=== PATIENT | female | born 1945 | race Caucasian/White ===

== ENCOUNTER 2016-11-01 19:38 | Emergency (ER) | payer BC ==
[2016-11-01 20:20] VITALS: TEMP 98.1; BMI 27.3
--- NOTE | 2016-11-01 21:13 | PDOC ---
History of Present Illness - General History Source: Patient, Family Exam Limitations: No Limitations - History of Present Illness Initial Comments: 11/01/16 21:23 The patient is a 71 year old female with significant past medical history of hypertension, hyperlipidemia, lung CA with bony mets, borderline diabetes and hypothyroidism who presents to the ED for 3 weeks of headache. Patient describes her frontal headache as constant and 8/10 with no changes in vision or dizziness. Daughter, at bedside, noted increased weakness in her legs and states she fell once last week because her legs gave out. Denies LOC or head trauma. Patient also reports 1 week of nausea, vomiting and no appetite secondary to the nausea. Denies abdominal pain and diarrhea. The patient denies fever, chills, cough, SOB, chest pain, and palpitations. Allergies: NKDA Social History: No alcohol, tobacco, or drug use reported. Past Surgical History: hysterectomy PCP: Dr. Florian Clarke <Kamla Lazcano - Last Filed: 11/01/16 21:25> - General History Source: Patient <Baudilio Garner - Last Filed: 11/01/16 23:15> - General Chief Complaint: Headache Stated Complaint: PCP SENT/EVALUATION Time Seen by Provider: 11/01/16 20:38 Past History <Kamla Lazcano - Last Filed: 11/01/16 21:25> - Past Medical History Anemia: No Asthma: No Cancer: Yes (ENDOMETRIAL MANY YRS AGO) Cardiac Disorders: No CVA: No COPD: No CHF: No Dementia: No Diabetes: Yes (BORDERLINE) GI Disorders: No Disorders: No HTN: Yes Hypercholesterolemia: No Liver Disease: No Seizures: No Thyroid Disease: Yes (HYPOTHYROID) - Surgical History Abdominal Surgery: No Appendectomy: No Cardiac Surgery: No Cholecystectomy: No Lung Surgery: No Neurologic Surgery: No Orthopedic Surgery: No - Immunization History Immunization Up to Date: Yes - Psycho/Social/Smoking Cessation Hx Suicidal Ideation: No Smoking History: Former smoker Have you smoked in the past 12 months: No If you are a former smoker, when did you quit?: 40yrs ago Information on smoking cessation initiated: No Hx Alcohol Use: No Drug/Substance Use Hx: No Substance Use Type: None Hx Substance Use Treatment: No <Baudilio Garner - Last Filed: 11/01/16 23:15> - Past Medical History Allergies/Adverse Reactions: Allergies Allergy/AdvReac Type Severity Reaction Status Date / Time No Known Drug Allergies Allergy Verified 11/01/16 20:14 Home Medications: Ambulatory Orders Atenolol [Tenormin -] 50 mg PO DAILY 08/04/14 Levothyroxine [Synthroid -] 50 mcg PO DAILY 08/04/14 Ramipril 2.5 mg PO DAILY 08/04/14 Amlodipine Besylate [Norvasc -] 5 mg PO DAILY 08/25/15 Review of Systems - Review of Systems Able to Perform ROS?: Yes Comments:: 11/01/16 21:23 CONSTITUTIONAL: +decrease appetite Absent: fever, chills, diaphoresis, malaise HEENT: Absent: rhinorrhea, nasal congestion, throat pain, throat swelling, difficulty swallowing, ear pain, eye pain, visual Changes CARDIOVASCULAR: Absent: chest pain, syncope, palpitations, irregular heart rate, lightheadedness , peripheral edema RESPIRATORY: Absent: cough, shortness of breath, dyspnea with exertion, orthopnea, wheezing, stridor, hemoptysis GASTROINTESTINAL: +nausea, vomiting Absent: abdominal pain, abdominal distension, diarrhea, constipation, melena, hematochezia GENITOURINARY: Absent: dysuria, frequency, urgency, hesitancy, hematuria, flank pain, genital pain MUSCULOSKELETAL: +leg weakness Absent: myalgia, arthralgia, joint swelling SKIN: Absent: rash, itching, pallor NEUROLOGIC: +frontal headache Absent: focal paresthesias, dizziness, seizure, mental status changes, bladder or bowel incontinence <Kamla Lazcano - Last Filed: 11/01/16 21:25> *Physical Exam - Vital Signs Last Vital Signs Temp Pulse Resp BP Pulse Ox 98.1 F 105 H 17 143/93 98 11/01/16 20:14 11/01/16 20:14 11/01/16 20:14 11/01/16 20:14 11/01/16 20:14 - Physical Exam Comments: 11/01/16 21:23 GENERAL: Well developed, well nourished. Awake and alert. No acute distress. HEENT: Normocephalic, atraumatic. PERRLA, EOMI. No conjunctival pallor. Sclera are non- icteric. Moist mucous membranes. Oropharynx is clear. NECK: Supple. Full ROM. No JVD. Carotid pulses 2+ and symmetric, without bruits. No thyromegaly. No lymphadenopathy. CARDIOVASCULAR: Regular rate and rhythm. No murmurs, rubs, or gallops. PULMONARY: No evidence of respiratory distress. Lungs clear to auscultation bilaterally. No wheezing, rales or rhonchi. ABDOMINAL: Obese. Soft. Non-tender. Non-distended. No rebound or guarding. Normoactive bowel sounds. MUSCULOSKELETAL Normal range of motion at all joints. No bony deformities or tenderness. No CVA tenderness. EXTREMITIES: No cyanosis. No clubbing. No edema. No calf tenderness. SKIN: Warm and dry. Normal capillary refill. No rashes. No jaundice. NEUROLOGICAL: Alert, awake, appropriate. Cranial nerves 2-12 intact. Moving all extremities. No gross focal neurological deficits. <Kamla Lazcano - Last Filed: 11/01/16 21:25> - Vital Signs Last Vital Signs Temp Pulse Resp BP Pulse Ox 98.1 F 105 H 17 143/93 98 11/01/16 20:14 11/01/16 20:14 11/01/16 20:14 11/01/16 20:14 11/01/16 20:14 <Baudilio Garner - Last Filed: 11/01/16 23:15> ED Treatment Course - LABORATORY CBC & Chemistry Diagram: 11/01/16 21:40 11/01/16 21:40 <Baudilio Garner - Last Filed: 11/01/16 23:15> Medical Decision Making - Medical Decision Making 11/01/16 23:15 Dr. Garner: The scribe's documentation has been prepared under my direction and personally reviewed by me in its entirery. I confirm that the note above accurately reflects all work, treatment, procedures, and medical decision making performed by me. <Baudilio Garner - Last Filed: 11/01/16 23:15> *DC/Admit/Observation/Transfer - Attestations Scribe Attestion: 11/01/16 21:23 Documentation prepared by Kamla Lazcano, acting as medical oncologist for Baudilio Garner MD <Kamla Lazcano - Last Filed: 11/01/16 21:25> - Discharge Dispostion Admit: No <Baudilio Garner - Last Filed: 11/01/16 23:15> Diagnosis at time of Disposition: Headache Qualifiers: Headache type: unspecified Headache chronicity pattern: unspecified pattern Intractability: not intractable Qualified Code(s): R51 - Headache - Discharge Dispostion Disposition: HOME Condition at time of disposition: Stable - Referrals Referrals: Florian Clarke MD [Primary Care Provider] - - Patient Instructions Printed Discharge Instructions: DI for Headache
[2016-11-01] MEDS ORDERED: SODIUM CHLORIDE 1,000 ML IV STA (21:17)
[2016-11-01 21:49] LABS: BASOPHIL 1.3 % (0-2.0); EOSINOPHIL 0.2 % (0-4.5); MCH 28.9 pg (25.7-33.7); MEAN CELL VOLUME 87.8 fl (80-96); MEAN PLT VOLUME 8.4 fl (7.5-11.1); NEUTROPHILS 80.5 % (42.8-82.8); PLATELET COUNT 202 K/MM3 (134-434); RDW 14.5 % (11.6-15.6); WHITE BLOOD COUNT 7.7 K/mm3 (4.0-10.0)
[2016-11-01 22:02] LABS: INR 1.04 (0.82-1.09); PROTHROMBIN TIME (PATIENT) 11.4 SEC (9.98-11.88)
[2016-11-01 22:21] LABS: ALBUMIN 3.7 g/dl (3.4-5.0); BILIRUBIN,TOTAL 0.5 mg/dL (0.2-1.0); CALCIUM 9.3 mg/dL (8.5-10.1); COCKROFT - GAULT 38.6325; CREATININE 1.3 mg/dL (0.55-1.02); TOT PROT 7.2 g/dl (6.4-8.2)
[2016-11-01 22:25] LABS: MAGNESIUM 1.7 mg/dL (1.8-2.4)
[2016-11-01] MEDS ORDERED: OXYCODONE/APAP 5/325MG COMBO TABLET PO ONE (22:42)
[2016-11-01] MEDS ORDERED: OXYCODONE/APAP 5/325MG COMBO TABLET ONE (22:49)
[2016-11-01 23:53] VITALS: BP 138/84; PULSE 90
== END 2016-11-01 23:52 | disposition home or self-care (01) ==
LOC: JER 19:38
PROC: 3E0337Z Introduction of Electrolytic and Water Balance Substance into Peripheral Vein, Percutaneous Approach (ICD-10-PCS; principal; 2016-11-01)
DX: R51 Headache (principal); I10 Essential (primary) hypertension; E78.00 Pure hypercholesterolemia, unspecified; E11.9 Type 2 diabetes mellitus without complications; E03.9 Hypothyroidism, unspecified; Z85.118 Personal history of other malignant neoplasm of bronchus and lung; Z85.830 Personal history of malignant neoplasm of bone
CPT/HCPCS: 36415; 70450-TC; 80053; 82150; 83735; 85025; 85610; 99282-25

== ENCOUNTER 2016-11-06 18:35 | Inpatient (IN) | payer BC, OTHER ==
[2016-11-06] MEDS ORDERED: SODIUM CHLORIDE 1,000 ML IV STA (19:20)
[2016-11-06] MEDS ORDERED: METOCLOPRAMIDE HCL INJECTION 10 MG/2 ML VIAL IVPB ONE (19:20)
[2016-11-06] MEDS ORDERED: METOCLOPRAMIDE HCL INJECTION 10 MG/2 ML VIAL ONE (19:28)
--- NOTE | 2016-11-06 19:38 | PDOC ---
History of Present Illness - General Chief Complaint: Lethargy Stated Complaint: WEAKNESS Time Seen by Provider: 11/06/16 18:52 History Source: Patient, Family Exam Limitations: Clinical Condition - History of Present Illness Initial Comments: 11/06/16 19:39 71yo Female patient w/ PmHx: Lung CA Mets to bone, ??DM, HLD, HTN, Hypothyroidism presents to ED with family c/o lethargy, poor appetite, and vomiting. states patient was seen in this ED last Saturday. He states patient sent by Dr. Blankenship (Oncologist) for "Brain Scan." Patient was then d/c'd to home, but has not really eaten and has no energy since then. Denies Fever, hemoptysis, hematemesis, rectal bleeding, or any other complaints at this time. PCP- Dr. Clarke Oncologist- Dr. Blankenship Timing/Duration: getting worse, changing over time Severity: moderate Modifying Factors: worse with: cold therapy, eating, immobilization, medication , movement, rest, other Associated Symptoms: reports: loss of appetite, nausea/vomiting, weakness. denies: denies symptoms, chest pain, cough, diaphoresis, fever/chills, headaches , malaise, rash, seizure, shortness of breath, syncope, other Aspirin Received prior to arrival: No: no aspirin today, unknown, 81 mg x 1, 81 mg x 2, 81 mg x 3, 81 mg x 4, 325 mg x 1, provided at home, provided by EMS, provided by ED Past History - Travel Traveled outside of the country in the last 30 days: No Close contact w/someone who was outside of country & ill: No - Past Medical History Allergies/Adverse Reactions: Allergies Allergy/AdvReac Type Severity Reaction Status Date / Time No Known Drug Allergies Allergy Verified 11/06/16 18:50 Home Medications: Ambulatory Orders Unobtainable [Unobtainable] 11/07/16 Anemia: No Asthma: No Cancer: Yes (H/O ENDOMETRIAL. LUNG.) Cardiac Disorders: No CVA: No COPD: No CHF: No Dementia: No Diabetes: Yes GI Disorders: No Disorders: No HTN: Yes Hypercholesterolemia: No Liver Disease: No Seizures: No Thyroid Disease: Yes (HYPOTHYROID) - Surgical History Abdominal Surgery: No Appendectomy: No Cardiac Surgery: No Cholecystectomy: No Lung Surgery: No Neurologic Surgery: No Orthopedic Surgery: No - Immunization History Immunization Up to Date: Yes - Psycho/Social/Smoking Cessation Hx Anxiety: No Suicidal Ideation: No Smoking History: Never smoked Have you smoked in the past 12 months: No If you are a former smoker, when did you quit?: 40yrs ago Hx Alcohol Use: No Drug/Substance Use Hx: No Substance Use Type: None Hx Substance Use Treatment: No Review of Systems - Review of Systems Able to Perform ROS?: Yes Is the patient limited Japanese proficient: No Constitutional: Yes: Loss of Appetite, Weakness. No: Chills, Fever HEENTM: No: Throat Pain, Mouth Pain Respiratory: No: Cough, Shortness of Breath Cardiac (ROS): No: Chest Pain, Edema, Lightheadedness, Palpitations, Syncope, Chest Tightness ABD/GI: Yes: Nausea, Poor Appetite, Poor Fluid Intake, Vomiting. No: Constipated, Diarrhea, Rectal Bleeding, Abdominal cramping : No: Dysuria Musculoskeletal: Yes: Muscle Weakness. No: Back Pain Integumentary: No: Erythema, Rash, Sweating Neurological: Yes: Weakness. No: Headache, Seizure, Dizziness All Other Systems: Reviewed and Negative *Physical Exam - Vital Signs Last Vital Signs Temp Pulse Resp BP Pulse Ox 97.8 F 60 16 148/64 96 11/06/16 18:40 11/06/16 18:40 11/06/16 18:40 11/06/16 18:40 11/06/16 18:40 - Physical Exam General Appearance: Yes: Appropriately Dressed, Other (Disheveled). No: Apparent Distress, Mild Distress, Moderate Distress, Severe Distress HEENT: positive: EOMI, DAVID, Normal ENT Inspection, Normal Voice, Symmetrical, TMs Normal, Pharynx Normal. negative: Pharyngeal Erythema, Tonsillar Exudate, Tonsillar Erythema, Nasal Congestion, Rhinorrhea, TM Bulging, TM Dull, TM Erythema Neck: positive: Trachea midline, Supple. negative: Lymphadenopathy (R), Lymphadenopathy (L) Respiratory/Chest: positive: Lungs Clear, Decreased Breath Sounds. negative: Normal Breath Sounds, Respiratory Distress, Accessory Muscle Use, Labored Respiration, Rapid RR, Rales, Rhonchi, Stridor, Wheezing Cardiovascular: positive: Regular Rhythm, Regular Rate Gastrointestinal/Abdominal: positive: Normal Bowel Sounds, Soft. negative: Distended, Guarding, Rebound, Tenderness Musculoskeletal: positive: Normal Inspection. negative: CVA Tenderness Extremity: positive: Normal Capillary Refill, Normal Inspection, Normal Range of Motion. negative: Pedal Edema, Swelling, Calf Tenderness, Erythema, Inflammation Integumentary: positive: Dry, Warm, Pale. negative: Erythema, Jaundice, Swelling Neurologic: positive: security systems specialist II-XII NML intact, Fully Oriented, Alert, Normal Response. 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
[2016-11-06 20:06] LABS: BASOPHIL 0.3 % (0-2.0); EOSINOPHIL 0.2 % (0-4.5); MCH 29.3 pg (25.7-33.7); MCHC 33.4 g/dl (32.0-36.0); MEAN CELL VOLUME 87.7 fl (80-96); MEAN PLT VOLUME 8.1 fl (7.5-11.1); NEUTROPHILS 80.6 % (42.8-82.8); PLATELET COUNT 236 K/MM3 (134-434); RDW 14.3 % (11.6-15.6); WHITE BLOOD COUNT 8.4 K/mm3 (4.0-10.0)
--- NOTE | 2016-11-06 21:35 | PDOC ---
*Physical Exam - Vital Signs Last Vital Signs Temp Pulse Resp BP Pulse Ox 97.8 F 60 16 148/64 96 11/06/16 18:40 11/06/16 18:40 11/06/16 18:40 11/06/16 18:40 11/06/16 18:40 ED Treatment Course - LABORATORY CBC & Chemistry Diagram: 11/07/16 03:39 11/07/16 03:39 - ADDITIONAL ORDERS Additional order review: Laboratory Results 11/06/16 19:48 Sodium Cancelled Potassium Cancelled Chloride Cancelled Carbon Dioxide Cancelled Anion Gap Cancelled BUN Cancelled Creatinine Cancelled Creat Clearance w eGFR Cancelled Random Glucose Cancelled Calcium Cancelled Total Bilirubin Cancelled AST Cancelled ALT Cancelled Alkaline Phosphatase Cancelled Creatine Kinase Cancelled Troponin I Cancelled Total Protein Cancelled Albumin Cancelled Total Amylase Cancelled Lipase Cancelled 11/06/16 19:48 RBC 4.86 MCV 87.7 MCHC 33.4 RDW 14.3 MPV 8.1 Neutrophils % 80.6 Lymphocytes % 11.7 Monocytes % 7.2 Eosinophils % 0.2 Basophils % 0.3 - Medications Given in the ED: ED Medications Discontinued Medications Generic Name Dose Route Start Last Admin Trade Name Freq PRN Reason Stop Dose Admin Sodium Chloride 1,000 mls @ 1,000 mls/hr 11/06/16 19:20 11/06/16 19:50 Normal Saline - IV 11/06/16 20:19 1,000 mls/hr ASDIR STA Administration Metoclopramide HCl 10 mg 11/06/16 19:20 11/06/16 19:50 Reglan Injection - IVPB 11/06/16 19:21 10 mg ONCE ONE Administration Medical Decision Making - Medical Decision Making 11/06/16 21:35 agree with care from PITER Cedillo *DC/Admit/Observation/Transfer Diagnosis at time of Disposition: Lung cancer metastatic to bone, Altered mental status, Dehydration - Discharge Dispostion Condition at time of disposition: Fair
[2016-11-07] MEDS ORDERED: SODIUM CHLORIDE 1,000 ML IV STA (01:19)
[2016-11-07 03:51] LABS: BASOPHIL 0.8 % (0-2.0); EOSINOPHIL 0.4 % (0-4.5); MCH 29.4 pg (25.7-33.7); MCHC 33.8 g/dl (32.0-36.0); MEAN CELL VOLUME 86.9 fl (80-96); MEAN PLT VOLUME 7.8 fl (7.5-11.1); NEUTROPHILS 78.4 % (42.8-82.8); PLATELET COUNT 189 K/MM3 (134-434); WHITE BLOOD COUNT 8.4 K/mm3 (4.0-10.0)
[2016-11-07 04:18] LABS: BILIRUBIN,TOTAL 0.7 mg/dL (0.2-1.0); CALCIUM 8.2 mg/dL (8.5-10.1); COCKROFT - GAULT 52.02; TOT PROT 5.9 g/dl (6.4-8.2)
[2016-11-07] MEDS ORDERED: SODIUM CHLORIDE 1,000 ML IV SCH (06:00)
[2016-11-07] MEDS ORDERED: ONDANSETRON 4 MG/2 ML VIAL IVPB PRN (06:07)
[2016-11-07 06:13] LABS: TROPONIN I 0.04 ng/ml (0.00-0.05)
[2016-11-07] MEDS: D5-1/2NS+20 MEQ KCL - 1,000 ML IV SCH (08:24)
[2016-11-07 11:09] VITALS: BMI 27.8
[2016-11-07] MEDS: ENOXAPARIN NA (PORCINE) 40 MG/0.4 ML DISP.SYRIN SQ SCH (11:28)
--- NOTE | 2016-11-07 13:58 | EKG ---
Test Reason : Blood Pressure : / mmHG Vent. Rate : 061 BPM Atrial Rate : 061 BPM P-R Int : 176 ms QRS Dur : 082 ms QT Int : 416 ms P-R-T Axes : 024 -11 020 degrees QTc Int : 418 ms NORMAL SINUS RHYTHM ANTERIOR INFARCT , AGE UNDETERMINED ABNORMAL ECG WHEN COMPARED WITH ECG OF 25-AUG-2015 03:23, NO SIGNIFICANT CHANGE WAS FOUND Confirmed by LUIS SUERO MD ([id number]) on 11/07/2016 1:57:44 PM Referred By: Confirmed By:LUIS SUERO MD
--- NOTE | 2016-11-07 17:34 | HP ---
Admitting History and Physical - Primary Care Physician PCP: Florian Clarke - Admission Chief Complaint: I feel fine History of Present Illness: Ms Walter is a 71 year old female with history of malignancy who was brought in by her family for anorexia. Patient says she feels fine and is without complaint. She denies fevers, chills, lightheadedness, dizziness, chest pain, shortness of breath, nausea, vomiting, diarrhea, constipation, difficulty or pain on urination, or swelling. Family is at bedside and says Ms Walter was complaining of headache that has now resolved and not eating for the past 4 days , even though they say she was taking ensure. History Source: Patient Limitations to Obtaining History: No Limitations - Past Medical History Cardiovascular: Yes: HTN Pulmonary: Yes: Cancer Heme/Onc: Yes: Cancer Endocrine: Yes: Hypothyroidism, Other (borderline diabetes) - Past Surgical History Past Surgical History: Yes: Hysterectomy - Smoking History Smoking history: Former smoker Have you smoked in the past 12 months: No If you are a former smoker, when did you quit?: 40yrs ago - Alcohol/Substance Use Hx Alcohol Use: No History of Substance Use: reports: None - Social History Usual Living Arrangement: Yes: Other (with family) ADL: Independent History of Recent Travel: No Home Medications - Allergies Allergies/Adverse Reactions: Allergies Allergy/AdvReac Type Severity Reaction Status Date / Time No Known Drug Allergies Allergy Verified 11/06/16 18:50 - Home Medications Home Medications: Ambulatory Orders Atenolol 50 mg PO DAILY 11/07/16 Oxycodone HCl 5 mg PO Q4HWA PRN 11/07/16 Ramipril 2.5 mg PO DAILY 11/07/16 Family Disease History - Family Disease History Family Disease History: Heart Disease: Father, CA: Mother, Brother Review of Systems Findings/Remarks: Full review of systems obtained, as per HPI and otherwise negative Physical Examination Vital Signs: Vital Signs Temperature 97.9 F 11/07/16 14:00 Pulse Rate 62 11/07/16 14:00 Respiratory Rate 11/07/16 14:00 Blood Pressure 159/88 11/07/16 11:14 O2 Sat by Pulse Oximetry (%) 95 11/07/16 06:45 Constitutional: Yes: Well Nourished, No Distress, Calm Eyes: Yes: Conjunctiva Clear, EOM Intact, PERRL HENT: Yes: Atraumatic, Normocephalic Cardiovascular: Yes: Regular Rate and Rhythm. No: Gallop, Murmur, Rub Respiratory: Yes: Regular, CTA Bilaterally. No: Rales, Rhonchi, Wheezes Gastrointestinal: Yes: Normal Bowel Sounds, Soft. No: Distention, Tenderness Extremities: Yes: WNL Edema: No Labs: Laboratory Results - last 24 hr 11/06/16 11/06/16 11/07/16 19:48 19:48 02:30 WBC 8.4 Corrected WBC (auto) RBC 4.86 Hgb 14.2 Hct 42.6 MCV 87.7 MCHC 33.4 RDW 14.3 Plt Count 236 MPV 8.1 Add Manual Diff Neutrophils % 80.6 Lymphocytes % 11.7 Monocytes % 7.2 Eosinophils % 0.2 Basophils % 0.3 Differential Comment Smudge Cells Platelet Estimate Platelet Comment Normal RBC Morphology RBC Morphology Sodium Cancelled Cancelled Potassium Cancelled Cancelled Chloride Cancelled Cancelled Carbon Dioxide Cancelled Cancelled Anion Gap Cancelled Cancelled BUN Cancelled Cancelled Creatinine Cancelled Cancelled Creat Clearance w eGFR Cancelled Cancelled Random Glucose Cancelled Cancelled Calcium Cancelled Cancelled Total Bilirubin Cancelled Cancelled AST Cancelled Cancelled ALT Cancelled Cancelled Alkaline Phosphatase Cancelled Cancelled Creatine Kinase Cancelled Cancelled Troponin I Cancelled Cancelled Total Protein Cancelled Cancelled Albumin Cancelled Cancelled Total Amylase Cancelled Lipase Cancelled 11/07/16 11/07/16 11/07/16 02:30 03:39 03:39 WBC Cancelled 8.4 Corrected WBC (auto) Cancelled RBC Cancelled 4.08 Hgb Cancelled 12.0 D Hct Cancelled 35.5 D MCV Cancelled 86.9 MCHC Cancelled 33.8 RDW Cancelled 14.0 Plt Count Cancelled 189 MPV Cancelled 7.8 Add Manual Diff Cancelled Neutrophils % Cancelled 78.4 Lymphocytes % Cancelled 12.2 Monocytes % Cancelled 8.2 Eosinophils % Cancelled 0.4 D Basophils % Cancelled 0.8 Differential Comment Cancelled Smudge Cells Cancelled Platelet Estimate Cancelled Platelet Comment Cancelled Normal RBC Morphology Cancelled RBC Morphology Cancelled Sodium 138 Potassium 3.6 Chloride 104 Carbon Dioxide 26 Anion Gap 8 BUN 27 H D Creatinine 1.0 D Creat Clearance w eGFR 54.35 Random Glucose 116 H D Calcium 8.2 L Total Bilirubin 0.7 D AST 11 L D ALT 19 D Alkaline Phosphatase 61 Creatine Kinase Troponin I Total Protein 5.9 L Albumin 3.0 L Total Amylase Lipase 11/07/16 11/07/16 03:39 03:39 WBC Corrected WBC (auto) RBC Hgb Hct MCV MCHC RDW Plt Count MPV Add Manual Diff Neutrophils % Lymphocytes % Monocytes % Eosinophils % Basophils % Differential Comment Smudge Cells Platelet Estimate Platelet Comment Normal RBC Morphology RBC Morphology Sodium Potassium Chloride Carbon Dioxide Anion Gap BUN Creatinine Creat Clearance w eGFR Random Glucose Calcium Total Bilirubin AST ALT Alkaline Phosphatase Creatine Kinase Cancelled 38 Troponin I Cancelled 0.04 Total Protein Albumin Total Amylase Lipase Imaging - Results Chest X-ray: Report Reviewed, Image Reviewed Cat Scan: Report Reviewed, Image Reviewed Problem List - Problems (1) Dehydration Assessment/Plan: -resolved -will continue IVF for another 24 hours Code(s): E86.0 - DEHYDRATION (2) Failure to thrive Assessment/Plan: -secondary to malignancy vs chemotherapy -patient says she has loss of appetite and change in taste -will trial megace -continue ensure -encouraged to eat -PT consult Code(s): [id number] - Qualifiers: Failure to thrive age range: in adult Qualified Code(s): R62.7 - Adult failure to thrive (3) Lung cancer metastatic to bone Assessment/Plan: -oncology consulted Code(s): C34.90 - MALIGNANT NEOPLASM OF UNSP PART OF UNSP BRONCHUS OR LUNG C79.51 - SECONDARY MALIGNANT NEOPLASM OF BONE (4) HTN (hypertension) Assessment/Plan: -currently holding medicine -will restart ramipril Code(s): I10 - ESSENTIAL (PRIMARY) HYPERTENSION (5) Headache Assessment/Plan: -CT scan negative -MRI ordered, follow up Code(s): R51 - HEADACHE Qualifiers: Headache type: unspecified Headache chronicity pattern: unspecified pattern Intractability: not intractable Qualified Code(s): R51 - Headache
[2016-11-07] MEDS: MEGESTROL ACETATE 40 MG TABLET PO SCH (21:06)
[2016-11-08] MEDS: D5-1/2NS+20 MEQ KCL - 1,000 ML IV SCH (06:39)
[2016-11-08 07:28] LABS: BASOPHIL 0.4 % (0-2.0); EOSINOPHIL 0.6 % (0-4.5); MCH 29.9 pg (25.7-33.7); MCHC 34.9 g/dl (32.0-36.0); MEAN CELL VOLUME 85.7 fl (80-96); MEAN PLT VOLUME 8.1 fl (7.5-11.1); NEUTROPHILS 77.3 % (42.8-82.8); PLATELET COUNT 189 K/MM3 (134-434); RDW 14.1 % (11.6-15.6)
[2016-11-08 07:49] LABS: CALCIUM 8.6 mg/dL (8.5-10.1); COCKROFT - GAULT 56.7205; CREATININE 0.9 mg/dL (0.55-1.02); MAGNESIUM 1.6 mg/dL (1.8-2.4); PHOSPHOROUS 2.4 mg/dL (2.5-4.9)
[2016-11-08] MEDS ORDERED: RAMIPRIL 2.5 MG PO SCH (10:00)
[2016-11-08] MEDS ORDERED: PT OWN MED DRAWER 7, Y5N ONE (10:12)
[2016-11-08] MEDS: RAMIPRIL 2.5 MG CAPSULE (FP) PO SCH (10:15)
[2016-11-08] MEDS: MEGESTROL ACETATE 40 MG TABLET PO SCH ×2 (10:15→21:12)
[2016-11-08] MEDS: ENOXAPARIN NA (PORCINE) 40 MG/0.4 ML DISP.SYRIN SQ SCH (10:15)
--- NOTE | 2016-11-08 11:35 | PN ---
Progress Note, Physician Chief Complaint: Ms Walter is lethargic but arousable. Without complaints. RN says did not sleep last night. - Current Medication List Current Medications: Active Medications Enoxaparin Sodium (Lovenox -) 40 mg SQ DAILY [facility] Last Admin: 11/08/16 10:15 Dose: 40 mg Potassium Chloride/Dextrose/Sod Cl (D5-1/2ns+20 Meq Kcl -) 1,000 mls @ 100 mls/ hr IV ASDIR [facility] Last Admin: 11/08/16 06:39 Dose: 100 mls/hr Lorazepam (Ativan Injection -) 1 mg IVPUSH ONCE ONE Stop: 11/08/16 11:35 Megestrol Acetate (Megace -) 40 mg PO BID [facility] Last Admin: 11/08/16 10:15 Dose: 40 mg Ondansetron HCl (Zofran Injection) 4 mg IVPB Q6H PRN PRN Reason: NAUSEA Ramipril (Altace -) 2.5 mg PO DAILY [facility] Last Admin: 11/08/16 10:15 Dose: 2.5 mg - Objective Vital Signs: Vital Signs Temperature 98.7 F 11/08/16 10:14 Pulse Rate 59 L 11/08/16 10:14 Respiratory Rate 18 11/08/16 10:14 Blood Pressure 147/78 11/08/16 10:14 O2 Sat by Pulse Oximetry (%) 95 11/07/16 06:45 Constitutional: Yes: Other (lethargic) Cardiovascular: Yes: Regular Rate and Rhythm. No: Gallop, Murmur, Rub Respiratory: Yes: Regular, CTA Bilaterally. No: Rales, Rhonchi, Wheezes Gastrointestinal: Yes: Normal Bowel Sounds, Soft. No: Distention, Tenderness Extremities: Yes: WNL Edema: No Labs: CBC, BMP 11/08/16 06:35 11/08/16 06:35 Problem List - Problems (1) Dehydration Code(s): E86.0 - DEHYDRATION (2) Failure to thrive Code(s): [id number] - Qualifiers: Failure to thrive age range: in adult Qualified Code(s): R62.7 - Adult failure to thrive (3) Lung cancer metastatic to bone Code(s): C34.90 - MALIGNANT NEOPLASM OF UNSP PART OF UNSP BRONCHUS OR LUNG C79.51 - SECONDARY MALIGNANT NEOPLASM OF BONE (4) HTN (hypertension) Code(s): I10 - ESSENTIAL (PRIMARY) HYPERTENSION (5) Headache Code(s): R51 - HEADACHE Qualifiers: Headache type: unspecified Headache chronicity pattern: unspecified pattern Intractability: not intractable Qualified Code(s): R51 - Headache (6) Altered mental status Code(s): R41.82 - ALTERED MENTAL STATUS, UNSPECIFIED Qualifiers: Altered mental status type: somnolence Qualified Code(s): R40.0 - Somnolence Assessment/Plan (1) Dehydration Assessment/Plan: -continue IVF currently -patient with decreased po intake Code(s): E86.0 - DEHYDRATION (2) Failure to thrive Assessment/Plan: -megace started -continue diet and supplementations -PT consult Code(s): [id number] - Qualifiers: Failure to thrive age range: in adult Qualified Code(s): R62.7 - Adult failure to thrive (3) Lung cancer metastatic to bone Assessment/Plan: -oncology consulted Code(s): C34.90 - MALIGNANT NEOPLASM OF UNSP PART OF UNSP BRONCHUS OR LUNG C79.51 - SECONDARY MALIGNANT NEOPLASM OF BONE (4) HTN (hypertension) Assessment/Plan: -continue ramipril Code(s): I10 - ESSENTIAL (PRIMARY) HYPERTENSION (5) Headache Assessment/Plan: -MRI attempted, but patient was mobile -will give ativan prior to MRI Code(s): R51 - HEADACHE Qualifiers: Headache type: unspecified Headache chronicity pattern: unspecified pattern Intractability: not intractable Qualified Code(s): R51 - Headache (6) AMS -suspect secondary to sundowning -low dose temazepam
[2016-11-08] MEDS ORDERED: LORAZEPAM CARPU-JECT 2 MG/ML DISP.SYRIN IVPUSH ONE (18:15)
[2016-11-08] MEDS ORDERED: MAGNESIUM OXIDE 400 MG TABLET (FP) PO ONE ×2 (18:51→21:00)
--- NOTE | 2016-11-08 19:22 | CONSULT ---
Consult - text type - Consultation Consultation Note: Ms Walter is a 71 year old female with history of nonsmall cell lung ca/ adenoca who was brought in by her family for anorexia and altered mental status. Patient is nonverbal. Just had MRI done and is nonverbal . Following simple commands. Had ativan for MRI - Past Medical History Cardiovascular: Yes: HTN Pulmonary: Yes: Cancer Heme/Onc: Yes: Cancer Endocrine: Yes: Hypothyroidism, Other (borderline diabetes) - Past Surgical History Past Surgical History: Yes: Hysterectomy - Smoking History Smoking history: Former smoker - Social History Usual Living Arrangement: Yes: Other (with family) ADL: Independent Home Medications - Allergies Allergies/Adverse Reactions: Allergies Allergy/AdvReac Type Severity Reaction Status Date / Time No Known Drug Allergies Allergy Verified 11/06/16 18:50 - Home Medications Home Medications: Ambulatory Orders Atenolol 50 mg PO DAILY 11/07/16 Oxycodone HCl 5 mg PO Q4HWA PRN 11/07/16 Ramipril 2.5 mg PO DAILY 11/07/16 Home Medication List Medication Instructions Recorded Confirmed Type Atenolol 50 mg PO DAILY 11/07/16 11/07/16 History Oxycodone HCl 5 mg PO Q4HWA PRN 11/07/16 11/07/16 History Ramipril 2.5 mg PO DAILY 11/07/16 11/07/16 History Active Medications Generic Name Dose Route Start Last Admin Trade Name Freq PRN Reason Stop Dose Admin Enoxaparin Sodium 40 mg 11/07/16 10:00 11/08/16 10:15 Lovenox - SQ 40 mg DAILY YUE Administration Potassium Chloride/Dextrose/Sod Cl 1,000 mls @ 100 mls/hr 11/07/16 06:15 06:39 D5-1/2ns+20 Meq Kcl - IV 100 mls/hr ASDIR YUE Administration Megestrol Acetate 40 mg 11/07/16 22:00 11/08/16 10:15 Megace - PO 40 mg BID YUE Administration Ondansetron HCl 4 mg 11/07/16 06:07 Zofran Injection IVPB Q6H PRN NAUSEA Ramipril 2.5 mg 11/08/16 10:00 11/08/16 10:15 Altace - PO 2.5 mg DAILY YUE Administration Temazepam 15 mg 11/08/16 22:00 Restoril - PO HS YUE Family Disease History - Family Disease History Family Disease History: Heart Disease: Father, CA: Mother, Brother Review of Systems Findings/Remarks: Full review of systems obtained, as per HPI and otherwise negative Physical Examination Vital Signs: Vital Signs Temperature 97.9 F 11/07/16 14:00 Pulse Rate 62 11/07/16 14:00 Respiratory Rate 17 11/07/16 14:00 Blood Pressure 159/88 11/07/16 11:14 O2 Sat by Pulse Oximetry (%) 95 11/07/16 06:45 Thrush+ Constitutional: Yes: Well Nourished, No Distress, Calm Cardiovascular: Yes: Regular Rate and Rhythm. No: Gallop, Murmur, Rub Respiratory: Yes: Regular, CTA Bilaterally. No: Rales, Rhonchi, Wheezes Gastrointestinal: Yes: Normal Bowel Sounds, Soft. No: Distention, Tenderness Extremities: Yes: WNL following simple commands nonfocal Labs: Abnormal Lab Results 11/08/16 06:35 BUN 19 H D Random Glucose 137 H Phosphorus 2.4 L Magnesium 1.6 L Imaging - Results Chest X-ray: Report Reviewed, Image Reviewed Cat Scan: Report Reviewed, Image Reviewed Problem List 71 y/o female with metastatic lung cancer, adeno ca had been on carbo/alimta and more recently, tarceva, comes in with headache and failure to thrive concerning for progressive disease to chek MRI brain ?? paraneoplastic phenomenon ? leptomeningeal disease await MRI brain nystatin for thrush palliative care consult
[2016-11-08 19:27] LABS: URINE APPEARANCE CLEAR; URINE BILIRUBIN NEGATIVE (NEGATIVE); URINE BLOOD NEGATIVE (NEGATIVE); URINE COLOR LTYELLOW; URINE GLUCOSE (UA) 1+ (NEGATIVE); URINE KETONE NEGATIVE (NEGATIVE); URINE LEUK ESTERASE NEGATIVE (NEGATIVE); URINE NITRITE NEGATIVE (NEGATIVE); URINE PROTEIN NEGATIVE (NEGATIVE); URINE UROBILINOGEN NEGATIVE E.U./dl (0.2-1.0)
[2016-11-08] MEDS: TEMAZEPAM 15 MG CAPSULE PO SCH (21:12)
[2016-11-09] MEDS: NYSTATIN 500,000 UNITS/5 ML SUSPENSION PO SCH ×5 (00:27→23:01)
[2016-11-09] MEDS: D5-1/2NS+20 MEQ KCL - 1,000 ML IV SCH (06:32)
[2016-11-09 07:52] LABS: MCH 29.7 pg (25.7-33.7); MCHC 34.1 g/dl (32.0-36.0); MEAN CELL VOLUME 86.9 fl (80-96); PLATELET COUNT 185 K/MM3 (134-434); RDW 13.7 % (11.6-15.6); WHITE BLOOD COUNT 6.5 K/mm3 (4.0-10.0)
[2016-11-09 07:58] LABS: CALCIUM 8.7 mg/dL (8.5-10.1); COCKROFT - GAULT 56.7205; CREATININE 0.9 mg/dL (0.55-1.02); MAGNESIUM 1.8 mg/dL (1.8-2.4); PHOSPHOROUS 1.6 mg/dL (2.5-4.9)
[2016-11-09] MEDS ORDERED: PT OWN MED DRAWER 7, Y5N ONE (09:58)
[2016-11-09] MEDS: ENOXAPARIN NA (PORCINE) 40 MG/0.4 ML DISP.SYRIN SQ SCH (10:01)
[2016-11-09] MEDS: RAMIPRIL 2.5 MG CAPSULE (FP) PO SCH (10:02)
[2016-11-09] MEDS: MEGESTROL ACETATE 40 MG TABLET PO SCH ×2 (10:02→21:06)
[2016-11-09 11:02] LABS: METAMYELOCYTE 3 % (0-2)
[2016-11-09 11:03] LABS: PLATELET ESTIMATE ADEQUATE (NORMAL)
--- NOTE | 2016-11-09 12:15 | PN ---
Progress Note, Physician Chief Complaint: Ms Walter remains lethargic. Unable to obtain subjective. - Current Medication List Current Medications: Active Medications Enoxaparin Sodium (Lovenox -) 40 mg SQ DAILY [facility] Last Admin: 11/09/16 10:01 Dose: 40 mg Potassium Chloride/Dextrose/Sod Cl (D5-1/2ns+20 Meq Kcl -) 1,000 mls @ 100 mls/ hr IV ASDIR [facility] Last Admin: 11/09/16 06:32 Dose: 100 mls/hr Potassium Phosphate 16 mm/ (Sodium Chloride) 255.3333 mls @ 62.5 mls/hr IVPB ONCE ONE Stop: 11/09/16 17:05 Megestrol Acetate (Megace -) 40 mg PO BID [facility] Last Admin: 11/09/16 10:02 Dose: 40 mg Nystatin (Nystatin Oral Suspension -) 500,000 units PO Q6HPO [facility] Last Admin: 11/09/16 05:53 Dose: Not Given Ondansetron HCl (Zofran Injection) 4 mg IVPB Q6H PRN PRN Reason: NAUSEA Ramipril (Altace -) 2.5 mg PO DAILY [facility] Last Admin: 11/09/16 10:02 Dose: 2.5 mg Temazepam (Restoril -) 15 mg PO HS [facility] Last Admin: 11/08/16 21:12 Dose: 15 mg - Objective Vital Signs: Vital Signs Temperature 98.0 F 11/09/16 08:00 Pulse Rate 59 L 11/09/16 08:00 Respiratory Rate 20 11/09/16 08:00 Blood Pressure 152/88 11/09/16 08:00 O2 Sat by Pulse Oximetry (%) 94 L 11/09/16 08:00 Constitutional: Yes: Well Nourished, No Distress, Calm Cardiovascular: Yes: Regular Rate and Rhythm. No: Gallop, Murmur, Rub Respiratory: Yes: Regular, CTA Bilaterally. No: Rales, Rhonchi, Wheezes Gastrointestinal: Yes: Normal Bowel Sounds, Soft. 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 Code(s): C34.90 - MALIGNANT NEOPLASM OF UNSP PART OF UNSP BRONCHUS OR LUNG C79.51 - SECONDARY MALIGNANT NEOPLASM OF BONE (5) HTN (hypertension) Code(s): I10 - ESSENTIAL (PRIMARY) HYPERTENSION (6) Headache Code(s): R51 - HEADACHE Qualifiers: Headache type: unspecified Headache chronicity pattern: unspecified pattern Intractability: not intractable Qualified Code(s): R51 - Headache (7) Altered mental status Code(s): R41.82 - ALTERED MENTAL STATUS, UNSPECIFIED Qualifiers: Altered mental status type: somnolence Qualified Code(s): R40.0 - Somnolence Assessment/Plan (1) Obstructive hydrocephalus -cause of somnolence -case d/w neurosurgery, stated no need for shunt placement -recommended LP to help relieve pressure and obtain cytology -spoke with IR, states LP is not indicated -neurology consulted to evaluate and comment on whether LP is appropriate or not -if needs urgent neurosurgical intervention, will need transfer as no neurosurgery clinical documentation consultant currently (2) Dehydration Assessment/Plan: -continue IVF currently -patient with decreased po intake Code(s): E86.0 - DEHYDRATION (3) Failure to thrive Assessment/Plan: -megace started -continue diet and supplementations -PT consult Code(s): [id number] - Qualifiers: Failure to thrive age range: in adult Qualified Code(s): R62.7 - Adult failure to thrive (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
[2016-11-09 12:58] LABS: INR 1.11 (0.82-1.09); PROTHROMBIN TIME (PATIENT) 12.2 SEC (9.98-11.88)
[2016-11-09] MEDS ORDERED: POTASSIUM PHOSPHATE 16 MM in SODIUM CHLORIDE 250 ML IVPB ONE (13:00)
[2016-11-09 13:13] LABS: INR 1.1 (0.82-1.09); PROTHROMBIN TIME (PATIENT) 12.1 SEC (9.98-11.88)
[2016-11-09 13:15] LABS: ACTIVATED PTT 37.6 SECONDS (26.9-34.4)
--- NOTE | 2016-11-09 16:53 | PN ---
Progress Note (short form) - Note Progress Note: patient seen and examined nonverbal/mutism Last Vital Signs Temp Pulse Resp BP Pulse Ox 98.1 F 59 L 20 147/78 94 L 11/09/16 17:49 11/09/16 17:49 11/09/16 17:49 11/09/16 17:49 11/09/16 08:00 Cor: RSR, No murmurs, No gallops Lungs: Clear to P&A Abd: Soft, Normal bowel sounds, No organomegaly Ext:No significant edema Skin: No rashes, Integument intact Abnormal Lab Results 11/09/16 11/09/16 11/09/16 05:35 05:35 12:30 Metamyelocytes 3 H D PTT (Actin FS) 37.6 H Random Glucose 151 H Phosphorus 1.6 L D Home Medication List Medication Instructions Recorded Confirmed Type Atenolol 50 mg PO DAILY 11/07/16 11/07/16 History Oxycodone HCl 5 mg PO Q4HWA PRN 11/07/16 11/07/16 History Ramipril 2.5 mg PO DAILY 11/07/16 11/07/16 History Active Medications Generic Name Dose Route Start Last Admin Trade Name Freq PRN Reason Stop Dose Admin Enoxaparin Sodium 40 mg 11/07/16 10:00 11/09/16 10:01 Lovenox - SQ 40 mg DAILY YUE Administration Potassium Chloride/Dextrose/Sod Cl 1,000 mls @ 100 mls/hr 11/07/16 06:15 06:32 D5-1/2ns+20 Meq Kcl - IV 100 mls/hr ASDIR YUE Administration Megestrol Acetate 40 mg 11/07/16 22:00 11/09/16 21:06 Megace - PO 40 mg BID YUE Administration Nystatin 500,000 units 11/09/16 00:00 11/09/16 18:15 Nystatin Oral Suspension - PO Not Given Q6HPO YUE Ondansetron HCl 4 mg 11/07/16 06:07 Zofran Injection IVPB Q6H PRN NAUSEA Ramipril 2.5 mg 11/08/16 10:00 11/09/16 10:02 Altace - PO 2.5 mg DAILY YUE Administration Temazepam 15 mg 11/08/16 22:00 11/09/16 21:07 Restoril - PO 15 mg HS YUE Administration Thiamine HCl 200 mg 11/09/16 18:45 11/09/16 20:20 Vitamin B1 Injection - IVPB 200 mg DAILY YUE Administration a/p 71 y/o female with metastatic lung cancer, adeno ca had been on carbo/alimta and more recently, tarceva, comes in with headache and failure to thrive concerning for progressive disease to chek MRI brain ?? paraneoplastic phenomenon ? leptomeningeal disease spoke with dr. [place] MRI reviewed ? atrophy, ventricular dilatation ? toxic metabolic encephalopathy >?leptomeningeal disease check cultures check ammonia ? LP with cytology
--- NOTE | 2016-11-09 18:36 | CONSULT ---
Consult - text type - Consultation Consultation Note: NEUROLOGY CONSULTATION is greatly appreciated: This 71 yo woman lives with her family. H/O HTN, DM, Hypothyroidism on ramipril , lovenox, KCl, lorazepam. Known Lung CA metastatic to bone. At least one week of progressive lethargy. Was seen in our ED last Saturday (1 week SUSTAINABILITY ANALYST) with weakness and lethargy. Sent home but hasn't eaten since. CT and MRI of brain (reviewed): Moderately severe, diffuse atrophy with ex vacuo enlargement of the ventricles. Periventricular microvascular changes +/- periventricular edema. No metastases or mass effect. TIANA: Thin. Cushingoid? Neck supple. Kernig - Tongue dry with white plaques. NEURO: Essentially mute. nods appropriately to simple questions. Impossible to assess orientation of mental status. Frontal release findings are absent. CN II-XII: Blinks to threat all castle. No facial. Full EOMs. Motor: No drift or tremor. No cogwheeling. Moves all fours. No contractures. Normal reflexes except absent AJ's. Toes downgoing. Coord: No obvious dystaxia Sensory: Withdraws all 4's to pinch. IMP: Non-focal exam. Cannot fully assess cognition due to mutism. Neuroimaging more consistent with atrophy than hydrocephalus. No evidence for WASTEWATER PROJECT MANAGER metastases. SUGGEST: STAT TSH, T4 to r/o Myxedema. B12, B1 Agree with LP to R/O gram negative meningitis and meningeal carcinomatosis. (Please send CSF cytologies in addition to routines). Continue hydration and nutritional support. Add thiamine to IV fluids and supplement parenterally. Thank you very much, Michael Palmer MD
[2016-11-09] MEDS: THIAMINE HCL 200 MG/2 ML VIAL IVPB SCH (20:20)
[2016-11-09] MEDS ORDERED: DEXAMETHASONE SOD PHOSPHATE 4 MG/1 ML VIAL IVPB SCH (21:00)
[2016-11-09] MEDS: TEMAZEPAM 15 MG CAPSULE PO SCH (21:07)
[2016-11-10] MEDS: NYSTATIN 500,000 UNITS/5 ML SUSPENSION PO SCH ×3 (05:29→17:03)
[2016-11-10] MEDS: D5-1/2NS+20 MEQ KCL - 1,000 ML IV SCH ×2 (06:01→21:54)
[2016-11-10 08:14] LABS: INR 1.08 (0.82-1.09); PROTHROMBIN TIME (PATIENT) 11.9 SEC (9.98-11.88)
[2016-11-10 08:17] LABS: ACTIVATED PTT 30.8 SECONDS (26.9-34.4)
[2016-11-10 08:37] LABS: MCH 29.4 pg (25.7-33.7); MCHC 34.1 g/dl (32.0-36.0); MEAN PLT VOLUME 8.1 fl (7.5-11.1); PLATELET COUNT 201 K/MM3 (134-434); RDW 14.1 % (11.6-15.6); WHITE BLOOD COUNT 8.8 K/mm3 (4.0-10.0)
[2016-11-10 08:43] LABS: COCKROFT - GAULT 63.8095; CREATININE 0.8 mg/dL (0.55-1.02); MAGNESIUM 1.9 mg/dL (1.8-2.4); PHOSPHOROUS 2.4 mg/dL (2.5-4.9)
--- NOTE | 2016-11-10 09:00 | PN ---
Progress Note (short form) - Note Progress Note: Not communicative arousable O/E Vital Signs Period Temp Pulse Resp BP Sys/Carlos Pulse Ox Last 24 Hr 97.1 F-98.4 F 59-66 18-20 138-148/74-78 Heart regular Lungs clear Abd soft Ext trace edema Current Medications Enoxaparin Sodium (Lovenox -) 40 mg SQ DAILY [facility] Last Admin: 11/09/16 10:01 Dose: 40 mg Potassium Chloride/Dextrose/Sod Cl (D5-1/2ns+20 Meq Kcl -) 1,000 mls @ 100 mls/ hr IV ASDIR [facility] Last Admin: 11/10/16 06:01 Dose: 100 mls/hr Megestrol Acetate (Megace -) 40 mg PO BID [facility] Last Admin: 11/09/16 21:06 Dose: 40 mg Nystatin (Nystatin Oral Suspension -) 500,000 units PO Q6HPO [facility] Last Admin: 11/10/16 05:29 Dose: Not Given Ondansetron HCl (Zofran Injection) 4 mg IVPB Q6H PRN PRN Reason: NAUSEA Ramipril (Altace -) 2.5 mg PO DAILY [facility] Last Admin: 11/09/16 10:02 Dose: 2.5 mg Temazepam (Restoril -) 15 mg PO HS [facility] Last Admin: 11/09/16 21:07 Dose: 15 mg Thiamine HCl (Vitamin B1 Injection -) 200 mg IVPB DAILY [facility] Last Admin: 11/09/16 20:20 Dose: 200 mg Laboratory Last Values WBC 8.8 K/mm3 (4.0-10.0) D 11/10/16 06:40 Corrected WBC (auto) Cancelled 11/07/16 02:30 RBC 4.57 M/mm3 (3.60-5.2) 11/10/16 06:40 Hgb 13.4 GM/dL (10.7-15.3) 11/10/16 06:40 Hct 39.3 % (32.4-45.2) 11/10/16 06:40 MCV 86.0 fl (80-96) 11/10/16 06:40 MCHC 34.1 g/dl (32.0-36.0) 11/10/16 06:40 RDW 14.1 % (11.6-15.6) 11/10/16 06:40 Plt Count 201 K/MM3 (134-434) 11/10/16 06:40 MPV 8.1 fl (7.5-11.1) 11/10/16 06:40 Add Manual Diff Cancelled 11/07/16 02:30 Neutrophils % Y 11/10/16 06:40 Lymphocytes % Y 11/10/16 06:40 Monocytes % 8.0 % (3.8-10.2) 11/09/16 05:35 Eosinophils % 1.0 % (0-4.5) 11/09/16 05:35 Basophils % 0.4 % (0-2.0) 11/08/16 06:35 Metamyelocytes 3 % (0-2) H D 11/09/16 05:35 Myelocytes 1 % (0-2) D 11/09/16 05:35 Differential Comment Manual diff done 11/09/16 05:35 Smudge Cells Cancelled 11/07/16 02:30 Platelet Estimate Adequate (NORMAL) 11/09/16 05:35 Platelet Comment Cancelled 11/07/16 02:30 Platelet Comment Cancelled 11/07/16 02:30 Normal RBC Morphology Cancelled 11/07/16 02:30 RBC Morphology Cancelled 11/07/16 02:30 INR 1.08 (0.82-1.09) 11/10/16 06:40 PTT (Actin FS) 30.8 SECONDS (26.9-34.4) 11/10/16 06:40 Sodium 135 mmol/L (136-145) L 11/10/16 06:40 Potassium 3.7 mmol/L (3.5-5.1) 11/10/16 06:40 Chloride 101 mmol/L (98-107) 11/10/16 06:40 Carbon Dioxide 23 mmol/L (21-32) 11/10/16 06:40 Anion Gap 11 (8-16) 11/10/16 06:40 BUN 11 mg/dL (7-18) D 11/10/16 06:40 Creatinine 0.8 mg/dL (0.55-1.02) 11/10/16 06:40 Creat Clearance w eGFR 54.35 (>60) 11/07/16 03:39 Random Glucose 146 mg/dL (74-106) H 11/10/16 06:40 Calcium 9.0 mg/dL (8.5-10.1) 11/10/16 06:40 Phosphorus 2.4 mg/dL (2.5-4.9) L D 11/10/16 06:40 Magnesium 1.9 mg/dL (1.8-2.4) 11/10/16 06:40 Total Bilirubin 0.7 mg/dL (0.2-1.0) D 11/07/16 03:39 AST 11 U/L (15-37) L D 11/07/16 03:39 ALT 19 U/L (12-78) D 11/07/16 03:39 Alkaline Phosphatase 61 U/L (45-117) 11/07/16 03:39 Ammonia < 10.00 umol/L (11-32) L 11/09/16 21:40 Creatine Kinase 38 IU/L (26-192) 11/07/16 03:39 Troponin I 0.04 ng/ml (0.00-0.05) 11/07/16 03:39 Total Protein 5.9 g/dl (6.4-8.2) L 11/07/16 03:39 Albumin 3.0 g/dl (3.4-5.0) L 11/07/16 03:39 Total Amylase Cancelled 11/06/16 19:48 Lipase Cancelled 11/06/16 19:48 TSH 3.76 uIU/ml (0.358-3.74) H 11/09/16 21:40 Urine Color Ltyellow 11/08/16 18:00 Urine Appearance Clear 11/08/16 18:00 Urine pH 6.0 (5.0-8.0) 11/08/16 18:00 Ur Specific [place] 1.010 (1.005-1.025) 11/08/16 18:00 Urine Protein Negative (NEGATIVE) 11/08/16 18:00 Urine Glucose (UA) 1+ (NEGATIVE) H 11/08/16 18:00 Urine Ketones Negative (NEGATIVE) 11/08/16 18:00 Urine Blood Negative (NEGATIVE) 11/08/16 18:00 Urine Nitrite Negative (NEGATIVE) 11/08/16 18:00 Urine Bilirubin Negative (NEGATIVE) 11/08/16 18:00 Urine Urobilinogen Negative E.U./dl (0.2-1.0) 11/08/16 18:00 Ur Leukocyte Esterase Negative (NEGATIVE) 11/08/16 18:00 A&P Assessment/Plan (1) Obstructive hydrocephalus Neuro noted, If LP has to be done then Neuro should proceed. 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
[2016-11-10] MEDS: RAMIPRIL 2.5 MG CAPSULE (FP) PO SCH (09:16)
[2016-11-10] MEDS: MEGESTROL ACETATE 40 MG TABLET PO SCH ×2 (09:17→21:55)
[2016-11-10] MEDS ORDERED: PT OWN MED DRAWER 7, Y5N ONE ×2 (09:18→21:46)
[2016-11-10] MEDS: THIAMINE HCL 200 MG/2 ML VIAL IVPB SCH (09:24)
[2016-11-10] MEDS: ENOXAPARIN NA (PORCINE) 40 MG/0.4 ML DISP.SYRIN SQ SCH (09:24)
[2016-11-10] MEDS ORDERED: DEXAMETHASONE SOD PHOSPHATE 10 MG/1 ML VIAL IVPUSH ONE (09:45)
[2016-11-10] MEDS ORDERED: VANCOMYCIN 1 GRAM (PRE-DOCKED) 1,000 MG/250 ML BAG IVPB ONE ×2 (10:00→13:00)
[2016-11-10] MEDS ORDERED: cefTRIAXone 2 GM/100 ML BAG (PRE-DOCKED) IVPB SCH (10:00)
--- NOTE | 2016-11-10 11:04 | PN ---
Progress Note (short form) - Note Progress Note: ID Consult dictated 71 year old female with metastatic lung ca admitted with altered mental status, anorexia, N/V. MRI brain shows acute/ subacute hydrocephalus US abdomen shows chronic cholecystitis Pt afebrile with normal WBC Possible reasons for altered mentation include hydrocephalus, toxic-metabolic encephalopathy, carcinomatous v. bacterial meningitis. Await c/s CSF analysis for cytology/ cultures Empiric ceftriaxone/ ampicillin
[2016-11-10 11:14] LABS: PLATELET ESTIMATE ADEQUATE (NORMAL)
--- NOTE | 2016-11-10 12:19 | CONSULT ---
Consult - text type - Consultation Consultation Note: Progress Note: patient seen and examined nonverbal/mutism gets up but then drifts back to sleep Vital Signs Period Temp Pulse Resp BP Sys/Carlos Pulse Ox Last 24 Hr 97.1 F-98.6 F 59-85 18-20 138-160/74-103 Cor: RSR, No murmurs, No gallops Lungs: Clear to P&A Abd: Soft, Normal bowel sounds, No organomegaly Ext:No significant edema Skin: No rashes, Integument intact CBC, BMP 11/10/16 06:40 11/10/16 06:40 Current Medications Generic Name Dose Route Start Last Admin Trade Name Freq PRN Reason Stop Dose Admin Enoxaparin Sodium 40 mg 11/07/16 10:00 11/10/16 09:24 Lovenox - SQ 40 mg DAILY YUE Administration Potassium Chloride/Dextrose/Sod Cl 1,000 mls @ 100 mls/hr 11/07/16 06:15 06:01 D5-1/2ns+20 Meq Kcl - IV 100 mls/hr ASDIR YUE Administration Ceftriaxone Sodium 100 mls @ 200 mls/hr 11/10/16 11:30 Rocephin 2gm Ivpb (Pre-Docked) IVPB BID YUE Ampicillin Sodium 2 gm/ Sodium 100 mls @ 200 mls/hr 11/10/16 11:45 Chloride IVPB Q6H-IV YUE Megestrol Acetate 40 mg 11/07/16 22:00 11/10/16 09:17 Megace - PO Not Given BID YUE Nystatin 500,000 units 11/09/16 00:00 11/10/16 11:16 Nystatin Oral Suspension - PO Not Given Q6HPO YUE Ondansetron HCl 4 mg 11/07/16 06:07 Zofran Injection IVPB Q6H PRN NAUSEA Ramipril 2.5 mg 11/08/16 10:00 11/10/16 09:16 Altace - PO Not Given DAILY YUE Temazepam 15 mg 11/08/16 22:00 11/09/16 21:07 Restoril - PO 15 mg HS YUE Administration Thiamine HCl 200 mg 11/09/16 18:45 11/10/16 09:24 Vitamin B1 Injection - IVPB 200 mg DAILY YUE Administration a/p 71 y/o female with metastatic lung cancer, adeno ca had been on carbo/alimta and more recently, tarceva, comes in with headache and failure to thrive concerning for progressive disease ?? paraneoplastic phenomenon ? leptomeningeal disease apparent ex vacuo hydrocephalus due to brain atrophy -LP with cytology and to r/o infectious cause need to discuss with family re- DNR/DNI
[2016-11-10] MEDS: AMPICILLIN - 2 GM in SODIUM CHLORIDE 100 ML IVPB SCH ×3 (12:37→21:48)
[2016-11-10] MEDS: CEFTRIAXONE 100 ML IVPB SCH ×2 (13:21→21:55)
[2016-11-10] MEDS ORDERED: AMPICILLIN IVPB SCH (15:00)
[2016-11-10] MEDS ORDERED: SODIUM CHLORIDE IVPB SCH (15:00)
--- NOTE | 2016-11-10 19:00 | PN ---
Progress Note (short form) - Note Progress Note: NEUROLOGY FOLLOW-UP: Events reviewed and discussed with staff. Patient examined. MRI c/w hydrocephalus with enlarged third ventricle and periventricular edema. TSH= 3.76 Given decadron 10 mg IV bolus x 1 this AM On thiamine IV Dr. Peralta's consult is greatly appreciated. Started on ceftriaxone and ampicillin this AM. More awake, alert and responsive but confused. Follows simple commands. Gibberish speech. ? Decreased response to threat from Right. Increased Right nasolabial fold. Moves Left side >>>Right. IMP: Possible obstructive hydrocephalus. Etiology? Possible Left cerebral dysfunction. Overall Pt is better today (Why? Decadron? antibiotics? thiamine?) SUGGEST: Repeat MRI of brain (C-) in AM to BOTH follow for increasing hydrocephalus and to r/o Left CVA or metastasis. OK that LP not done today since it may not be possible to process cytologies until Saturday. OK for Dr. Garcia to consult on Saturday AM and compare the MRI scans. Continue empirical antibiotics for possible, indolent, gram - meningitis. IF patient deteriorates would consider 2nd dose of decadron Thank you very much, Michael Palmer MD
[2016-11-10] MEDS: TEMAZEPAM 15 MG CAPSULE PO SCH (21:55)
[2016-11-11] MEDS: NYSTATIN 500,000 UNITS/5 ML SUSPENSION PO SCH ×4 (00:23→17:02)
[2016-11-11] MEDS ORDERED: PT OWN MED DRAWER 7, Y5N ONE ×3 (02:36→21:07)
[2016-11-11] MEDS: AMPICILLIN - 2 GM in SODIUM CHLORIDE 100 ML IVPB SCH ×4 (02:38→21:11)
--- NOTE | 2016-11-11 08:45 | PN ---
Progress Note (short form) - Note Progress Note: NEUROSURGERY CONSULT DICTATED Chart reviewed Pt examined Brain imaging reviewed H/O metastatic lung adenoCA with bone mets, HTN, DM, Hypothyroidism admitted with one week of lethargy. More awake since admission Denies H/A, N/V PE: T 98.4, VSS HEENT-NC/AT; Neck- supple; Cor- RR; Lungs- CTA B; Abd- benign; Ext- no sign of DVT Following commands; Awake, oriented x1 CN- intact; Motor- at least 4/5 B UE/LE; Sensation- grossly intact LT; DTR- 1+ and symmetric; toes equivocal INR 1.08; ptt 30.8, WBC 8.8, platelet 201; Cr 0.8; Na [address]- moderate cerebral atrophy with periventricular small vessel dz; mild ventricular dilatation of lateral & third > fourth ventricles; no acute bleed MRI with/without (5-4): moderate atrophy, mild-moderate dilatation of third and lateral > fourth ventricles; periventricular T2 hyperintensity most consistent with gliosis though a degree of transependymal CSF is possible; no acute ischemia 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
[2016-11-11] MEDS: D5-1/2NS+20 MEQ KCL - 1,000 ML IV SCH (11:01)
[2016-11-11] MEDS: CEFTRIAXONE 100 ML IVPB SCH ×2 (11:02→21:31)
[2016-11-11] MEDS: ENOXAPARIN NA (PORCINE) 40 MG/0.4 ML DISP.SYRIN SQ SCH (11:03)
[2016-11-11] MEDS: THIAMINE HCL 200 MG/2 ML VIAL IVPB SCH (11:04)
[2016-11-11] MEDS: MEGESTROL ACETATE 40 MG TABLET PO SCH ×2 (11:04→21:31)
[2016-11-11] MEDS: RAMIPRIL 2.5 MG CAPSULE (FP) PO SCH (11:04)
--- NOTE | 2016-11-11 11:53 | PN ---
Progress Note (short form) - Note Progress Note: Consult - text type - Consultation Consultation Note: Progress Note: patient seen and examined better today is interactive and rememberss and but cannot still talk in complete sentences Vital Signs Period Temp Pulse Resp BP Sys/Carlos Pulse Ox Last 24 Hr 98 F-98.4 F 62-71 20-20 113-126/58-70 95 Cor: RSR, No murmurs, No gallops Lungs: Clear to P&A Abd: Soft, Normal bowel sounds, No organomegaly Ext:No significant edema Skin: No rashes, Integument intact CBC, BMP 11/10/16 06:40 11/10/16 06:40 Active Medications Generic Name Dose Route Start Last Admin Trade Name Freq PRN Reason Stop Dose Admin Enoxaparin Sodium 40 mg 11/07/16 10:00 11/11/16 11:03 Lovenox - SQ 40 mg DAILY YUE Administration Potassium Chloride/Dextrose/Sod Cl 1,000 mls @ 100 mls/hr 11/07/16 06:15 11:01 D5-1/2ns+20 Meq Kcl - IV 100 mls/hr ASDIR YUE Administration Ceftriaxone Sodium 100 mls @ 200 mls/hr 11/10/16 11:30 11/11/16 11:02 Rocephin 2gm Ivpb (Pre-Docked) IVPB 200 mls/hr BID YUE Administration Ampicillin Sodium 2 gm/ Sodium 100 mls @ 200 mls/hr 11/10/16 11:45 11/11/16 11: 01 Chloride IVPB 200 mls/hr Q6H-IV YUE Administration Megestrol Acetate 40 mg 11/07/16 22:00 11/11/16 11:04 Megace - PO 40 mg BID YUE Administration Nystatin 500,000 units 11/09/16 00:00 11/11/16 06:02 Nystatin Oral Suspension - PO Not Given Q6HPO YUE Ondansetron HCl 4 mg 11/07/16 06:07 Zofran Injection IVPB Q6H PRN NAUSEA Ramipril 2.5 mg 11/08/16 10:00 11/11/16 11:04 Altace - PO 2.5 mg DAILY YUE Administration Temazepam 15 mg 11/08/16 22:00 11/10/16 21:55 Restoril - PO 15 mg HS YUE Administration Thiamine HCl 200 mg 11/09/16 18:45 11/11/16 11:04 Vitamin B1 Injection - IVPB 200 mg DAILY YUE Administration a/p 71 y/o female with metastatic lung cancer, adeno ca had been on carbo/alimta and more recently, tarceva, comes in with headache and failure to thrive concerning for progressive disease ?? paraneoplastic phenomenon ? leptomeningeal disease -improved on 1 dose of dexamethaonse -plan to repeat MRI in AM to follow -unclear what caused this AMS but sustained improvement is unlikely if malignancy need to discuss with family re- DNR/DNI
--- NOTE | 2016-11-11 15:22 | PN ---
Progress Note (short form) - Note Progress Note: No head aches and has no complaints O/E Vital Signs Period Temp Pulse Resp BP Sys/Carlos Pulse Ox Last 24 Hr 97.9 F-98.4 F 56-71 17-20 113-165/58-72 95-95 Allert and awake answers all questions appropriately Heart regular Lungs clear Abd soft Ext no edema ] Current Medications Enoxaparin Sodium (Lovenox -) 40 mg SQ DAILY [facility] Last Admin: 11/11/16 11:03 Dose: 40 mg Potassium Chloride/Dextrose/Sod Cl (D5-1/2ns+20 Meq Kcl -) 1,000 mls @ 100 mls/ hr IV ASDIR [facility] Last Admin: 11/11/16 11:01 Dose: 100 mls/hr Ceftriaxone Sodium (Rocephin 2gm Ivpb (Pre-Docked)) 100 mls @ 200 mls/hr IVPB BID [facility] Last Admin: 11/11/16 11:02 Dose: 200 mls/hr Ampicillin Sodium 2 gm/ Sodium (Chloride) 100 mls @ 200 mls/hr IVPB Q6H-IV [facility] Last Admin: 11/11/16 11:01 Dose: 200 mls/hr Megestrol Acetate (Megace -) 40 mg PO BID [facility] Last Admin: 11/11/16 11:04 Dose: 40 mg Nystatin (Nystatin Oral Suspension -) 500,000 units PO Q6HPO [facility] Last Admin: 11/11/16 06:02 Dose: Not Given Ondansetron HCl (Zofran Injection) 4 mg IVPB Q6H PRN PRN Reason: NAUSEA Ramipril (Altace -) 2.5 mg PO DAILY [facility] Last Admin: 11/11/16 11:04 Dose: 2.5 mg Temazepam (Restoril -) 15 mg PO HS [facility] Last Admin: 11/10/16 21:55 Dose: 15 mg Thiamine HCl (Vitamin B1 Injection -) 200 mg IVPB DAILY [facility] Last Admin: 11/11/16 11:04 Dose: 200 mg Assessment/Plan (1) Obstructive hydrocephalus Doubt being the cause of the mental status change She is of normal mentation today probably form the steroids. (2) Dehydration Assessment/Plan: Code(s): E86.0 - DEHYDRATION (3) Failure to thrive Assessment/Plan: -megace Code(s): [id number] - Qualifiers: Failure to thrive age range: in adult Qualified Code(s): R62.7 - Adult failure to thrive (4) Lung cancer metastatic to bone Assessment/Plan: Code(s): C34.90 - MALIGNANT NEOPLASM OF UNSP PART OF UNSP BRONCHUS OR LUNG C79.51 - SECONDARY MALIGNANT NEOPLASM OF BONE (5) HTN (hypertension) Assessment/Plan: -continue ramipril Code(s): I10 - ESSENTIAL (PRIMARY) HYPERTENSION (6) AMS Doubt bacterial meningtis for now till LP is done cont ABX Stop Lovonox in preperation for LP tomorrow. Cont Dexamethasone
[2016-11-11] MEDS ORDERED: DEXAMETHASONE SOD PHOSPHATE 10 MG/1 ML VIAL IVPB ONE (15:23)
[2016-11-11] MEDS ORDERED: DEXAMETHASONE SOD PHOSPHATE 4 MG/1 ML VIAL IVPB ONE (15:45)
--- NOTE | 2016-11-11 17:00 | CONS ---
DATE OF CONSULTATION: 11/11/2016 CHIEF COMPLAINT: Lethargy/altered mental status. 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 The patient had been somewhat more awake since admission. Currently, she denies any headache or nausea vomiting. She denies any fever, even though she is a poor historian. She has a history of adenocarcinoma of lung, metastasis to her axial skeleton, by report. She has no other significant complaint at this time and has no witnessed seizure activity. Past medical history is significant for hypertension, metastatic lung cancer, hypothyroidism, diabetes. Current medications include Altace, ampicillin and ceftriaxone, Lovenox, Megace, Restoril, nystatin oral suspension, and thiamine. There is no known drug allergies. Family history is noncontributory. SOCIAL HISTORY: She does not work. She is retired. She lives at home with her family reportedly. She is a nonsmoker by her own report. Her review of systems is otherwise negative for other major cardiovascular, pulmonary, gastrointestinal, genitourinary, endocrinological, neurological, or psychological problem except for the above. PHYSICAL EXAMINATION: Vital Signs: Temperature is 98.3, blood pressure 159/88, with pulse rate 53, O2 saturation is 95% on room air. HEENT: Normocephalic, atraumatic. Neck: Supple, with no nuchal rigidity. Coronary: Regular rhythm. Lungs: Clear bilaterally. Abdomen: Benign. Extremities: No obvious signs of DVT. Neurologic: She is awake and easily arousable. She follows simple commands. She is oriented x1. Cranial nerves examination shows her to have generally nonfocal cranial nerves examination. Motor examination shows at least 4/5 strength in bilateral upper and lower extremities. Sensory examination intact to light touch. Deep tendon reflexes are 1+. There are no pathological lower tract signs. Her toes are equivocal. Gait is not tested, for safety reasons. Laboratory examination shows the white blood cell count to be 8800, initially was 8400. Platelet count is 201,000. INR is 1.08, and PTT is 30.8. Serum sodium is 135, potassium 3.7, BUN 11, creatinine 0.8 respectively. Urinalysis is negative except for 1+ glucose. Blood culture is negative. Urine culture is pending. CT scan of the head performed on November 06 demonstrated moderate cerebral atrophy with ex facto dilatation of the lateral and 3rd ventricles. There is mild dilatation of 4th ventricle as well. There periventricular small-vessel disease. There is no acute bleed or other acute ischemia noted. MRI of the brain performed November 08 demonstrated a moderate cerebral atrophy with mild to moderate dilatation of the lateral ventricle and 3rd bilateral ventricle. There is periventricular T2 hyperintensity. The cerebral aqueduct is patent. There is no acute ischemia on the diffuse-weighted images. There is no significant contrast enhancement. IMPRESSION: 1. Rule out carcinomatous meningitis versus bacterial/viral meningitis greater than normal pressure hydrocephalus. 2. Diabetes. 3. History of stage 4 adenocarcinoma of the lung. 4. Hypothyroidism. 5. Hypertension. RECOMMENDATIONS: The patient presented with 1+ week history of altered mental status by report. She did not have any seizure activity. There is no obvious neurological deficit on my examination today other than her generalized disorientation. If possible, a lumbar puncture should be contemplated to assess the CSF for any infectious process and cytology to r/o carcinomatous meningitis. Her ventricular size is somewhat enlarged, which is not significantly out of proportion with her generalized cerebral atrophy, however. Generally, neurosurgical intervention is not indicated for such minimal dilatation of the ventricular system, especially in a patient with stage 4 metastatic disease and potential confounding OCC MED PHYSICIAN involvement by neoplastic disease or any underlying infectious process. Further input will be available upon the availability of the CSF studies. The patient should continue to be followed and treated by the treating attending neurologist, Dr. Palmer. MAURICE SHAH M.D. [id number] MTDD
[2016-11-11] MEDS: TEMAZEPAM 15 MG CAPSULE PO SCH (21:11)
[2016-11-12] MEDS: NYSTATIN 500,000 UNITS/5 ML SUSPENSION PO SCH ×5 (00:08→23:21)
[2016-11-12] MEDS ORDERED: PT OWN MED DRAWER 7, Y5N ONE ×5 (02:59→21:23)
[2016-11-12] MEDS: AMPICILLIN - 2 GM in SODIUM CHLORIDE 100 ML IVPB SCH ×4 (03:01→20:39)
--- NOTE | 2016-11-12 08:58 | PN ---
Progress Note (short form) - Note Progress Note: NEUROSURGERY Sitting up in bed eating breakfast On iv abx for past 2 days per ID given recent chemo PE: T 98.4, VSS HEENT-NC/AT; Neck- supple; Cor- RR; Lungs- CTA B; Abd- benign; Ext- no sign of DVT Following commands; Awake, oriented x1-2; speech more fluent CN- intact; Motor- at least 4/5 B UE/LE; Sensation- grossly intact LT; DTR- 1+ and symmetric; toes equivocal Head CT- moderate cerebral atrophy with periventricular small vessel dz; mild ventricular dilatation of lateral & third > fourth ventricles; no acute bleed MRI with/without (5-4): moderate atrophy, mild-moderate dilatation of third and lateral > fourth ventricles; periventricular T2 hyperintensity most consistent with gliosis though a degree of transependymal CSF is possible; no acute ischemia 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
[2016-11-12] MEDS: D5-1/2NS+20 MEQ KCL - 1,000 ML IV SCH (10:06)
[2016-11-12] MEDS: CEFTRIAXONE 100 ML IVPB SCH ×2 (10:58→21:26)
[2016-11-12] MEDS: RAMIPRIL 2.5 MG CAPSULE (FP) PO SCH ×2 (12:05→15:28)
[2016-11-12] MEDS: THIAMINE HCL 200 MG/2 ML VIAL IVPB SCH ×2 (12:05→15:25)
[2016-11-12] MEDS: MEGESTROL ACETATE 40 MG TABLET PO SCH ×2 (12:05→21:25)
--- NOTE | 2016-11-12 12:16 | PN ---
Progress Note, Physician Chief Complaint: Ms Walter says she feels well. No cp, sob, n/v. Spoke with son and grandson, saying she is much improved today. Eating and talking, appears back to baseline. - Current Medication List Current Medications: Active Medications Potassium Chloride/Dextrose/Sod Cl (D5-1/2ns+20 Meq Kcl -) 1,000 mls @ 100 mls/ hr IV ASDIR [facility] Last Admin: 11/12/16 10:06 Dose: 100 mls/hr Ceftriaxone Sodium (Rocephin 2gm Ivpb (Pre-Docked)) 100 mls @ 200 mls/hr IVPB BID [facility] Last Admin: 11/12/16 10:58 Dose: 200 mls/hr Ampicillin Sodium 2 gm/ Sodium (Chloride) 100 mls @ 200 mls/hr IVPB Q6H-IV [facility] Last Admin: 11/12/16 10:06 Dose: 200 mls/hr Megestrol Acetate (Megace -) 40 mg PO BID [facility] Last Admin: 11/12/16 12:05 Dose: Not Given Nystatin (Nystatin Oral Suspension -) 500,000 units PO Q6HPO [facility] Last Admin: 11/12/16 12:06 Dose: Not Given Ondansetron HCl (Zofran Injection) 4 mg IVPB Q6H PRN PRN Reason: NAUSEA Ramipril (Altace -) 2.5 mg PO DAILY [facility] Last Admin: 11/12/16 12:05 Dose: Not Given Temazepam (Restoril -) 15 mg PO HS [facility] Last Admin: 11/11/16 21:11 Dose: 15 mg Thiamine HCl (Vitamin B1 Injection -) 200 mg IVPB DAILY [facility] Last Admin: 11/12/16 12:05 Dose: Not Given - Objective Vital Signs: Vital Signs Temperature 98.1 F 11/12/16 09:44 Pulse Rate 68 11/12/16 09:44 Respiratory Rate 18 11/12/16 09:44 Blood Pressure 155/92 11/12/16 09:44 O2 Sat by Pulse Oximetry (%) 96 11/11/16 21:00 Constitutional: Yes: Well Nourished, No Distress, Calm Cardiovascular: Yes: Regular Rate and Rhythm. No: Gallop, Murmur, Rub Respiratory: Yes: Regular, CTA Bilaterally. No: Rales, Rhonchi, Wheezes Gastrointestinal: Yes: Normal Bowel Sounds, Soft. No: Distention, Tenderness Extremities: Yes: WNL Edema: No Labs: CBC, BMP 11/10/16 06:40 11/10/16 06:40 INR, PTT INR 1.08 (0.82-1.09) 11/10/16 06:40 Problem List - Problems (1) Obstructive hydrocephalus Code(s): G91.1 - OBSTRUCTIVE HYDROCEPHALUS (2) Dehydration Code(s): E86.0 - DEHYDRATION (3) Failure to thrive Code(s): [id number] - Qualifiers: Failure to thrive age range: in adult Qualified Code(s): R62.7 - Adult failure to thrive (4) Lung cancer metastatic to bone Code(s): C34.90 - MALIGNANT NEOPLASM OF UNSP PART OF UNSP BRONCHUS OR LUNG C79.51 - SECONDARY MALIGNANT NEOPLASM OF BONE (5) HTN (hypertension) Code(s): I10 - ESSENTIAL (PRIMARY) HYPERTENSION (6) Headache Code(s): R51 - HEADACHE Qualifiers: Headache type: unspecified Headache chronicity pattern: unspecified pattern Intractability: not intractable Qualified Code(s): R51 - Headache (7) Metabolic encephalopathy Code(s): G93.41 - METABOLIC ENCEPHALOPATHY (8) UTI (urinary tract infection) due to Enterococcus Code(s): N39.0 - URINARY TRACT INFECTION, SITE NOT SPECIFIED B95.2 - ENTEROCOCCUS THE CAUSE OF DISEASES CLASSIFIED ELSEWHERE Assessment/Plan (1) Obstructive hydrocephalus -appreciate neurology and neurosurgery assistance -plan for LP today, send fluid off for cytology and check for meningitis (2) Dehydration Assessment/Plan: -continue IVF currently Code(s): E86.0 - DEHYDRATION (3) Failure to thrive Assessment/Plan: -megace started -continue diet and supplementations -PT consulted Code(s): [id number] - Qualifiers: Failure to thrive age range: in adult Qualified Code(s): R62.7 - Adult failure to thrive (4) Lung cancer metastatic to bone Assessment/Plan: -oncology consulted and case discussed -sending CSF to cytology Code(s): C34.90 - MALIGNANT NEOPLASM OF UNSP PART OF UNSP BRONCHUS OR LUNG C79.51 - SECONDARY MALIGNANT NEOPLASM OF BONE (5) HTN (hypertension) Assessment/Plan: -continue ramipril Code(s): I10 - ESSENTIAL (PRIMARY) HYPERTENSION (6) Headache Assessment/Plan: -resolved Code(s): R51 - HEADACHE Qualifiers: Headache type: unspecified Headache chronicity pattern: unspecified pattern Intractability: not intractable Qualified Code(s): R51 - Headache (6) Metabolic encephalopathy -secondary to UTI -improving with treatment -appears at baseline (7) UTI -growing enterococcus and second organism -ID following and appreciate assistance -on rocephin and ampicillin
--- NOTE | 2016-11-12 12:34 | PN ---
Progress Note, Physician History of Present Illness: Today pt is awake and alert Offers no complaints Denies pain when questioned Afebrile, WBC WNL - Current Medication List Current Medications: Active Medications Potassium Chloride/Dextrose/Sod Cl (D5-1/2ns+20 Meq Kcl -) 1,000 mls @ 100 mls/ hr IV ASDIR [facility] Last Admin: 11/12/16 10:06 Dose: 100 mls/hr Ceftriaxone Sodium (Rocephin 2gm Ivpb (Pre-Docked)) 100 mls @ 200 mls/hr IVPB BID [facility] Last Admin: 11/12/16 10:58 Dose: 200 mls/hr Ampicillin Sodium 2 gm/ Sodium (Chloride) 100 mls @ 200 mls/hr IVPB Q6H-IV [facility] Last Admin: 11/12/16 10:06 Dose: 200 mls/hr Megestrol Acetate (Megace -) 40 mg PO BID [facility] Last Admin: 11/12/16 12:05 Dose: Not Given Nystatin (Nystatin Oral Suspension -) 500,000 units PO Q6HPO [facility] Last Admin: 11/12/16 12:06 Dose: Not Given Ondansetron HCl (Zofran Injection) 4 mg IVPB Q6H PRN PRN Reason: NAUSEA Ramipril (Altace -) 2.5 mg PO DAILY [facility] Last Admin: 11/12/16 12:05 Dose: Not Given Temazepam (Restoril -) 15 mg PO HS [facility] Last Admin: 11/11/16 21:11 Dose: 15 mg Thiamine HCl (Vitamin B1 Injection -) 200 mg IVPB DAILY [facility] Last Admin: 11/12/16 12:05 Dose: Not Given - Objective Vital Signs: Vital Signs Temperature 98.1 F 11/12/16 09:44 Pulse Rate 68 11/12/16 09:44 Respiratory Rate 18 11/12/16 09:44 Blood Pressure 155/92 11/12/16 09:44 O2 Sat by Pulse Oximetry (%) 96 11/11/16 21:00 Constitutional: Yes: No Distress Eyes: Yes: Conjunctiva Clear Cardiovascular: Yes: Regular Rate and Rhythm, S1, S2 Respiratory: Yes: CTA Bilaterally, Diminished Gastrointestinal: Yes: Normal Bowel Sounds, Soft. No: Tenderness Edema: No Labs: CBC, BMP 11/10/16 06:40 11/10/16 06:40 INR, PTT INR 1.08 (0.82-1.09) 11/10/16 06:40 Assessment/Plan Altered mental status- resolved Possible toxic metabolic encephalopathy Metastatic ca Hydrocephalus Chronic cholecystitis Await c/s Continue ceftriaxone/ ampicillin
[2016-11-12 14:24] LABS: GLUCOSE,CSF 8 mg/dL (50-80)
[2016-11-12 15:31] LABS: CSF APPEARANCE CLEAR; CSF COLOR COLORLESS; CSF RBC 0 /mm3
[2016-11-12] MEDS: TEMAZEPAM 15 MG CAPSULE PO SCH (21:25)
--- NOTE | 2016-11-12 21:42 | PN ---
Progress Note (short form) - Note Progress Note: patient seen and examined alert but confused more verbal Last Vital Signs Temp Pulse Resp BP Pulse Ox 98.2 F 70 18 143/65 94 L 11/12/16 19:18 11/12/16 19:18 11/12/16 19:18 11/12/16 19:18 11/12/16 09:00 Cor: RSR, No murmurs, No gallops Lungs: Clear to P&A Abd: Soft, Normal bowel sounds, No organomegaly Ext:No significant edema Abnormal Lab Results 11/12/16 13:00 CSF Glucose 8 L CSF Total Protein 86 H Active Medications Generic Name Dose Route Start Last Admin Trade Name Freq PRN Reason Stop Dose Admin Potassium Chloride/Dextrose/Sod Cl 1,000 mls @ 100 mls/hr 11/07/16 06:15 10:06 D5-1/2ns+20 Meq Kcl - IV 100 mls/hr ASDIR YUE Administration Ceftriaxone Sodium 100 mls @ 200 mls/hr 11/10/16 11:30 11/12/16 21:26 Rocephin 2gm Ivpb (Pre-Docked) IVPB 200 mls/hr BID YUE Administration Ampicillin Sodium 2 gm/ Sodium 100 mls @ 200 mls/hr 11/10/16 11:45 11/12/16 20: 39 Chloride IVPB 200 mls/hr Q6H-IV YUE Administration Megestrol Acetate 40 mg 11/07/16 22:00 11/12/16 21:25 Megace - PO 40 mg BID YUE Administration Nystatin 500,000 units 11/09/16 00:00 11/12/16 17:49 Nystatin Oral Suspension - PO 500,000 units Q6HPO YUE Administration Ondansetron HCl 4 mg 11/07/16 06:07 Zofran Injection IVPB Q6H PRN NAUSEA Ramipril 2.5 mg 11/08/16 10:00 11/12/16 15:28 Altace - PO 2.5 mg DAILY YUE Administration Temazepam 15 mg 11/08/16 22:00 11/12/16 21:25 Restoril - PO 15 mg HS YUE Administration Thiamine HCl 200 mg 11/09/16 18:45 11/12/16 15:25 Vitamin B1 Injection - IVPB 200 mg DAILY YUE Administration 71 y/o female with metastatic lung cancer, adeno ca had been on carbo/alimta and more recently, tarceva, comes in with headache and failure to thrive concerning for progressive disease ?? paraneoplastic phenomenon ? leptomeningeal disease mri brain --?? hydrocephalus s/p LP today ---f/u cytology will check mri spine /? rad-onc consult
[2016-11-13] MEDS: D5-1/2NS+20 MEQ KCL - 1,000 ML IV SCH (00:53)
[2016-11-13] MEDS ORDERED: PT OWN MED DRAWER 7, Y5N ONE ×4 (02:20→14:34)
[2016-11-13] MEDS: AMPICILLIN - 2 GM in SODIUM CHLORIDE 100 ML IVPB SCH ×3 (02:22→14:35)
[2016-11-13] MEDS: NYSTATIN 500,000 UNITS/5 ML SUSPENSION PO SCH ×2 (05:23→12:39)
--- NOTE | 2016-11-13 07:57 | PN ---
Progress Note (short form) - Note Progress Note: NEUROSURGERY Sitting up in bed Denies H/A, N/V, Sz On iv abx for past 3 days per ID PE: T 98.2, VSS HEENT-NC/AT; Neck- supple; Cor- RR; Lungs- CTA B; Abd- benign; Ext- no sign of DVT Following commands; Awake, oriented x1-2; speech fluent; decent comprehension CN- intact; Motor- at least 4+/5 B UE/LE; Sensation- grossly intact LT; DTR- 1+ and symmetric; toes equivocal MRI with/without (5-4): moderate atrophy, mild-moderate dilatation of third and lateral > fourth ventricles; periventricular T2 hyperintensity most consistent with gliosis though a degree of transependymal CSF is possible; no acute ischemia CSF glucose 8; protein 86; gram stain negative; culture pending; cytology pending still Urine culture- enterococcus 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 though culture may may not grow as pt has been on iv abx Pt is awake/alert and overall improved No neurosurgical intervention indicated
[2016-11-13 08:00] LABS: BASOPHIL 0.2 % (0-2.0); EOSINOPHIL 0.3 % (0-4.5); MCH 29.7 pg (25.7-33.7); MCHC 34.6 g/dl (32.0-36.0); MEAN CELL VOLUME 85.7 fl (80-96); MEAN PLT VOLUME 8.4 fl (7.5-11.1); NEUTROPHILS 76.9 % (42.8-82.8); PLATELET COUNT 194 K/MM3 (134-434); RDW 14.3 % (11.6-15.6); WHITE BLOOD COUNT 9.9 K/mm3 (4.0-10.0)
[2016-11-13] MEDS: MEGESTROL ACETATE 40 MG TABLET PO SCH (09:57)
[2016-11-13] MEDS: THIAMINE HCL 200 MG/2 ML VIAL IVPB SCH (09:57)
[2016-11-13] MEDS: RAMIPRIL 2.5 MG CAPSULE (FP) PO SCH (09:57)
[2016-11-13] MEDS: CEFTRIAXONE 100 ML IVPB SCH (09:58)
[2016-11-13 12:25] LABS: CALCIUM 8.6 mg/dL (8.5-10.1); COCKROFT - GAULT 51.051; MAGNESIUM 1.9 mg/dL (1.8-2.4); PHOSPHOROUS 2.8 mg/dL (2.5-4.9)
--- NOTE | 2016-11-13 14:00 | PN ---
Progress Note, Physician Chief Complaint: Ms Walter says she feels great today. No cp, sob, n/v. - Current Medication List Current Medications: Active Medications Potassium Chloride/Dextrose/Sod Cl (D5-1/2ns+20 Meq Kcl -) 1,000 mls @ 100 mls/ hr IV ASDIR [facility] Last Admin: 11/13/16 00:53 Dose: 100 mls/hr Ceftriaxone Sodium (Rocephin 2gm Ivpb (Pre-Docked)) 100 mls @ 200 mls/hr IVPB BID [facility] Last Admin: 11/13/16 09:58 Dose: 200 mls/hr Ampicillin Sodium 2 gm/ Sodium (Chloride) 100 mls @ 200 mls/hr IVPB Q6H-IV [facility] Last Admin: 11/13/16 08:37 Dose: 200 mls/hr Megestrol Acetate (Megace -) 40 mg PO BID [facility] Last Admin: 11/13/16 09:57 Dose: 40 mg Nystatin (Nystatin Oral Suspension -) 500,000 units PO Q6HPO [facility] Last Admin: 11/13/16 12:39 Dose: 500,000 units Ondansetron HCl (Zofran Injection) 4 mg IVPB Q6H PRN PRN Reason: NAUSEA Ramipril (Altace -) 2.5 mg PO DAILY [facility] Last Admin: 11/13/16 09:57 Dose: 2.5 mg Temazepam (Restoril -) 15 mg PO HS [facility] Last Admin: 11/12/16 21:25 Dose: 15 mg Thiamine HCl (Vitamin B1 Injection -) 200 mg IVPB DAILY [facility] Last Admin: 11/13/16 09:57 Dose: 200 mg - Objective Vital Signs: Vital Signs Temperature 98.0 F 11/13/16 13:48 Pulse Rate 83 11/13/16 13:48 Respiratory Rate 18 11/13/16 09:56 Blood Pressure 153/76 11/13/16 13:48 O2 Sat by Pulse Oximetry (%) 94 L 11/12/16 09:00 Constitutional: Yes: Well Nourished, No Distress, Calm Cardiovascular: Yes: Regular Rate and Rhythm. No: Gallop, Murmur, Rub Respiratory: Yes: Regular, CTA Bilaterally. No: Rales, Rhonchi, Wheezes Gastrointestinal: Yes: Normal Bowel Sounds, Soft. No: Distention, Tenderness Extremities: Yes: WNL Edema: No Labs: CBC, BMP 11/13/16 07:05 11/13/16 07:05 INR, PTT INR 1.08 (0.82-1.09) 11/10/16 06:40 Problem List - Problems (1) Obstructive hydrocephalus Code(s): G91.1 - OBSTRUCTIVE HYDROCEPHALUS (2) Dehydration Code(s): E86.0 - DEHYDRATION (3) Failure to thrive Code(s): [id number] - Qualifiers: Failure to thrive age range: in adult Qualified Code(s): R62.7 - Adult failure to thrive (4) Lung cancer metastatic to bone Code(s): C34.90 - MALIGNANT NEOPLASM OF UNSP PART OF UNSP BRONCHUS OR LUNG C79.51 - SECONDARY MALIGNANT NEOPLASM OF BONE (5) HTN (hypertension) Code(s): I10 - ESSENTIAL (PRIMARY) HYPERTENSION (6) Headache Code(s): R51 - HEADACHE Qualifiers: Headache type: unspecified Headache chronicity pattern: unspecified pattern Intractability: not intractable Qualified Code(s): R51 - Headache (7) Metabolic encephalopathy Code(s): G93.41 - METABOLIC ENCEPHALOPATHY (8) UTI (urinary tract infection) due to Enterococcus Code(s): N39.0 - URINARY TRACT INFECTION, SITE NOT SPECIFIED B95.2 - ENTEROCOCCUS THE CAUSE OF DISEASES CLASSIFIED ELSEWHERE Assessment/Plan (1) Obstructive hydrocephalus -appreciate neurology and neurosurgery assistance -LP performed -prelim read positive -oncology following -plan for MRI and discussion of further treatment options including RT (2) Dehydration Assessment/Plan: -continue IVF currently Code(s): E86.0 - DEHYDRATION (3) Failure to thrive Assessment/Plan: -megace started -continue diet and supplementations -PT consulted Code(s): [id number] - Qualifiers: Failure to thrive age range: in adult Qualified Code(s): R62.7 - Adult failure to thrive (4) Lung cancer metastatic to bone Assessment/Plan: -as above Code(s): C34.90 - MALIGNANT NEOPLASM OF UNSP PART OF UNSP BRONCHUS OR LUNG C79.51 - SECONDARY MALIGNANT NEOPLASM OF BONE (5) HTN (hypertension) Assessment/Plan: -continue ramipril Code(s): I10 - ESSENTIAL (PRIMARY) HYPERTENSION (6) Headache Assessment/Plan: -resolved Code(s): R51 - HEADACHE Qualifiers: Headache type: unspecified Headache chronicity pattern: unspecified pattern Intractability: not intractable Qualified Code(s): R51 - Headache (6) Metabolic encephalopathy -secondary to UTI -resolved (7) UTI -ID following and managing antibiotics
--- NOTE | 2016-11-13 14:08 | PN ---
Progress Note (short form) - Note Progress Note: Patient seen and examined Has altered mental status= Year-2018 President - did not know 100-7= 100 Place - [place] Denies headaches. or pain. No SOB or difficulty breathing No GI symptoms of nausea, emesis, diarrhea , constipation Denies back or bone pain nausea , Last Vital Signs Temp Pulse Resp BP Pulse Ox 98.0 F 83 18 153/76 94 L 11/13/16 13:48 11/13/16 13:48 11/13/16 09:56 11/13/16 13:48 11/12/16 09:00 HEENT: JOSE ROBERTO, EOM Intact Oropharynx: No thrush, No mucositis Neck: Supple Nodes: Without adenopathy Breasts: Without masses Cor: RSR, No murmurs, No gallops Lungs:diminished breath sounds Abd: Soft, Normal bowel sounds, No organomegaly Ext:No significant edema Skin: No rashes, Integument intact CBC, BMP 11/13/16 07:05 11/13/16 07:05 Current Medications Generic Name Dose Route Start Last Admin Trade Name Freq PRN Reason Stop Dose Admin Potassium Chloride/Dextrose/Sod Cl 1,000 mls @ 100 mls/hr 11/07/16 06:15 00:53 D5-1/2ns+20 Meq Kcl - IV 100 mls/hr ASDIR YUE Administration Ceftriaxone Sodium 100 mls @ 200 mls/hr 11/10/16 11:30 11/13/16 09:58 Rocephin 2gm Ivpb (Pre-Docked) IVPB 200 mls/hr BID YUE Administration Ampicillin Sodium 2 gm/ Sodium 100 mls @ 200 mls/hr 11/10/16 11:45 11/13/16 08: 37 Chloride IVPB 200 mls/hr Q6H-IV YUE Administration Megestrol Acetate 40 mg 11/07/16 22:00 11/13/16 09:57 Megace - PO 40 mg BID YUE Administration Nystatin 500,000 units 11/09/16 00:00 11/13/16 12:39 Nystatin Oral Suspension - PO 500,000 units Q6HPO YUE Administration Ondansetron HCl 4 mg 11/07/16 06:07 Zofran Injection IVPB Q6H PRN NAUSEA Ramipril 2.5 mg 11/08/16 10:00 11/13/16 09:57 Altace - PO 2.5 mg DAILY YUE Administration Temazepam 15 mg 11/08/16 22:00 11/12/16 21:25 Restoril - PO 15 mg HS YUE Administration Thiamine HCl 200 mg 11/09/16 18:45 11/13/16 09:57 Vitamin B1 Injection - IVPB 200 mg DAILY YUE Administration Impression: Adenoca of LUng Altered mental status, L.P consistent with meningitis, cytology pending On antibiotics such that cultures May be negative, ?NPH Plan: Await CSF cytology MRI of spine ?? DVT prophylaxis _NS and neuro input Hold megace- thrombogenic potential
--- NOTE | 2016-11-13 15:20 | PN ---
Progress Note (short form) - Note Progress Note: Spoke with path CSF cytology--positive To get RT consult . To have N.S. Input. For MRI of Spine. ?? RT ?? ommaya and I.T therapy.
--- NOTE | 2016-11-13 19:18 | PN ---
Progress Note (short form) - Note Progress Note: Radiation Oncology Pt seen/examined, chart/films reviewed, full consult to follow. 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 Per chart, has clinically improved. Will d/w Dr. Blankenship options i.e. WBRT, IT chemo, palliative care.
--- NOTE | 2016-11-13 19:40 | PN ---
Progress Note, Physician History of Present Illness: Awake, alert Offers no complaints Afebrile, WBC normal LP negative for meningitits - Current Medication List Current Medications: Active Medications Ceftriaxone Sodium (Rocephin 1gm Ivpb (Pre-Docked)) 1 gm IVPB DAILY [facility] Potassium Chloride/Dextrose/Sod Cl (D5-1/2ns+20 Meq Kcl -) 1,000 mls @ 100 mls/ hr IV ASDIR [facility] Last Admin: 11/13/16 00:53 Dose: 100 mls/hr Nystatin (Nystatin Oral Suspension -) 500,000 units PO Q6HPO [facility] Last Admin: 11/13/16 12:39 Dose: 500,000 units Ondansetron HCl (Zofran Injection) 4 mg IVPB Q6H PRN PRN Reason: NAUSEA Ramipril (Altace -) 2.5 mg PO DAILY [facility] Last Admin: 11/13/16 09:57 Dose: 2.5 mg Temazepam (Restoril -) 15 mg PO HS [facility] Last Admin: 11/12/16 21:25 Dose: 15 mg Thiamine HCl (Vitamin B1 Injection -) 200 mg IVPB DAILY [facility] Last Admin: 11/13/16 09:57 Dose: 200 mg - Objective Vital Signs: Vital Signs Temperature 98.0 F 11/13/16 13:48 Pulse Rate 83 11/13/16 13:48 Respiratory Rate 18 11/13/16 09:56 Blood Pressure 153/76 11/13/16 13:48 O2 Sat by Pulse Oximetry (%) 94 L 11/12/16 09:00 Constitutional: Yes: No Distress Eyes: Yes: Conjunctiva Clear Cardiovascular: Yes: Regular Rate and Rhythm, S1, S2 Respiratory: Yes: CTA Bilaterally Gastrointestinal: Yes: Normal Bowel Sounds, Soft Labs: CBC, BMP 11/13/16 07:05 11/13/16 07:05 INR, PTT INR 1.08 (0.82-1.09) 11/10/16 06:40 Assessment/Plan Altered mental status- resolved Possible toxic metabolic encephalopathy-resolved Metastatic ca Hydrocephalus Chronic cholecystitis Continue ceftriaxone @ 1gm q24h D/C ampicillin
[2016-11-13] MEDS: TEMAZEPAM 15 MG CAPSULE PO SCH (22:23)
[2016-11-14] MEDS: NYSTATIN 500,000 UNITS/5 ML SUSPENSION PO SCH ×5 (00:02→19:37)
[2016-11-14 07:43] LABS: BASOPHIL 0.6 % (0-2.0); EOSINOPHIL 0.8 % (0-4.5); MCH 29.8 pg (25.7-33.7); MCHC 34.4 g/dl (32.0-36.0); MEAN CELL VOLUME 86.7 fl (80-96); MEAN PLT VOLUME 7.9 fl (7.5-11.1); NEUTROPHILS 79.9 % (42.8-82.8); PLATELET COUNT 182 K/MM3 (134-434); RDW 14.4 % (11.6-15.6); WHITE BLOOD COUNT 9.2 K/mm3 (4.0-10.0)
--- NOTE | 2016-11-14 08:00 | PATH ---
Cytology Non-Gynecological Report Patient Name: ISABEL STONE Med. Rec. #: [id number] /Age/Gender: 1945 (Age: 71) / F Account: [id number] Location: [address] [place] [address]/[facility] Taken: 11/12/2016 Received: 11/13/2016 Reported: 11/14/2016 Physicians: Ned Vásquez M.D. Specimen(s) Received CEREBRAL SPINAL FLUID Clinical History History of lung adenocarcinoma; r/o leptomeningeal disease Final Diagnosis CEREBROSPINAL FLUID: SATISFACTORY FOR EVALUATION. POSITIVE FOR MALIGNANT CELLS. CONSISTENT WITH INVOLVEMENT BY ADENOCARCINOMA (SEE COMMENT). Comment: History of metastatic lung adenocarcinoma is noted. Scattered epithelial cells with irregular nuclei and vacuolated cytoplasm identified. Ae1/Ae3 keratin immunohistochemical stain performed and interpreted at [facility] highlights epithelial adenocarcinoma cells. Clinical and imaging correlations are suggested. The case was preliminary discussed with Dr. Blankenship and Dr. Soria on 11/13/16. Electronically Signed Abel Lamb M.D. Gross Description Received is 4 cc of clear fluid fresh. Four Pap stained cytofunnel slides are made. Three additional Pap stained cytofunnel slides, one Ae1/Ae3 stained cytofunnel slide and three smear slides are also made.
[2016-11-14 08:47] LABS: CALCIUM 8.6 mg/dL (8.5-10.1); COCKROFT - GAULT 51.051; MAGNESIUM 1.7 mg/dL (1.8-2.4)
--- NOTE | 2016-11-14 09:13 | PN ---
Progress Note (short form) - Note Progress Note: NEUROSURGERY Doing well Denies H/A, N/V, Sz On iv abx for past 3 days per ID PE: T 98.2, VSS HEENT-NC/AT; Neck- supple; Cor- RR; Lungs- CTA B; Abd- benign; Ext- no sign of DVT Following commands; Awake, oriented x1-2; speech fluent; decent comprehension CN- intact; Motor- at least 4+/5 B UE/LE; Sensation- grossly intact LT; DTR- 1+ and symmetric; toes equivocal MRI with/without (5-4): moderate atrophy, mild-moderate dilatation of third and lateral > fourth ventricles; periventricular T2 hyperintensity most consistent with gliosis though a degree of transependymal CSF is possible; no acute ischemia CSF glucose 8; protein 86; 0 WBC, 0 RBC, gram stain negative; culture negative to date 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 though culture may may not grow as pt has been on iv abx Pt has improved clinically No neurosurgical intervention indicated Chemo/WBXRT per oncology/rad onc team
[2016-11-14] MEDS ORDERED: CEFTRIAXONE 1 GM in DEXTROSE 5%-WATER - 100 ML IVPB SCH (10:00)
[2016-11-14] MEDS ORDERED: PT OWN MED DRAWER 7, Y5N ONE (10:06)
[2016-11-14] MEDS: RAMIPRIL 2.5 MG CAPSULE (FP) PO SCH (10:08)
[2016-11-14] MEDS: THIAMINE HCL 200 MG/2 ML VIAL IVPB SCH (10:08)
[2016-11-14] MEDS: D5-1/2NS+20 MEQ KCL - 1,000 ML IV SCH (10:09)
[2016-11-14] MEDS: cefTRIAXone 1 GM/50 ML BAG (PRE-DOCKED) IVPB SCH (10:09)
--- NOTE | 2016-11-14 14:49 | PN ---
Progress Note, Physician Chief Complaint: Ms Walter says she feels great today. No cp, sob, n/v. Asking when she will be able to go home. - Current Medication List Current Medications: Active Medications Ceftriaxone Sodium (Rocephin 1gm Ivpb (Pre-Docked)) 1 gm IVPB DAILY [facility] Last Admin: 11/14/16 10:09 Dose: 1 gm Potassium Chloride/Dextrose/Sod Cl (D5-1/2ns+20 Meq Kcl -) 1,000 mls @ 100 mls/ hr IV ASDIR [facility] Last Admin: 11/14/16 10:09 Dose: 100 mls/hr Lorazepam (Ativan Injection -) 1 mg IVPUSH ONCE ONE Stop: 11/14/16 11:03 Nystatin (Nystatin Oral Suspension -) 500,000 units PO Q6HPO [facility] Last Admin: 11/14/16 12:39 Dose: Not Given Ondansetron HCl (Zofran Injection) 4 mg IVPB Q6H PRN PRN Reason: NAUSEA Ramipril (Altace -) 2.5 mg PO DAILY [facility] Last Admin: 11/14/16 10:08 Dose: 2.5 mg Temazepam (Restoril -) 15 mg PO HS [facility] Last Admin: 11/13/16 22:23 Dose: 15 mg Thiamine HCl (Vitamin B1 Injection -) 200 mg IVPB DAILY [facility] Last Admin: 11/14/16 10:08 Dose: 200 mg - Objective Vital Signs: Vital Signs Temperature 98.3 F 11/14/16 13:52 Pulse Rate 82 11/14/16 13:52 Respiratory Rate 20 11/14/16 09:00 Blood Pressure 135/60 11/14/16 13:52 O2 Sat by Pulse Oximetry (%) 94 L 11/12/16 09:00 Constitutional: Yes: Well Nourished, No Distress, Calm Cardiovascular: Yes: Regular Rate and Rhythm. No: Gallop, Murmur, Rub Respiratory: Yes: Regular, CTA Bilaterally. No: Rales, Rhonchi, Wheezes Gastrointestinal: Yes: Normal Bowel Sounds, Soft. No: Distention, Tenderness Extremities: Yes: WNL Edema: No Labs: CBC, BMP 11/14/16 06:10 11/14/16 06:10 INR, PTT INR 1.08 (0.82-1.09) 11/10/16 06:40 Problem List - Problems (1) Obstructive hydrocephalus Code(s): G91.1 - OBSTRUCTIVE HYDROCEPHALUS (2) Dehydration Code(s): E86.0 - DEHYDRATION (3) Failure to thrive Code(s): IUP1338 - Qualifiers: Failure to thrive age range: in adult Qualified Code(s): R62.7 - Adult failure to thrive (4) Lung cancer metastatic to bone Code(s): C34.90 - MALIGNANT NEOPLASM OF UNSP PART OF UNSP BRONCHUS OR LUNG C79.51 - SECONDARY MALIGNANT NEOPLASM OF BONE (5) HTN (hypertension) Code(s): I10 - ESSENTIAL (PRIMARY) HYPERTENSION (6) Headache Code(s): R51 - HEADACHE Qualifiers: Headache type: unspecified Headache chronicity pattern: unspecified pattern Intractability: not intractable Qualified Code(s): R51 - Headache (7) Metabolic encephalopathy Code(s): G93.41 - METABOLIC ENCEPHALOPATHY (8) UTI (urinary tract infection) due to Enterococcus Code(s): N39.0 - URINARY TRACT INFECTION, SITE NOT SPECIFIED B95.2 - ENTEROCOCCUS THE CAUSE OF DISEASES CLASSIFIED ELSEWHERE Assessment/Plan (1) Obstructive hydrocephalus secondary to metastasis -appreciate neurology and neurosurgery assistance -LP performed -prelim read positive -radiation oncology consulted, recommending holding on palliative chemotherapy until more symptomatic -defer to oncology for further treatment (2) Dehydration Assessment/Plan: -continue IVF currently -plan to stop tomorrow Code(s): E86.0 - DEHYDRATION (3) Failure to thrive Assessment/Plan: -megace started -continue diet and supplementations -PT consulted and following -nutritional status improving Code(s): [id number] - Qualifiers: Failure to thrive age range: in adult Qualified Code(s): R62.7 - Adult failure to thrive (4) Lung cancer metastatic to bone Assessment/Plan: -as above Code(s): C34.90 - MALIGNANT NEOPLASM OF UNSP PART OF UNSP BRONCHUS OR LUNG C79.51 - SECONDARY MALIGNANT NEOPLASM OF BONE (5) HTN (hypertension) Assessment/Plan: -continue ramipril Code(s): I10 - ESSENTIAL (PRIMARY) HYPERTENSION (6) Headache Assessment/Plan: -resolved Code(s): R51 - HEADACHE Qualifiers: Headache type: unspecified Headache chronicity pattern: unspecified pattern Intractability: not intractable Qualified Code(s): R51 - Headache (6) Metabolic encephalopathy -secondary to UTI -resolved (7) UTI -ID following and managing antibiotics
--- NOTE | 2016-11-14 15:32 | CONS ---
DATE OF CONSULTATION: 11/13/2016 REFERRING PHYSICIAN: Karlos Blankenship MD REASON FOR CONSULTATION: Altered mental status, secondary to meningeal carcinomatosis. 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 She completed 4 cycles of carboplatin and Alimta followed by Tararchieva for a year and a half. She was having headaches and had MRI, which was unrevealing. She was admitted with a 1 week history of lethargy, headaches and failure to thrive. She was started on empiric antibiotics and received [address] of the head showed ventricular dilatation and MRI of the brain with contrast confirmed mild dilatation of the lateral and 3rd ventricles with associated periventricular edema consistent with obstructive hydrocephalus. There is minimal to mild dilatation of the 4th ventricle and the cerebral aqueducts appear patent. No evidence of infarction. She underwent lumbar puncture, which demonstrated malignant cells consistent with adenocarcinoma. An MRI of the spine is pending. According to the chart, her mental status has been improving. Patient was nonverbal on presentation. She is followed by the ID, Oncology, Neurology and Neurosurgical services. She denies headache, dizziness, blurry or double vision, numbness, tingling, or weakness. She reports fair appetite. Denies history of radiation therapy. PAST MEDICAL HISTORY: Hypertension, diabetes mellitus, hypothyroidism, hysterectomy. ALLERGIES: No known drug allergies. CURRENT MEDICATIONS: Ramipril, ceftriaxone, temazepam, Nystatin suspension, thiamine. FAMILY HISTORY: Denies history of malignancy. SOCIAL HISTORY: She lives with her family. She is a former smoker. REVIEW OF SYSTEMS: As noted. PHYSICAL EXAMINATION: General: She is in no acute distress, easily arousable, but sometimes drifts off during conversation. Vitals: Temperature 98.0, blood pressure 153/76, pulse 83, respiratory rate 20 , SFO2 96% room air. HEENT: Normocephalic. Moist mucous membranes. Anicteric sclera. Clear oral cavity. Neck: No adenopathy. Chest: Decreased breath sounds. No axillary adenopathy. Breasts: Soft without mass. Abdomen: Soft, nontender, nondistended. Extremities: No peripheral edema. Neurologic: Oriented to hospital, her name, age, but not year or month. Cranial nerves II through XII are intact. Sensation to light touch is intact. No gross motor deficit. Coordination normal. LABORATORY DATA: WBC 9.9, hemoglobin 12.6, platelet count 194,000. Electrolytes within normal limits. BUN 20, creatinine 1.0, calcium 8.6. CSF: Glucose 8, protein 86. RADIOLOGIC DATA: CT head and MRI of the brain as noted. PATHOLOGIC DATA: CSF cytology positive for malignant cells consistent with involvement by adenocarcinoma. IMPRESSION: A 71-year-old female with EGFR positive stage IV pulmonary adenocarcinoma associated with skeletal metastases, status post chemotherapy on Tarceva with progressive disease involving the VAULT PERSON with meningeal carcinomatosis and change in mental status. CSF cytology is positive. Mental status has improved and she is non focal. MRI of the spine is pending. A role for radiation therapy to the brain and/or spine in the setting leptomeningeal disease would be based on the focality and severity of symptoms with treatment typically indicated for palliation of bulky sites of LMD, to identifiable areas of CSF obstruction, for pain and focal neurologic deficitis, or neurologic progression. Intrathecal chemotherapy is being considered and would be a reasonable initial option if she is a candidate. Given that mental status has improved and there are no clear focus, I would probably favor reserving palliative radiation therapy for clinical progression or if the MRI of the spine demonstrated sites of focal disease so that the field can be limited to reduce toxicity. Will discuss with med onc. Thank you for allowing me to participate in this patient's care. cc: MD AAKASH Chavarria M.D. /[id number] MTDD
[2016-11-14] MEDS ORDERED: LORAZEPAM CARPU-JECT 2 MG/ML DISP.SYRIN IVPUSH ONE (19:30)
--- NOTE | 2016-11-14 20:04 | PN ---
Progress Note (short form) - Note Progress Note: NEUROLOGY FOLLOW-UP: Events reviewed, patient examined. LP by Dr. Fox is greatly appreciated. Remarkable CSF reviewed and discussed with Dr. Soria. 0 WBC, 0 RBC Glucose = 8 mg% Protein= 86 mg% ONLY Consistent with carcinomatous meningitis. In fact, cytospin shows large, atypical cells. Histocytology pending. Pt is more awake and alert. Confused. Follows simple commands. Gibberish speech. Neck supple. Kernig's neg. Moves R>L. B/L Babinskis. IMP: Carcinomatous meningitis. Suggest: Consider intrathecal methotrexate and systemic chemoRx that crosses the Blood brain barrier. Thank you very much, Michael Palmer MD
[2016-11-14] MEDS: MAGNESIUM OXIDE 400 MG TABLET (FP) PO SCH (21:31)
[2016-11-14] MEDS: TEMAZEPAM 15 MG CAPSULE PO SCH (21:31)
--- NOTE | 2016-11-15 00:01 | PN ---
Progress Note (short form) - Note Progress Note: patient seen and examined confused AFVSS Cor: RSR, No murmurs, No gallops Lungs: Clear to P&A Abd: Soft, Normal bowel sounds, No organomegaly Ext:No significant edema Abnormal Lab Results 11/14/16 06:10 Random Glucose 117 H Magnesium 1.7 L Home Medication List Medication Instructions Recorded Confirmed Type Atenolol 50 mg PO DAILY 11/07/16 11/07/16 History Oxycodone HCl 5 mg PO Q4HWA PRN 11/07/16 11/07/16 History Ramipril 2.5 mg PO DAILY 11/07/16 11/07/16 History Active Medications Generic Name Dose Route Start Last Admin Trade Name Freq PRN Reason Stop Dose Admin Ceftriaxone Sodium 1 gm 11/14/16 10:00 11/14/16 10:09 Rocephin 1gm Ivpb (Pre-Docked) IVPB 1 gm DAILY [facility] Administration Potassium Chloride/Dextrose/Sod Cl 1,000 mls @ 100 mls/hr 11/07/16 06:15 02:22 D5-1/2ns+20 Meq Kcl - IV 100 mls/hr ASDIR YUE Administration Magnesium Oxide 400 mg 11/14/16 22:00 11/14/16 21:31 Mag-Ox - PO 400 mg BID YUE Administration Nystatin 500,000 units 11/09/16 00:00 11/15/16 05:53 Nystatin Oral Suspension - PO Not Given Q6HPO YUE Ondansetron HCl 4 mg 11/07/16 06:07 Zofran Injection IVPB Q6H PRN NAUSEA Ramipril 2.5 mg 11/08/16 10:00 11/14/16 10:08 Altace - PO 2.5 mg DAILY [facility] Administration Temazepam 15 mg 11/08/16 22:00 11/14/16 21:31 Restoril - PO 15 mg HS [facility] Administration Thiamine HCl 200 mg 11/09/16 18:45 11/14/16 10:08 Vitamin B1 Injection - IVPB 200 mg DAILY [facility] Administration A/P 71 y/o female with metastatic lung cancer, adeno ca had been on carbo/alimta and more recently, tarceva, comes in with headache and failure to thrive concerning for progressive disease altered mental status due to leptomeningeal disease csf suggestive of leptomeningeal disease f/u MRI spine will discuss with rad-onc/neurosurgery based on MRI spine --? IT MTX , 3rd genertaion TKI
[2016-11-15] MEDS: NYSTATIN 500,000 UNITS/5 ML SUSPENSION PO SCH ×4 (00:21→17:56)
[2016-11-15] MEDS: D5-1/2NS+20 MEQ KCL - 1,000 ML IV SCH (02:22)
[2016-11-15 07:59] LABS: BASOPHIL 0.3 % (0-2.0); MCH 29.9 pg (25.7-33.7); MCHC 34.6 g/dl (32.0-36.0); MEAN CELL VOLUME 86.4 fl (80-96); MEAN PLT VOLUME 8.1 fl (7.5-11.1); NEUTROPHILS 75.3 % (42.8-82.8); PLATELET COUNT 184 K/MM3 (134-434); RDW 14.3 % (11.6-15.6); WHITE BLOOD COUNT 7.9 K/mm3 (4.0-10.0)
[2016-11-15 08:13] LABS: INR 1.13 (0.82-1.09); PROTHROMBIN TIME (PATIENT) 12.5 SEC (9.98-11.88)
[2016-11-15 08:16] LABS: ACTIVATED PTT 30.6 SECONDS (26.9-34.4)
[2016-11-15] MEDS ORDERED: PT OWN MED DRAWER 7, Y5N ONE (10:22)
[2016-11-15] MEDS: MAGNESIUM OXIDE 400 MG TABLET (FP) PO SCH ×2 (10:24→21:29)
[2016-11-15] MEDS: RAMIPRIL 2.5 MG CAPSULE (FP) PO SCH (10:24)
[2016-11-15] MEDS: THIAMINE HCL 200 MG/2 ML VIAL IVPB SCH (10:24)
[2016-11-15] MEDS: cefTRIAXone 1 GM/50 ML BAG (PRE-DOCKED) IVPB SCH (10:29)
--- NOTE | 2016-11-15 11:05 | PN ---
Progress Note, Physician Chief Complaint: Ms Walter says she feels fine. No cp, sob, n/v. - Current Medication List Current Medications: Active Medications Ceftriaxone Sodium (Rocephin 1gm Ivpb (Pre-Docked)) 1 gm IVPB DAILY [facility] Last Admin: 11/15/16 10:29 Dose: 1 gm Magnesium Oxide (Mag-Ox -) 400 mg PO BID [facility] Last Admin: 11/15/16 10:24 Dose: 400 mg Nystatin (Nystatin Oral Suspension -) 500,000 units PO Q6HPO [facility] Last Admin: 11/15/16 05:53 Dose: Not Given Ondansetron HCl (Zofran Injection) 4 mg IVPB Q6H PRN PRN Reason: NAUSEA Ramipril (Altace -) 2.5 mg PO DAILY [facility] Last Admin: 11/15/16 10:24 Dose: 2.5 mg Temazepam (Restoril -) 15 mg PO HS [facility] Last Admin: 11/14/16 21:31 Dose: 15 mg Thiamine HCl (Vitamin B1 Injection -) 200 mg IVPB DAILY [facility] Last Admin: 11/15/16 10:24 Dose: 200 mg - Objective Vital Signs: Vital Signs Temperature 98.8 F 11/15/16 05:46 Pulse Rate 79 11/15/16 05:46 Respiratory Rate 20 11/15/16 05:46 Blood Pressure 136/73 11/15/16 05:46 O2 Sat by Pulse Oximetry (%) 94 L 11/12/16 09:00 Constitutional: Yes: Well Nourished, No Distress, Calm Cardiovascular: Yes: Regular Rate and Rhythm. No: Gallop, Murmur, Rub Respiratory: Yes: Regular, CTA Bilaterally. No: Rales, Rhonchi, Wheezes Gastrointestinal: Yes: Normal Bowel Sounds, Soft. No: Distention, Tenderness Extremities: Yes: WNL Edema: No Labs: CBC, BMP 11/15/16 06:50 11/14/16 06:10 INR, PTT INR 1.13 (0.82-1.09) 11/15/16 06:45 Problem List - Problems (1) Obstructive hydrocephalus Code(s): G91.1 - OBSTRUCTIVE HYDROCEPHALUS (2) Dehydration Code(s): E86.0 - DEHYDRATION (3) Failure to thrive Code(s): [id number] - Qualifiers: Failure to thrive age range: in adult Qualified Code(s): R62.7 - Adult failure to thrive (4) Lung cancer metastatic to bone Code(s): C34.90 - MALIGNANT NEOPLASM OF UNSP PART OF UNSP BRONCHUS OR LUNG C79.51 - SECONDARY MALIGNANT NEOPLASM OF BONE (5) HTN (hypertension) Code(s): I10 - ESSENTIAL (PRIMARY) HYPERTENSION (6) Headache Code(s): R51 - HEADACHE Qualifiers: Headache type: unspecified Headache chronicity pattern: unspecified pattern Intractability: not intractable Qualified Code(s): R51 - Headache (7) Metabolic encephalopathy Code(s): G93.41 - METABOLIC ENCEPHALOPATHY (8) UTI (urinary tract infection) due to Enterococcus Code(s): N39.0 - URINARY TRACT INFECTION, SITE NOT SPECIFIED B95.2 - ENTEROCOCCUS THE CAUSE OF DISEASES CLASSIFIED ELSEWHERE Assessment/Plan (1) Obstructive hydrocephalus secondary to metastasis -reviewed neurology, rad onc, and oncology notes -neurology started on thiamine -oncology to decide if further chemotherapy is indicated (2) Dehydration Assessment/Plan: -stop IVF today -patient more awake, encourage po intake Code(s): E86.0 - DEHYDRATION (3) Failure to thrive Assessment/Plan: -continue megace at physical therapy -nutritional status improved from admission -continue supplements Code(s): [id number] - Qualifiers: Failure to thrive age range: in adult Qualified Code(s): R62.7 - Adult failure to thrive (4) Lung cancer metastatic to bone Assessment/Plan: -as above Code(s): C34.90 - MALIGNANT NEOPLASM OF UNSP PART OF UNSP BRONCHUS OR LUNG C79.51 - SECONDARY MALIGNANT NEOPLASM OF BONE (5) HTN (hypertension) Assessment/Plan: -continue ramipril Code(s): I10 - ESSENTIAL (PRIMARY) HYPERTENSION (6) Headache Assessment/Plan: -resolved Code(s): R51 - HEADACHE Qualifiers: Headache type: unspecified Headache chronicity pattern: unspecified pattern Intractability: not intractable Qualified Code(s): R51 - Headache (6) Metabolic encephalopathy -secondary to UTI -resolved (7) UTI -ID following -on rocephin
--- NOTE | 2016-11-15 13:59 | PN ---
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 though culture may may not grow as pt has been on iv abx Pt has improved clinically No neurosurgical intervention indicated Management per Chemo/WBXRT per oncology/rad onc team D/w Dr Mart
--- NOTE | 2016-11-15 15:48 | PN ---
Progress Note (short form) - Note Progress Note: Radiation Oncology Clinically unchanged. Neurologically stable. MRI spine reviewed. Agree with IT/systemic chemo/TKI. RT if clinically progresses or unable to tolerate chemo.
--- NOTE | 2016-11-15 16:09 | PN ---
Progress Note (short form) - Note Progress Note: patient seen and examined confused AFVSS Cor: RSR, No murmurs, No gallops Lungs: Clear to P&A Abd: Soft, Normal bowel sounds, No organomegaly Ext:No significant edema Last Vital Signs Temp Pulse Resp BP Pulse Ox 99.1 F 98 H 18 119/54 94 L 11/15/16 14:12 11/15/16 14:12 11/15/16 10:00 11/15/16 14:12 11/12/16 09:00 Cor: RSR, No murmurs, No gallops Lungs: Clear to P&A Abd: Soft, Normal bowel sounds, No organomegaly Ext:No significant edema Labs reviewed A/P 71 y/o female with metastatic lung cancer, adeno ca had been on carbo/alimta and more recently, tarceva, comes in with headache and failure to thrive concerning for progressive disease altered mental status due to leptomeningeal disease csf suggestive of leptomeningeal disease MRI spine showed no obvious leptomeningeal disease discussed with daughter. will present in tumor board tomorrow. will consider LP and MTX. discussed this with daughter who agrees will also star decadron 4mg q 8h/protonix
[2016-11-15] MEDS: TEMAZEPAM 15 MG CAPSULE PO SCH (21:29)
[2016-11-15] MEDS ORDERED: DEXAMETHASONE SOD PHOSPHATE 4 MG/1 ML VIAL IVPB SCH (23:45)
[2016-11-16 00:07] LABS: HSV 2 DNA. Negative (Negative)
[2016-11-16] MEDS: NYSTATIN 500,000 UNITS/5 ML SUSPENSION PO SCH ×4 (00:20→18:23)
[2016-11-16] MEDS: DEXAMETHASONE SOD PHOSPHATE 4 MG/1 ML VIAL IVPB SCH ×4 (02:54→18:23)
[2016-11-16 08:43] LABS: BASOPHIL 0.3 % (0-2.0); EOSINOPHIL 0.3 % (0-4.5); MCH 29.3 pg (25.7-33.7); MCHC 33.9 g/dl (32.0-36.0); MEAN CELL VOLUME 86.4 fl (80-96); MEAN PLT VOLUME 8.1 fl (7.5-11.1); NEUTROPHILS 89.1 % (42.8-82.8); PLATELET COUNT 207 K/MM3 (134-434); RDW 14.4 % (11.6-15.6); WHITE BLOOD COUNT 12.2 K/mm3 (4.0-10.0)
[2016-11-16 09:17] LABS: CALCIUM 9.2 mg/dL (8.5-10.1); COCKROFT - GAULT 51.051; PHOSPHOROUS 3.3 mg/dL (2.5-4.9)
[2016-11-16] MEDS: cefTRIAXone 1 GM/50 ML BAG (PRE-DOCKED) IVPB SCH (10:21)
[2016-11-16] MEDS: MAGNESIUM OXIDE 400 MG TABLET (FP) PO SCH ×2 (10:22→22:41)
[2016-11-16] MEDS: PANTOPRAZOLE 40 MG TABLET (FP) PO SCH (10:22)
[2016-11-16] MEDS: RAMIPRIL 2.5 MG CAPSULE (FP) PO SCH (10:22)
[2016-11-16] MEDS ORDERED: PT OWN MED DRAWER 7, Y5N ONE (10:23)
[2016-11-16] MEDS: THIAMINE HCL 200 MG/2 ML VIAL IVPB SCH (10:28)
--- NOTE | 2016-11-16 13:50 | PN ---
Progress Note, Physician Chief Complaint: Ms Walter says she feels fine. No cp, sob, n/v. - Current Medication List Current Medications: Active Medications Ceftriaxone Sodium (Rocephin 1gm Ivpb (Pre-Docked)) 1 gm IVPB DAILY [facility] Last Admin: 11/16/16 10:21 Dose: 1 gm Dexamethasone Sodium Phosphate (Decadron Injection -) 4 mg IVPB Q6H-IV [facility] Last Admin: 11/16/16 10:21 Dose: 4 mg Magnesium Oxide (Mag-Ox -) 400 mg PO BID [facility] Last Admin: 11/16/16 10:22 Dose: 400 mg Nystatin (Nystatin Oral Suspension -) 500,000 units PO Q6HPO [facility] Last Admin: 11/16/16 12:56 Dose: Not Given Ondansetron HCl (Zofran Injection) 4 mg IVPB Q6H PRN PRN Reason: NAUSEA Last Admin: 11/16/16 10:21 Dose: 4 mg Pantoprazole Sodium (Protonix -) 40 mg PO DAILY [facility] Last Admin: 11/16/16 10:22 Dose: 40 mg Ramipril (Altace -) 2.5 mg PO DAILY [facility] Last Admin: 11/16/16 10:22 Dose: 2.5 mg Temazepam (Restoril -) 15 mg PO HS [facility] Last Admin: 11/15/16 21:29 Dose: 15 mg Thiamine HCl (Vitamin B1 Injection -) 200 mg IVPB DAILY [facility] Last Admin: 11/16/16 10:28 Dose: 200 mg - Objective Vital Signs: Vital Signs Temperature 98 F 11/16/16 10:00 Pulse Rate 84 11/16/16 10:00 Respiratory Rate 22 11/16/16 10:00 Blood Pressure 134/100 11/16/16 10:00 O2 Sat by Pulse Oximetry (%) 97 11/16/16 09:00 Constitutional: Yes: Well Nourished, No Distress, Calm Cardiovascular: Yes: Regular Rate and Rhythm. No: Gallop, Murmur, Rub Respiratory: Yes: Regular, CTA Bilaterally. No: Rales, Rhonchi, Wheezes Gastrointestinal: Yes: Normal Bowel Sounds, Soft. No: Distention, Tenderness Extremities: Yes: WNL Edema: No Labs: CBC, BMP 11/16/16 07:24 11/16/16 07:24 INR, PTT INR 1.13 (0.82-1.09) 11/15/16 06:45 Problem List - Problems (1) Obstructive hydrocephalus Code(s): G91.1 - OBSTRUCTIVE HYDROCEPHALUS (2) Dehydration Code(s): E86.0 - DEHYDRATION (3) Failure to thrive Code(s): [id number] - Qualifiers: Failure to thrive age range: in adult Qualified Code(s): R62.7 - Adult failure to thrive (4) Lung cancer metastatic to bone Code(s): C34.90 - MALIGNANT NEOPLASM OF UNSP PART OF UNSP BRONCHUS OR LUNG C79.51 - SECONDARY MALIGNANT NEOPLASM OF BONE (5) HTN (hypertension) Code(s): I10 - ESSENTIAL (PRIMARY) HYPERTENSION (6) Headache Code(s): R51 - HEADACHE Qualifiers: Headache type: unspecified Headache chronicity pattern: unspecified pattern Intractability: not intractable Qualified Code(s): R51 - Headache (7) Metabolic encephalopathy Code(s): G93.41 - METABOLIC ENCEPHALOPATHY (8) UTI (urinary tract infection) due to Enterococcus Code(s): N39.0 - URINARY TRACT INFECTION, SITE NOT SPECIFIED B95.2 - ENTEROCOCCUS THE CAUSE OF DISEASES CLASSIFIED ELSEWHERE Assessment/Plan (1) Obstructive hydrocephalus secondary to metastasis -reviewed neurology, rad onc, and oncology notes -neurology started on thiamine -case d/w oncology, planning for intrathecal methotrexate (2) Dehydration Assessment/Plan: -resolved -encourage po intake Code(s): E86.0 - DEHYDRATION (3) Failure to thrive Assessment/Plan: -continue megace at physical therapy -nutritional status improved from admission -continue supplements Code(s): [id number] - Qualifiers: Failure to thrive age range: in adult Qualified Code(s): R62.7 - Adult failure to thrive (4) Lung cancer metastatic to bone Assessment/Plan: -as above Code(s): C34.90 - MALIGNANT NEOPLASM OF UNSP PART OF UNSP BRONCHUS OR LUNG C79.51 - SECONDARY MALIGNANT NEOPLASM OF BONE (5) HTN (hypertension) Assessment/Plan: -continue ramipril Code(s): I10 - ESSENTIAL (PRIMARY) HYPERTENSION (6) Headache Assessment/Plan: -resolved Code(s): R51 - HEADACHE Qualifiers: Headache type: unspecified Headache chronicity pattern: unspecified pattern Intractability: not intractable Qualified Code(s): R51 - Headache (6) Metabolic encephalopathy -secondary to UTI -resolved (7) UTI -ID following -on rocephin
--- NOTE | 2016-11-16 15:35 | PN ---
Progress Note, Physician History of Present Illness: More lethargic today, but able to answer yes/no questions with nodding Afebrile with slight leukocytosis on steroids CSF c/s (-) CSF cytology + malignant cells - Current Medication List Current Medications: Active Medications Ceftriaxone Sodium (Rocephin 1gm Ivpb (Pre-Docked)) 1 gm IVPB DAILY [facility] Last Admin: 11/16/16 10:21 Dose: 1 gm Dexamethasone Sodium Phosphate (Decadron Injection -) 4 mg IVPB Q6H-IV [facility] Last Admin: 11/16/16 10:21 Dose: 4 mg Magnesium Oxide (Mag-Ox -) 400 mg PO BID [facility] Last Admin: 11/16/16 10:22 Dose: 400 mg Nystatin (Nystatin Oral Suspension -) 500,000 units PO Q6HPO [facility] Last Admin: 11/16/16 12:56 Dose: Not Given Ondansetron HCl (Zofran Injection) 4 mg IVPB Q6H PRN PRN Reason: NAUSEA Last Admin: 11/16/16 10:21 Dose: 4 mg Pantoprazole Sodium (Protonix -) 40 mg PO DAILY [facility] Last Admin: 11/16/16 10:22 Dose: 40 mg Ramipril (Altace -) 2.5 mg PO DAILY [facility] Last Admin: 11/16/16 10:22 Dose: 2.5 mg Temazepam (Restoril -) 15 mg PO HS [facility] Last Admin: 11/15/16 21:29 Dose: 15 mg Thiamine HCl (Vitamin B1 Injection -) 200 mg IVPB DAILY [facility] Last Admin: 11/16/16 10:28 Dose: 200 mg - Objective Vital Signs: Vital Signs Temperature 98 F 11/16/16 10:00 Pulse Rate 84 11/16/16 10:00 Respiratory Rate 22 11/16/16 10:00 Blood Pressure 134/100 11/16/16 10:00 O2 Sat by Pulse Oximetry (%) 97 11/16/16 09:00 Constitutional: Yes: No Distress Eyes: Yes: Conjunctiva Clear Cardiovascular: Yes: Regular Rate and Rhythm, S1, S2 Respiratory: Yes: CTA Bilaterally Gastrointestinal: Yes: Normal Bowel Sounds, Soft. No: Tenderness Edema: No Labs: CBC, BMP 11/16/16 07:24 11/16/16 07:24 INR, PTT INR 1.13 (0.82-1.09) 11/15/16 06:45 Assessment/Plan Carcinomatous meningitis Metastatic ca Hydrocephalus Chronic cholecystitis CSF no WBC CSF c/s (-) No evidence for bacterial meningitis Day # 7 antibiotics- D/C, observe off
--- NOTE | 2016-11-16 18:05 | PN ---
Progress Note (short form) - Note Progress Note: Patient seen and examined Confusion-does not know my name, place, President etc. Last Vital Signs Temp Pulse Resp BP Pulse Ox 98.1 F 101 H 22 131/80 97 11/16/16 15:48 11/16/16 15:48 11/16/16 15:48 11/16/16 15:48 11/16/16 09:00 HEENT: JOSE ROBERTO, EOM Intact Oropharynx: No thrush, No mucositis Cor: RSR, No murmurs, No gallops Lungs: Clear to P&A Abd: Soft, Normal bowel sounds, No organomegaly Ext:No significant edema Skin: No rashes, Integument intact CBC, BMP 11/16/16 07:24 11/16/16 07:24 Current Medications Generic Name Dose Route Start Last Admin Trade Name Freq PRN Reason Stop Dose Admin Dexamethasone Sodium Phosphate 4 mg 11/16/16 18:00 Decadron Injection - IVPB Q8H-IV [facility] Magnesium Oxide 400 mg 11/14/16 22:00 11/16/16 10:22 Mag-Ox - PO 400 mg BID YUE Administration Nystatin 500,000 units 11/09/16 00:00 11/16/16 12:56 Nystatin Oral Suspension - PO Not Given Q6HPO [facility]UE Ondansetron HCl 4 mg 11/07/16 06:07 11/16/16 10:21 Zofran Injection IVPB 4 mg Q6H PRN Administration NAUSEA Pantoprazole Sodium 40 mg 11/16/16 10:00 11/16/16 10:22 Protonix - PO 40 mg DAILY [facility] Administration Ramipril 2.5 mg 11/08/16 10:00 11/16/16 10:22 Altace - PO 2.5 mg DAILY [facility] Administration Temazepam 15 mg 11/08/16 22:00 11/15/16 21:29 Restoril - PO 15 mg HS YUE Administration Thiamine HCl 200 mg 11/09/16 18:45 11/16/16 10:28 Vitamin B1 Injection - IVPB 200 mg DAILY [facility] Administration 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 Consider LP with I.T MTX next week.
[2016-11-16] MEDS: TEMAZEPAM 15 MG CAPSULE PO SCH (22:41)
[2016-11-17] MEDS: NYSTATIN 500,000 UNITS/5 ML SUSPENSION PO SCH ×4 (00:10→17:12)
[2016-11-17] MEDS: DEXAMETHASONE SOD PHOSPHATE 4 MG/1 ML VIAL IVPB SCH ×3 (02:00→17:12)
--- NOTE | 2016-11-17 08:33 | PN ---
Progress Note (short form) - Note Progress Note: PATIENT AWAKE BUT CONFUSED . DR SAAVEDRA'S NOTE APPRECIATED . TO CONSIDER LP NEXT WEEK WITH IT CHEMO. I.D. FOLLOWUP APPRECIATED. OFF AB. Selected Entries 11/17/16 06:00 Temperature 98 F Pulse Rate 94 H Respiratory 18 Rate Blood Pressure 136/86 Laboratory Tests 11/10/16 11/16/16 11/16/16 06:40 07:24 07:24 WBC 12.2 H D RBC 4.98 Hgb 14.6 D Hct 43.0 Plt Count 207 Sodium 135 L Potassium 4.3 Chloride 99 Carbon Dioxide 22 Anion Gap 14 BUN 14 Creatinine 1.0 Random Glucose 125 H Calcium 9.2 Phosphorus 3.3 Magnesium 2.0 Vitamin B12 460 P/E <> CONFUSED.NO RESPIRATORY / NO CARDIAC DISTRESS HEENT <> NECK SUPPLE COR S1 S2 CHEST <> CLEAR P & A ABD <> SOFT NONTENDER EXT <> NO CALF TENDERNESS. IMP. METASTATIC LUNG CA LEPTOMENINGEAL CARCINOMATOSIS HTN TYPE 2 DM PLAN : PER ONCOLOGY <> IT CHEMO POSSIBLE RT RX. FOLLOW LABS. SUPPORTIVE CARE
[2016-11-17 08:51] LABS: BASOPHIL 0.1 % (0-2.0); MCH 29.4 pg (25.7-33.7); MCHC 34.4 g/dl (32.0-36.0); MEAN CELL VOLUME 85.5 fl (80-96); MEAN PLT VOLUME 8.3 fl (7.5-11.1); NEUTROPHILS 93.3 % (42.8-82.8); PLATELET COUNT 237 K/MM3 (134-434); RDW 14.5 % (11.6-15.6); WHITE BLOOD COUNT 15.5 K/mm3 (4.0-10.0)
[2016-11-17 09:07] LABS: COCKROFT - GAULT 42.5425; CREATININE 1.2 mg/dL (0.55-1.02); MAGNESIUM 2.1 mg/dL (1.8-2.4); PHOSPHOROUS 3.5 mg/dL (2.5-4.9)
[2016-11-17] MEDS ORDERED: PT OWN MED DRAWER 7, Y5N ONE (09:55)
[2016-11-17] MEDS: THIAMINE HCL 200 MG/2 ML VIAL IVPB SCH (10:00)
[2016-11-17] MEDS: MAGNESIUM OXIDE 400 MG TABLET (FP) PO SCH ×2 (10:00→22:02)
[2016-11-17] MEDS: PANTOPRAZOLE 40 MG TABLET (FP) PO SCH (10:00)
[2016-11-17] MEDS: RAMIPRIL 2.5 MG CAPSULE (FP) PO SCH (10:00)
--- NOTE | 2016-11-17 15:41 | PN ---
Progress Note (short form) - Note Progress Note: Progress Note: Patient seen in follow up. No events overnight. As per , patient is a lot more alert this morning than previously. Meds reviewed. Current Medications Generic Name Dose Route Start Last Admin Trade Name Freq PRN Reason Stop Dose Admin Dexamethasone Sodium Phosphate 4 mg 11/16/16 18:00 11/17/16 10:00 Decadron Injection - IVPB 4 mg Q8H-IV [facility] Administration Magnesium Oxide 400 mg 11/14/16 22:00 11/17/16 10:00 Mag-Ox - PO 400 mg BID YUE Administration Nystatin 500,000 units 11/09/16 00:00 11/17/16 11:53 Nystatin Oral Suspension - PO Not Given Q6HPO [facility]UE Ondansetron HCl 4 mg 11/07/16 06:07 11/16/16 10:21 Zofran Injection IVPB 4 mg Q6H PRN Administration NAUSEA Pantoprazole Sodium 40 mg 11/16/16 10:00 11/17/16 10:00 Protonix - PO 40 mg DAILY [facility] Administration Ramipril 2.5 mg 11/08/16 10:00 11/17/16 10:00 Altace - PO 2.5 mg DAILY [facility] Administration Temazepam 15 mg 11/08/16 22:00 11/16/16 22:41 Restoril - PO 15 mg HS YUE Administration Thiamine HCl 200 mg 11/09/16 18:45 11/17/16 10:00 Vitamin B1 Injection - IVPB 200 mg DAILY [facility] Administration On examination: Si Last Vital Signs Temp Pulse Resp BP Pulse Ox 98.4 F 111 H 20 139/74 96 11/17/16 14:07 11/17/16 14:07 11/17/16 10:00 11/17/16 14:07 11/16/16 21:00 General: In no acute distress, sitting in bed, awake. Oropharyngeal: No signs mucosal hemorrhage, no mucosal lesions. Extremities: Pallor, no icterus. Chest:clear. Abdomen: Soft Neuro: Awake and co-operative, mildly confused, but generally oriented. CVS: Normal sinus rhythm, S1, S2, no gallop or murmur. 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 Awaiting IT MTX on Saturday. Check coags. Appears to be doing better on steroids in interim.
[2016-11-17] MEDS: TEMAZEPAM 15 MG CAPSULE PO SCH (22:02)
[2016-11-18] MEDS: NYSTATIN 500,000 UNITS/5 ML SUSPENSION PO SCH ×4 (00:01→17:26)
[2016-11-18] MEDS: DEXAMETHASONE SOD PHOSPHATE 4 MG/1 ML VIAL IVPB SCH ×3 (02:30→17:26)
--- NOTE | 2016-11-18 07:58 | PN ---
Progress Note (short form) - Note Progress Note: PATIENT CONFUSED / AWAKE / NO DISTRESS . IT CHEMO ON SATURDAY. Selected Entries Laboratory Tests Laboratory Tests 11/15/16 11/17/16 11/17/16 06:45 08:15 08:15 WBC 15.5 H RBC 4.69 Hgb 13.8 Hct 40.1 Plt Count 237 INR 1.13 PTT (Actin FS) 30.6 Sodium 136 Potassium 4.4 Chloride 100 Carbon Dioxide 20 L Anion Gap 16 BUN 25 H D Creatinine 1.2 H Random Glucose 151 H D Calcium 9.0 Phosphorus 3.5 Magnesium 2.1 P/E < V/S STABLE / AFEBRILE / BP 156 / 80 > CONFUSED BUT COOPERATIVE. HEENT <> NECK SUPPLE COR <> S1 S2 HS DISTANT. CHEST <> FEW SCATTERED RHONCHI ABD <> SOFT / NO REBOUND / NO GUARDING . EXT <> NO SWELLING . IMP. METASTATIC LUNG CA LEPTOMENINGEAL CARCINOMATOSIS HTN TYPE 2 DM PLAN : ONCOLOGY FOLLOWUP PLAN FOR IT CHEMO. IN AM . LABS ORDERED FOR AM. SUPPORTIVE CARE
[2016-11-18] MEDS: RAMIPRIL 2.5 MG CAPSULE (FP) PO SCH (10:19)
[2016-11-18] MEDS: MAGNESIUM OXIDE 400 MG TABLET (FP) PO SCH ×2 (10:20→21:37)
[2016-11-18] MEDS: THIAMINE HCL 200 MG/2 ML VIAL IVPB SCH (10:20)
[2016-11-18] MEDS: PANTOPRAZOLE 40 MG TABLET (FP) PO SCH (10:20)
[2016-11-18 10:29] LABS: INR 1.08 (0.82-1.09); PROTHROMBIN TIME (PATIENT) 11.9 SEC (9.98-11.88)
[2016-11-18 10:31] LABS: ACTIVATED PTT 27.5 SECONDS (26.9-34.4)
--- NOTE | 2016-11-18 11:43 | PN ---
Progress Note (short form) - Note Progress Note: Progress Note: Patient seen in follow up. No events overnight. As per nurse, level of orientation, and alertness, fluctuating. Overall stable. Meds reviewed. Current Medications Generic Name Dose Route Start Last Admin Trade Name Freq PRN Reason Stop Dose Admin Dexamethasone Sodium Phosphate 4 mg 11/16/16 18:00 11/18/16 10:20 Decadron Injection - IVPB 4 mg Q8H-IV [facility] Administration Magnesium Oxide 400 mg 11/14/16 22:00 11/18/16 10:20 Mag-Ox - PO 400 mg BID [facility] Administration Nystatin 500,000 units 11/09/16 00:00 11/18/16 06:01 Nystatin Oral Suspension - PO 500,000 units Q6HPO [facility] Administration Ondansetron HCl 4 mg 11/07/16 06:07 11/16/16 10:21 Zofran Injection IVPB 4 mg Q6H PRN Administration NAUSEA Pantoprazole Sodium 40 mg 11/16/16 10:00 11/18/16 10:20 Protonix - PO 40 mg DAILY [facility] Administration Ramipril 2.5 mg 11/08/16 10:00 11/18/16 10:19 Altace - PO 2.5 mg DAILY [facility] Administration Temazepam 15 mg 11/08/16 22:00 11/17/16 22:02 Restoril - PO 15 mg HS [facility] Administration Thiamine HCl 200 mg 11/09/16 18:45 11/18/16 10:20 Vitamin B1 Injection - IVPB 200 mg DAILY [facility] Administration On examination: Last Vital Signs Temp Pulse Resp BP Pulse Ox 98.3 F 76 18 154/76 96 11/18/16 08:55 11/18/16 08:55 11/18/16 08:55 11/18/16 08:55 11/16/16 21:00 General: In no acute distress, sleeping. Oropharyngeal: No signs mucosal hemorrhage, no mucosal lesions. Extremities: Pallor, no icterus. Chest:clear. Abdomen: Soft Neuro: Awake and co-operative, mildly confused, but generally oriented. CVS: Normal sinus rhythm, S1, S2, no gallop or murmur. 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 Awaiting IT MTX on Saturday. Check coags.
[2016-11-18] MEDS: TEMAZEPAM 15 MG CAPSULE PO SCH (21:37)
[2016-11-19] MEDS: NYSTATIN 500,000 UNITS/5 ML SUSPENSION PO SCH ×4 (01:55→17:55)
[2016-11-19] MEDS: DEXAMETHASONE SOD PHOSPHATE 4 MG/1 ML VIAL IVPB SCH ×3 (01:55→17:55)
[2016-11-19 07:51] LABS: BASOPHIL 0.2 % (0-2.0); MCH 28.9 pg (25.7-33.7); MCHC 33.4 g/dl (32.0-36.0); MEAN CELL VOLUME 86.7 fl (80-96); MEAN PLT VOLUME 8.1 fl (7.5-11.1); NEUTROPHILS 92.8 % (42.8-82.8); PLATELET COUNT 225 K/MM3 (134-434); RDW 14.5 % (11.6-15.6); WHITE BLOOD COUNT 16.4 K/mm3 (4.0-10.0)
[2016-11-19 08:17] LABS: ALBUMIN 3.4 g/dl (3.4-5.0); BILIRUBIN,TOTAL 0.9 mg/dL (0.2-1.0); COCKROFT - GAULT 42.5425; CREATININE 1.2 mg/dL (0.55-1.02); TOT PROT 6.7 g/dl (6.4-8.2)
[2016-11-19] MEDS: PANTOPRAZOLE 40 MG TABLET (FP) PO SCH (10:41)
[2016-11-19] MEDS: RAMIPRIL 2.5 MG CAPSULE (FP) PO SCH (10:41)
[2016-11-19] MEDS: THIAMINE HCL 200 MG/2 ML VIAL IVPB SCH (10:42)
[2016-11-19] MEDS: MAGNESIUM OXIDE 400 MG TABLET (FP) PO SCH ×2 (10:42→21:45)
[2016-11-19] MEDS ORDERED: PORTA CATH FLUSH 10 ML IVPUSH ONE (12:47)
--- NOTE | 2016-11-19 13:17 | PN ---
Progress Note, Physician Chief Complaint: Ms Walter says she feels fine. No cp, sob, n/v. - Current Medication List Current Medications: Active Medications Dexamethasone Sodium Phosphate (Decadron Injection -) 4 mg IVPB Q8H-IV [facility] Last Admin: 11/19/16 10:42 Dose: 4 mg IV Flush (Mau-Cath Flush) 10 ml IVPUSH ONCE ONE Stop: 11/19/16 12:48 Magnesium Oxide (Mag-Ox -) 400 mg PO BID [facility] Last Admin: 11/19/16 10:42 Dose: 400 mg Nystatin (Nystatin Oral Suspension -) 500,000 units PO Q6HPO [facility] Last Admin: 11/19/16 06:24 Dose: 500,000 units Ondansetron HCl (Zofran Injection) 4 mg IVPB Q6H PRN PRN Reason: NAUSEA Last Admin: 11/16/16 10:21 Dose: 4 mg Pantoprazole Sodium (Protonix -) 40 mg PO DAILY [facility] Last Admin: 11/19/16 10:41 Dose: 40 mg Ramipril (Altace -) 2.5 mg PO DAILY [facility] Last Admin: 11/19/16 10:41 Dose: 2.5 mg Temazepam (Restoril -) 15 mg PO HS [facility] Last Admin: 11/18/16 21:37 Dose: 15 mg Thiamine HCl (Vitamin B1 Injection -) 200 mg IVPB DAILY [facility] Last Admin: 11/19/16 10:42 Dose: 200 mg - Objective Vital Signs: Vital Signs Temperature 98.7 F 11/19/16 06:00 Pulse Rate 71 11/19/16 10:00 Respiratory Rate 20 11/19/16 10:00 Blood Pressure 154/80 11/19/16 10:00 O2 Sat by Pulse Oximetry (%) 96 11/16/16 21:00 Constitutional: Yes: Well Nourished, No Distress, Calm Cardiovascular: Yes: Regular Rate and Rhythm. No: Gallop, Murmur, Rub Respiratory: Yes: Regular, CTA Bilaterally. No: Rales, Rhonchi, Wheezes Gastrointestinal: Yes: Normal Bowel Sounds, Soft. No: Distention, Tenderness Extremities: Yes: WNL Edema: No Labs: CBC, BMP 11/19/16 07:00 11/19/16 07:00 INR, PTT INR 1.08 (0.82-1.09) 11/18/16 10:00 Problem List - Problems (1) Obstructive hydrocephalus Code(s): G91.1 - OBSTRUCTIVE HYDROCEPHALUS (2) Dehydration Code(s): E86.0 - DEHYDRATION (3) Failure to thrive Code(s): [id number] - Qualifiers: Failure to thrive age range: in adult Qualified Code(s): R62.7 - Adult failure to thrive (4) Lung cancer metastatic to bone Code(s): C34.90 - MALIGNANT NEOPLASM OF UNSP PART OF UNSP BRONCHUS OR LUNG C79.51 - SECONDARY MALIGNANT NEOPLASM OF BONE (5) HTN (hypertension) Code(s): I10 - ESSENTIAL (PRIMARY) HYPERTENSION (6) Headache Code(s): R51 - HEADACHE Qualifiers: Headache type: unspecified Headache chronicity pattern: unspecified pattern Intractability: not intractable Qualified Code(s): R51 - Headache (7) Metabolic encephalopathy Code(s): G93.41 - METABOLIC ENCEPHALOPATHY (8) UTI (urinary tract infection) due to Enterococcus Code(s): N39.0 - URINARY TRACT INFECTION, SITE NOT SPECIFIED B95.2 - ENTEROCOCCUS THE CAUSE OF DISEASES CLASSIFIED ELSEWHERE Assessment/Plan (1) Obstructive hydrocephalus secondary to metastasis -planning for intrathecal methotrexate -oncology following (2) Dehydration Assessment/Plan: -resolved -encourage po intake Code(s): E86.0 - DEHYDRATION (3) Failure to thrive Assessment/Plan: -continue megace at physical therapy -nutritional status improved from admission -continue supplements Code(s): [id number] - Qualifiers: Failure to thrive age range: in adult Qualified Code(s): R62.7 - Adult failure to thrive (4) Lung cancer metastatic to bone Assessment/Plan: -as above Code(s): C34.90 - MALIGNANT NEOPLASM OF UNSP PART OF UNSP BRONCHUS OR LUNG C79.51 - SECONDARY MALIGNANT NEOPLASM OF BONE (5) HTN (hypertension) Assessment/Plan: -continue ramipril Code(s): I10 - ESSENTIAL (PRIMARY) HYPERTENSION (6) Headache Assessment/Plan: -resolved Code(s): R51 - HEADACHE Qualifiers: Headache type: unspecified Headache chronicity pattern: unspecified pattern Intractability: not intractable Qualified Code(s): R51 - Headache (6) Metabolic encephalopathy -secondary to UTI -resolved (7) UTI -s/p full course antibiotics
--- NOTE | 2016-11-19 14:06 | PN ---
Progress Note (short form) - Note Progress Note: patient seen and examined confused Vital Signs Period Temp Pulse Resp BP Sys/Carlos Pulse Ox Last 24 Hr 98.7 F-98.9 F 71-91 20-20 138-154/73-80 Cor: RSR, No murmurs, No gallops Lungs: Clear to P&A Abd: Soft, Normal bowel sounds, No organomegaly Ext:No significant edema Abnormal Lab Results 11/19/16 11/19/16 07:00 07:00 WBC 16.4 H Neutrophils % 92.8 H Lymphocytes % 3.3 L D Monocytes % 3.7 L Sodium 133 L Chloride 95 L BUN 33 H D Creatinine 1.2 H Random Glucose 159 H AST 11 L Active Medications Generic Name Dose Route Start Last Admin Trade Name Freq PRN Reason Stop Dose Admin Dexamethasone Sodium Phosphate 4 mg 11/16/16 18:00 11/19/16 10:42 Decadron Injection - IVPB 4 mg Q8H-IV [facility] Administration Magnesium Oxide 400 mg 11/14/16 22:00 11/19/16 10:42 Mag-Ox - PO 400 mg BID YUE Administration Methotrexate Sodium 12 mg 11/19/16 15:00 Mexate Injection - IT 11/19/16 15:01 ONCE ONE Nystatin 500,000 units 11/09/16 00:00 11/19/16 06:24 Nystatin Oral Suspension - PO 500,000 units Q6HPO [facility]UE Administration Ondansetron HCl 4 mg 11/07/16 06:07 11/16/16 10:21 Zofran Injection IVPB 4 mg Q6H PRN Administration NAUSEA Pantoprazole Sodium 40 mg 11/16/16 10:00 11/19/16 10:41 Protonix - PO 40 mg DAILY YUE Administration Ramipril 2.5 mg 11/08/16 10:00 11/19/16 10:41 Altace - PO 2.5 mg DAILY [facility]UE Administration Temazepam 15 mg 11/08/16 22:00 11/18/16 21:37 Restoril - PO 15 mg HS YUE Administration Thiamine HCl 200 mg 11/09/16 18:45 11/19/16 10:42 Vitamin B1 Injection - IVPB 200 mg DAILY [facility]UE Administration A/P 71 y/o female with metastatic lung cancer, adeno ca had been on carbo/alimta and more recently, tarceva, comes in with headache and failure to thrive concerning for progressive disease altered mental status due to leptomeningeal disease csf suggestive of leptomeningeal disease For intrathecal methotrexate today discussed risks/benefits, complications with patients . Informed consent obtained from her will plan on next treatemnt Lucila/Fri If csf does not clear with 4 treatment will consider ommaya placement
[2016-11-19] MEDS ORDERED: LORAZEPAM CARPU-JECT 2 MG/ML DISP.SYRIN IVPB ONE (14:38)
[2016-11-19] MEDS ORDERED: SODIUM CHLORIDE 1,000 ML IV SCH (15:00)
[2016-11-19] MEDS ORDERED: METHOTREXATE SODIUM/PF 25 MG/ML VIAL IT ONE (15:00)
[2016-11-19 17:00] LABS: CSF APPEARANCE CLEAR; CSF COLOR COLORLESS
[2016-11-19 18:22] LABS: CSF RBC 1 /mm3
[2016-11-19] MEDS: TEMAZEPAM 15 MG CAPSULE PO SCH (21:45)
[2016-11-19 23:15] LABS: GLUCOSE,CSF 14 mg/dL (50-80)
[2016-11-20] MEDS: NYSTATIN 500,000 UNITS/5 ML SUSPENSION PO SCH ×4 (00:05→17:25)
[2016-11-20] MEDS: DEXAMETHASONE SOD PHOSPHATE 4 MG/1 ML VIAL IVPB SCH ×3 (01:33→17:25)
[2016-11-20 08:08] LABS: BASOPHIL 0.1 % (0-2.0); MCH 29.3 pg (25.7-33.7); MCHC 33.8 g/dl (32.0-36.0); MEAN CELL VOLUME 86.7 fl (80-96); MEAN PLT VOLUME 8.2 fl (7.5-11.1); NEUTROPHILS 91.6 % (42.8-82.8); PLATELET COUNT 198 K/MM3 (134-434); RDW 14.6 % (11.6-15.6); WHITE BLOOD COUNT 13.2 K/mm3 (4.0-10.0)
[2016-11-20 08:30] LABS: CALCIUM 8.7 mg/dL (8.5-10.1); COCKROFT - GAULT 42.5425; CREATININE 1.2 mg/dL (0.55-1.02); MAGNESIUM 2.1 mg/dL (1.8-2.4); PHOSPHOROUS 3.2 mg/dL (2.5-4.9)
[2016-11-20] MEDS: PANTOPRAZOLE 40 MG TABLET (FP) PO SCH (11:00)
[2016-11-20] MEDS: MAGNESIUM OXIDE 400 MG TABLET (FP) PO SCH ×2 (11:00→21:58)
[2016-11-20] MEDS: RAMIPRIL 2.5 MG CAPSULE (FP) PO SCH (11:00)
--- NOTE | 2016-11-20 14:01 | PATH ---
Cytology Non-Gynecological Report Patient Name: ISABEL STONE Med. Rec. #: [id number] /Age/Gender: 1945 (Age: 71) / F Account: [id number] Location: [address] [place] [address]/[facility] Taken: 11/19/2016 Received: 11/20/2016 Reported: 11/20/2016 Physicians: Ned Vásquez Specimen(s) Received CEREBROSPINAL FLUID Clinical History Lung cancer, r/o leptomeningeal disease Final Diagnosis CEREBROSPINAL FLUID: SATISFACTORY FOR EVALUATION. SCATTERED MALIGNANT CELLS IDENTIFIED. CONSISTENT WITH INVOLVEMENT BY ADENOCARCINOMA (SEE COMMENT). Comment: Also refer to prior cerebrospinal fluid cytology ([id number]). Electronically Signed Abel Lamb M.D. Gross Description Received is approximately 2 cc of clear fluid fresh. Four cytofunnel slides are made.
--- NOTE | 2016-11-20 15:24 | PN ---
Progress Note, Physician Chief Complaint: Ms Walter says she feels fine. No cp, sob, n/v. - Current Medication List Current Medications: Active Medications Dexamethasone Sodium Phosphate (Decadron Injection -) 4 mg IVPB Q8H-IV [facility] Last Admin: 11/20/16 11:00 Dose: 4 mg Magnesium Oxide (Mag-Ox -) 400 mg PO BID [facility] Last Admin: 11/20/16 11:00 Dose: 400 mg Nystatin (Nystatin Oral Suspension -) 500,000 units PO Q6HPO [facility] Last Admin: 11/20/16 05:43 Dose: 500,000 units Ondansetron HCl (Zofran Injection) 4 mg IVPB Q6H PRN PRN Reason: NAUSEA Last Admin: 11/16/16 10:21 Dose: 4 mg Pantoprazole Sodium (Protonix -) 40 mg PO DAILY [facility] Last Admin: 11/20/16 11:00 Dose: 40 mg Ramipril (Altace -) 2.5 mg PO DAILY [facility] Last Admin: 11/20/16 11:00 Dose: 2.5 mg Temazepam (Restoril -) 15 mg PO HS [facility] Last Admin: 11/19/16 21:45 Dose: 15 mg - Objective Vital Signs: Vital Signs Temperature 97.5 F L 11/20/16 14:00 Pulse Rate 95 H 11/20/16 14:00 Respiratory Rate 20 11/20/16 14:00 Blood Pressure 152/73 11/20/16 14:00 O2 Sat by Pulse Oximetry (%) 92 L 11/19/16 21:00 Constitutional: Yes: Well Nourished, No Distress, Calm Cardiovascular: Yes: Regular Rate and Rhythm. No: Gallop, Murmur, Rub Respiratory: Yes: Regular, CTA Bilaterally. No: Rales, Rhonchi, Wheezes Gastrointestinal: Yes: Normal Bowel Sounds, Soft. No: Distention, Tenderness Extremities: Yes: WNL Edema: No Labs: CBC, BMP 11/20/16 07:25 11/20/16 07:25 INR, PTT INR 1.08 (0.82-1.09) 11/18/16 10:00 Problem List - Problems (1) Obstructive hydrocephalus Code(s): G91.1 - OBSTRUCTIVE HYDROCEPHALUS (2) Dehydration Code(s): E86.0 - DEHYDRATION (3) Failure to thrive Code(s): [id number] - Qualifiers: Failure to thrive age range: in adult Qualified Code(s): R62.7 - Adult failure to thrive (4) Lung cancer metastatic to bone Code(s): C34.90 - MALIGNANT NEOPLASM OF UNSP PART OF UNSP BRONCHUS OR LUNG C79.51 - SECONDARY MALIGNANT NEOPLASM OF BONE (5) HTN (hypertension) Code(s): I10 - ESSENTIAL (PRIMARY) HYPERTENSION (6) Headache Code(s): R51 - HEADACHE Qualifiers: Headache type: unspecified Headache chronicity pattern: unspecified pattern Intractability: not intractable Qualified Code(s): R51 - Headache (7) Metabolic encephalopathy Code(s): G93.41 - METABOLIC ENCEPHALOPATHY (8) UTI (urinary tract infection) due to Enterococcus Code(s): N39.0 - URINARY TRACT INFECTION, SITE NOT SPECIFIED B95.2 - ENTEROCOCCUS THE CAUSE OF DISEASES CLASSIFIED ELSEWHERE Assessment/Plan (1) Obstructive hydrocephalus secondary to metastasis -received intrathecal methotrexate -oncology to comment on duration of therapy (2) Dehydration Assessment/Plan: -resolved -encourage po intake Code(s): E86.0 - DEHYDRATION (3) Failure to thrive Assessment/Plan: -continue megace at physical therapy -nutritional status improved from admission -continue supplements Code(s): [id number] - Qualifiers: Failure to thrive age range: in adult Qualified Code(s): R62.7 - Adult failure to thrive (4) Lung cancer metastatic to bone Assessment/Plan: -as above Code(s): C34.90 - MALIGNANT NEOPLASM OF UNSP PART OF UNSP BRONCHUS OR LUNG C79.51 - SECONDARY MALIGNANT NEOPLASM OF BONE (5) HTN (hypertension) Assessment/Plan: -continue ramipril Code(s): I10 - ESSENTIAL (PRIMARY) HYPERTENSION (6) Headache Assessment/Plan: -resolved Code(s): R51 - HEADACHE Qualifiers: Headache type: unspecified Headache chronicity pattern: unspecified pattern Intractability: not intractable Qualified Code(s): R51 - Headache (6) Metabolic encephalopathy -secondary to UTI -resolved (7) UTI -s/p full course antibiotics
--- NOTE | 2016-11-20 20:06 | PN ---
Progress Note (short form) - Note Progress Note: Patient seen and examined Remains confused Place--Dr. Cedillo's President--?? Year--2017 S/P L.P with intrathecal Methotrexate. Denies chest pain , SOB, headache , Abdominal complaints Last Vital Signs Temp Pulse Resp BP Pulse Ox 98.3 F 92 H 18 140/79 92 L 11/20/16 17:59 11/20/16 17:59 11/20/16 17:59 11/20/16 17:59 11/19/16 21:00 HEENT: JOSE ROBERTO, EOM Intact Oropharynx: No thrush, No mucositis Cor: RSR, No murmurs, No gallops Lungs: diminished breath sonds bilaterally Abd: Soft, Normal bowel sounds, No organomegaly Ext:No significant edema Skin: No rashes, Integument intact CBC, BMP 11/20/16 07:25 11/20/16 07:25 Current Medications Generic Name Dose Route Start Last Admin Trade Name Freq PRN Reason Stop Dose Admin Dexamethasone Sodium Phosphate 4 mg 11/21/16 06:00 Decadron Injection - IVPB BID@,18 YUE Magnesium Oxide 400 mg 11/14/16 22:00 11/20/16 11:00 Mag-Ox - PO 400 mg BID YUE Administration Nystatin 500,000 units 11/09/16 00:00 11/20/16 17:25 Nystatin Oral Suspension - PO 500,000 units Q6HPO YUE Administration Ondansetron HCl 4 mg 11/07/16 06:07 11/16/16 10:21 Zofran Injection IVPB 4 mg Q6H PRN Administration NAUSEA Pantoprazole Sodium 40 mg 11/16/16 10:00 11/20/16 11:00 Protonix - PO 40 mg DAILY YUE Administration Ramipril 2.5 mg 11/08/16 10:00 11/20/16 11:00 Altace - PO 2.5 mg DAILY YUE Administration Temazepam 15 mg 11/08/16 22:00 11/19/16 21:45 Restoril - PO 15 mg HS YUE Administration Impression: Adenoca of lung, 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 chemotherapy. Goal is to convert to negative cytology and improve glucose and protein to reflect this. Initial treatment to be 2 x per week. If improvement - once weekly. If frequent L. P. 's are required then an Ommaya reservoir will need be placed. 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 Therefore will obtain CT of chest to see if there is easily accessible tissue to biopsy . Patient will need to go to facility and have "satellite" visits for her treatment. She will need intensive rehab.
[2016-11-20] MEDS: TEMAZEPAM 15 MG CAPSULE PO SCH (21:58)
[2016-11-21] MEDS: NYSTATIN 500,000 UNITS/5 ML SUSPENSION PO SCH ×4 (00:03→17:46)
[2016-11-21] MEDS: DEXAMETHASONE SOD PHOSPHATE 4 MG/1 ML VIAL IVPB SCH ×2 (05:33→17:48)
[2016-11-21 08:02] LABS: BASOPHIL 0.2 % (0-2.0); MCH 29.3 pg (25.7-33.7); MCHC 33.4 g/dl (32.0-36.0); MEAN CELL VOLUME 87.7 fl (80-96); MEAN PLT VOLUME 8.2 fl (7.5-11.1); NEUTROPHILS 89.6 % (42.8-82.8); PLATELET COUNT 182 K/MM3 (134-434); RDW 14.6 % (11.6-15.6); WHITE BLOOD COUNT 12.8 K/mm3 (4.0-10.0)
[2016-11-21 08:52] LABS: CALCIUM 8.8 mg/dL (8.5-10.1); COCKROFT - GAULT 46.41; CREATININE 1.1 mg/dL (0.55-1.02); MAGNESIUM 2.1 mg/dL (1.8-2.4); PHOSPHOROUS 2.6 mg/dL (2.5-4.9)
[2016-11-21] MEDS: MAGNESIUM OXIDE 400 MG TABLET (FP) PO SCH ×2 (10:00→22:12)
[2016-11-21] MEDS: PANTOPRAZOLE 40 MG TABLET (FP) PO SCH (10:00)
[2016-11-21] MEDS: RAMIPRIL 2.5 MG CAPSULE (FP) PO SCH (10:00)
--- NOTE | 2016-11-21 11:21 | PN ---
Progress Note, Physician Chief Complaint: Ms Walter is non-verbal today but nods her head when asked if she is feeling good. Shakes head no when asked if she is having cp, sob, n/v. - Current Medication List Current Medications: Active Medications Dexamethasone Sodium Phosphate (Decadron Injection -) 4 mg IVPB BID@,18 [facility] Last Admin: 11/21/16 05:33 Dose: 4 mg Magnesium Oxide (Mag-Ox -) 400 mg PO BID [facility] Last Admin: 11/21/16 10:00 Dose: 400 mg Nystatin (Nystatin Oral Suspension -) 500,000 units PO Q6HPO [facility] Last Admin: 11/21/16 05:33 Dose: 500,000 units Ondansetron HCl (Zofran Injection) 4 mg IVPB Q6H PRN PRN Reason: NAUSEA Last Admin: 11/16/16 10:21 Dose: 4 mg Pantoprazole Sodium (Protonix -) 40 mg PO DAILY [facility] Last Admin: 11/21/16 10:00 Dose: 40 mg Ramipril (Altace -) 2.5 mg PO DAILY [facility] Last Admin: 11/21/16 10:00 Dose: 2.5 mg Temazepam (Restoril -) 15 mg PO HS [facility] Last Admin: 11/20/16 21:58 Dose: 15 mg - Objective Vital Signs: Vital Signs Temperature 98.2 F 11/21/16 05:30 Pulse Rate 81 11/21/16 05:30 Respiratory Rate 16 11/21/16 05:30 Blood Pressure 151/87 11/21/16 05:30 O2 Sat by Pulse Oximetry (%) 95 11/20/16 21:00 Constitutional: Yes: Well Nourished, No Distress, Calm Cardiovascular: Yes: Regular Rate and Rhythm. No: Gallop, Murmur, Rub Respiratory: Yes: Regular, CTA Bilaterally. No: Rales, Rhonchi, Wheezes Gastrointestinal: Yes: Normal Bowel Sounds, Soft. No: Distention, Tenderness Extremities: Yes: WNL Edema: No Labs: CBC, BMP 11/21/16 07:25 11/21/16 07:25 INR, PTT INR 1.08 (0.82-1.09) 11/18/16 10:00 Problem List - Problems (1) Obstructive hydrocephalus Code(s): G91.1 - OBSTRUCTIVE HYDROCEPHALUS (2) Dehydration Code(s): E86.0 - DEHYDRATION (3) Failure to thrive Code(s): [id number] - Qualifiers: Failure to thrive age range: in adult Qualified Code(s): R62.7 - Adult failure to thrive (4) Lung cancer metastatic to bone Code(s): C34.90 - MALIGNANT NEOPLASM OF UNSP PART OF UNSP BRONCHUS OR LUNG C79.51 - SECONDARY MALIGNANT NEOPLASM OF BONE (5) HTN (hypertension) Code(s): I10 - ESSENTIAL (PRIMARY) HYPERTENSION (6) Headache Code(s): R51 - HEADACHE Qualifiers: Headache type: unspecified Headache chronicity pattern: unspecified pattern Intractability: not intractable Qualified Code(s): R51 - Headache (7) Metabolic encephalopathy Code(s): G93.41 - METABOLIC ENCEPHALOPATHY (8) UTI (urinary tract infection) due to Enterococcus Code(s): N39.0 - URINARY TRACT INFECTION, SITE NOT SPECIFIED B95.2 - ENTEROCOCCUS THE CAUSE OF DISEASES CLASSIFIED ELSEWHERE Assessment/Plan (1) Obstructive hydrocephalus secondary to metastasis -received intrathecal methotrexate -continue IT methotrexate twice a week currently (2) Dehydration Assessment/Plan: -resolved -encourage po intake Code(s): E86.0 - DEHYDRATION (3) Failure to thrive Assessment/Plan: -continue megace at physical therapy -continue supplements Code(s): [id number] - Qualifiers: Failure to thrive age range: in adult Qualified Code(s): R62.7 - Adult failure to thrive (4) Lung cancer metastatic to bone Assessment/Plan: -as above -CT scan read reviewed Code(s): C34.90 - MALIGNANT NEOPLASM OF UNSP PART OF UNSP BRONCHUS OR LUNG C79.51 - SECONDARY MALIGNANT NEOPLASM OF BONE (5) HTN (hypertension) Assessment/Plan: -continue ramipril Code(s): I10 - ESSENTIAL (PRIMARY) HYPERTENSION (6) Headache Assessment/Plan: -resolved Code(s): R51 - HEADACHE Qualifiers: Headache type: unspecified Headache chronicity pattern: unspecified pattern Intractability: not intractable Qualified Code(s): R51 - Headache (6) Metabolic encephalopathy -continue to monitor -mental status appears to be declining again today (7) UTI -s/p full course antibiotics
--- NOTE | 2016-11-21 19:02 | PN ---
Progress Note (short form) - Note Progress Note: patient seen and examined confused Last Vital Signs Temp Pulse Resp BP Pulse Ox 98.4 F 72 20 141/91 97 11/21/16 14:00 11/21/16 14:00 11/21/16 14:00 11/21/16 09:07 11/21/16 09:00 Cor: RSR, No murmurs, No gallops Lungs: Clear to P&A Abd: Soft, Normal bowel sounds, No organomegaly Ext:No significant edema Abnormal Lab Results 11/21/16 11/21/16 07:25 07:25 WBC 12.8 H Neutrophils % 89.6 H Lymphocytes % 4.7 L Sodium 134 L BUN 31 H Creatinine 1.1 H Random Glucose 151 H Active Medications Generic Name Dose Route Start Last Admin Trade Name Freq PRN Reason Stop Dose Admin Dexamethasone Sodium Phosphate 4 mg 11/21/16 06:00 11/21/16 17:48 Decadron Injection - IVPB 4 mg BID@,18 YUE Administration IV Flush 10 ml 11/21/16 12:46 Mau-Cath Flush IVPUSH PRN PRN IV MEDS Magnesium Oxide 400 mg 11/14/16 22:00 11/21/16 10:00 Mag-Ox - PO 400 mg BID YUE Administration Nystatin 500,000 units 11/09/16 00:00 11/21/16 17:46 Nystatin Oral Suspension - PO 500,000 units Q6HPO YUE Administration Ondansetron HCl 4 mg 11/07/16 06:07 11/16/16 10:21 Zofran Injection IVPB 4 mg Q6H PRN Administration NAUSEA Pantoprazole Sodium 40 mg 11/16/16 10:00 11/21/16 10:00 Protonix - PO 40 mg DAILY YUE Administration Ramipril 2.5 mg 11/08/16 10:00 11/21/16 10:00 Altace - PO 2.5 mg DAILY YUE Administration Temazepam 15 mg 11/08/16 22:00 11/20/16 21:58 Restoril - PO 15 mg HS YUE Administration A/P 71 y/o female with metastatic lung cancer, adeno ca had been on carbo/alimta and more recently, tarceva, comes in with headache and failure to thrive concerning for progressive disease 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 rosa palumbo send T790M mutation testing--discussed with dr. jones will discuss with social insurance specialist/family
[2016-11-21] MEDS: TEMAZEPAM 15 MG CAPSULE PO SCH (22:12)
[2016-11-22] MEDS: NYSTATIN 500,000 UNITS/5 ML SUSPENSION PO SCH ×4 (01:06→18:04)
[2016-11-22] MEDS: PORTA CATH FLUSH 10 ML IVPUSH PRN (05:25)
[2016-11-22] MEDS: DEXAMETHASONE SOD PHOSPHATE 4 MG/1 ML VIAL IVPB SCH ×2 (05:25→18:04)
[2016-11-22 08:13] LABS: CALCIUM 8.8 mg/dL (8.5-10.1); COCKROFT - GAULT 42.5425; CREATININE 1.2 mg/dL (0.55-1.02); MAGNESIUM 2.2 mg/dL (1.8-2.4); PHOSPHOROUS 2.9 mg/dL (2.5-4.9)
[2016-11-22] MEDS: MAGNESIUM OXIDE 400 MG TABLET (FP) PO SCH ×2 (10:29→21:57)
[2016-11-22] MEDS: PANTOPRAZOLE 40 MG TABLET (FP) PO SCH (10:29)
[2016-11-22] MEDS: RAMIPRIL 2.5 MG CAPSULE (FP) PO SCH (10:29)
[2016-11-22 11:35] LABS: BASOPHIL 0.3 % (0-2.0); MCHC 33.3 g/dl (32.0-36.0); MEAN PLT VOLUME 8.7 fl (7.5-11.1); NEUTROPHILS 93.9 % (42.8-82.8); PLATELET COUNT 180 K/MM3 (134-434); RDW 14.5 % (11.6-15.6); WHITE BLOOD COUNT 15.1 K/mm3 (4.0-10.0)
--- NOTE | 2016-11-22 15:41 | PN ---
Progress Note, Physician Chief Complaint: Ms Walter says she is feeling fine. Denies cp, sob, n/v. Very minimal interaction today - Current Medication List Current Medications: Active Medications Dexamethasone Sodium Phosphate (Decadron Injection -) 4 mg IVPB BID@ [facility] Last Admin: 11/22/16 05:25 Dose: 4 mg IV Flush (Mau-Cath Flush) 10 ml IVPUSH PRN PRN PRN Reason: IV MEDS Last Admin: 11/22/16 05:25 Dose: 10 ml Magnesium Oxide (Mag-Ox -) 400 mg PO BID [facility] Last Admin: 11/22/16 10:29 Dose: 400 mg Nystatin (Nystatin Oral Suspension -) 500,000 units PO Q6HPO [facility] Last Admin: 11/22/16 05:25 Dose: 500,000 units Ondansetron HCl (Zofran Injection) 4 mg IVPB Q6H PRN PRN Reason: NAUSEA Last Admin: 11/16/16 10:21 Dose: 4 mg Pantoprazole Sodium (Protonix -) 40 mg PO DAILY [facility] Last Admin: 11/22/16 10:29 Dose: 40 mg Ramipril (Altace -) 2.5 mg PO DAILY [facility] Last Admin: 11/22/16 10:29 Dose: 2.5 mg - Objective Vital Signs: Vital Signs Temperature 98.0 F 11/22/16 14:00 Pulse Rate 107 H 11/22/16 14:00 Respiratory Rate 20 11/22/16 14:00 Blood Pressure 146/86 11/22/16 14:00 O2 Sat by Pulse Oximetry (%) 96 11/21/16 21:00 Constitutional: Yes: Well Nourished, No Distress, Calm Cardiovascular: Yes: Regular Rate and Rhythm. No: Gallop, Murmur, Rub Respiratory: Yes: Regular, CTA Bilaterally. No: Rales, Rhonchi, Wheezes Gastrointestinal: Yes: Normal Bowel Sounds, Soft. No: Distention, Tenderness Extremities: Yes: WNL Edema: No Labs: CBC, BMP 11/22/16 06:10 11/22/16 06:10 INR, PTT INR 1.08 (0.82-1.09) 11/18/16 10:00 Problem List - Problems (1) Obstructive hydrocephalus Code(s): G91.1 - OBSTRUCTIVE HYDROCEPHALUS (2) Dehydration Code(s): E86.0 - DEHYDRATION (3) Failure to thrive Code(s): [id number] - Qualifiers: Failure to thrive age range: in adult Qualified Code(s): R62.7 - Adult failure to thrive (4) Lung cancer metastatic to bone Code(s): C34.90 - MALIGNANT NEOPLASM OF UNSP PART OF UNSP BRONCHUS OR LUNG C79.51 - SECONDARY MALIGNANT NEOPLASM OF BONE (5) HTN (hypertension) Code(s): I10 - ESSENTIAL (PRIMARY) HYPERTENSION (6) Headache Code(s): R51 - HEADACHE Qualifiers: Headache type: unspecified Headache chronicity pattern: unspecified pattern Intractability: not intractable Qualified Code(s): R51 - Headache (7) Metabolic encephalopathy Code(s): G93.41 - METABOLIC ENCEPHALOPATHY (8) UTI (urinary tract infection) due to Enterococcus Code(s): N39.0 - URINARY TRACT INFECTION, SITE NOT SPECIFIED B95.2 - ENTEROCOCCUS THE CAUSE OF DISEASES CLASSIFIED ELSEWHERE Assessment/Plan (1) Obstructive hydrocephalus secondary to metastasis -received intrathecal methotrexate -continue IT methotrexate twice a week currently, planning for Saturday (2) Dehydration Assessment/Plan: -resolved -encourage po intake Code(s): E86.0 - DEHYDRATION (3) Failure to thrive Assessment/Plan: -continue megace at physical therapy -continue supplements Code(s): [id number] - Qualifiers: Failure to thrive age range: in adult Qualified Code(s): R62.7 - Adult failure to thrive (4) Lung cancer metastatic to bone Assessment/Plan: -as above -CT scan read reviewed Code(s): C34.90 - MALIGNANT NEOPLASM OF UNSP PART OF UNSP BRONCHUS OR LUNG C79.51 - SECONDARY MALIGNANT NEOPLASM OF BONE (5) HTN (hypertension) Assessment/Plan: -continue ramipril Code(s): I10 - ESSENTIAL (PRIMARY) HYPERTENSION (6) Headache Assessment/Plan: -resolved Code(s): R51 - HEADACHE Qualifiers: Headache type: unspecified Headache chronicity pattern: unspecified pattern Intractability: not intractable Qualified Code(s): R51 - Headache (6) Metabolic encephalopathy -mental status slightly improved but still not as good as last week -also with leukocytosis -will consult ID again to evaluate since receiving intrathecal injection (7) Leukocytosis -ID consult
--- NOTE | 2016-11-22 22:37 | PN ---
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 rosa palumbo send T790M mutation testing--discussed with dr. jones will discuss with medical social worker/family regarding [place]
[2016-11-23] MEDS: NYSTATIN 500,000 UNITS/5 ML SUSPENSION PO SCH ×4 (00:27→18:04)
[2016-11-23] MEDS ORDERED: PT OWN MED DRAWER 7, Y5N ONE (06:17)
[2016-11-23] MEDS: DEXAMETHASONE SOD PHOSPHATE 4 MG/1 ML VIAL IVPB SCH ×2 (06:20→18:05)
[2016-11-23] MEDS: PORTA CATH FLUSH 10 ML IVPUSH PRN (06:21)
[2016-11-23 07:30] LABS: MCH 29.6 pg (25.7-33.7); MCHC 34.3 g/dl (32.0-36.0); MEAN CELL VOLUME 86.5 fl (80-96); MEAN PLT VOLUME 8.2 fl (7.5-11.1); PLATELET COUNT 170 K/MM3 (134-434); RDW 14.7 % (11.6-15.6); WHITE BLOOD COUNT 13.9 K/mm3 (4.0-10.0)
[2016-11-23 08:07] LABS: CALCIUM 8.4 mg/dL (8.5-10.1); COCKROFT - GAULT 51.051; PHOSPHOROUS 2.5 mg/dL (2.5-4.9)
[2016-11-23] MEDS: MAGNESIUM OXIDE 400 MG TABLET (FP) PO SCH ×2 (09:15→21:58)
[2016-11-23] MEDS: RANITIDINE HCL 150 MG TABLET (FP) PO SCH ×2 (09:16→21:58)
[2016-11-23] MEDS: RAMIPRIL 2.5 MG CAPSULE (FP) PO SCH (09:16)
[2016-11-23 10:03] LABS: PLATELET ESTIMATE ADEQUATE (NORMAL)
--- NOTE | 2016-11-23 11:17 | PN ---
Progress Note (short form) - Note Progress Note: patient seen and examined confused pleasant Last Vital Signs Temp Pulse Resp BP Pulse Ox 98.3 F 71 20 152/76 97 11/23/16 08:17 11/23/16 08:17 11/23/16 08:17 11/23/16 08:11/23/16 09:00 Cor: RSR, No murmurs, No gallops Lungs: Clear to P&A Abd: Soft, Normal bowel sounds, No organomegaly Ext:No significant edema Abnormal Lab Results 11/22/16 11/23/16 11/23/16 06:10 07:00 07:00 WBC 15.1 H 13.9 H Neutrophils % 93.9 H 95.0 H Lymphocytes % 3.3 L D 3.0 L Monocytes % 2.5 L 2.0 L BUN 34 H Random Glucose 147 H Calcium 8.4 L Home Medication List Medication Instructions Recorded Confirmed Type Atenolol 50 mg PO DAILY 11/07/16 11/07/16 History Oxycodone HCl 5 mg PO Q4HWA PRN 11/07/16 11/07/16 History Ramipril 2.5 mg PO DAILY 11/07/16 11/07/16 History Active Medications Generic Name Dose Route Start Last Admin Trade Name Freq PRN Reason Stop Dose Admin Dexamethasone Sodium Phosphate 4 mg 11/21/16 06:00 11/23/16 06:20 Decadron Injection - IVPB 4 mg BID@,18 YUE Administration IV Flush 10 ml 11/21/16 12:46 11/23/16 06:21 Mau-Cath Flush IVPUSH 10 ml PRN PRN Administration IV MEDS Magnesium Oxide 400 mg 11/14/16 22:00 11/23/16 09:15 Mag-Ox - PO 400 mg BID YUE Administration Methotrexate Sodium 12 mg 11/23/16 09:00 Mexate Injection - IT 11/23/16 09:01 ONCE ONE Nystatin 500,000 units 11/09/16 00:00 11/23/16 06:20 Nystatin Oral Suspension - PO Not Given Q6HPO YUE Ondansetron HCl 4 mg 11/07/16 06:07 11/16/16 10:21 Zofran Injection IVPB 4 mg Q6H PRN Administration NAUSEA Ramipril 2.5 mg 11/08/16 10:00 11/23/16 09:16 Altace - PO 2.5 mg DAILY YUE Administration Ranitidine HCl 150 mg 11/23/16 10:00 11/23/16 09:16 Zantac - PO 150 mg BID YUE Administration A/P 71 y/o female with metastatic lung cancer, adeno ca had been on carbo/alimta and more recently, tarceva, comes in with headache and failure to thrive concerning for progressive disease 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 lee T790M mutation testing--sent left message for daughter discussed with
--- NOTE | 2016-11-23 12:12 | PN ---
Progress Note, Physician Chief Complaint: Ms Walter says she is feeling fine. Denies cp, sob, n/v. - Current Medication List Current Medications: Active Medications Dexamethasone Sodium Phosphate (Decadron Injection -) 4 mg IVPB BID@18 [facility] Last Admin: 11/23/16 06:20 Dose: 4 mg IV Flush (Mau-Cath Flush) 10 ml IVPUSH PRN PRN PRN Reason: IV MEDS Last Admin: 11/23/16 06:21 Dose: 10 ml Magnesium Oxide (Mag-Ox -) 400 mg PO BID [facility] Last Admin: 11/23/16 09:15 Dose: 400 mg Methotrexate Sodium (Mexate Injection -) 12 mg IT ONCE ONE Stop: 11/23/16 13:01 Nystatin (Nystatin Oral Suspension -) 500,000 units PO Q6HPO [facility] Last Admin: 11/23/16 11:41 Dose: 500,000 units Ondansetron HCl (Zofran Injection) 4 mg IVPB Q6H PRN PRN Reason: NAUSEA Last Admin: 11/16/16 10:21 Dose: 4 mg Ramipril (Altace -) 2.5 mg PO DAILY [facility] Last Admin: 11/23/16 09:16 Dose: 2.5 mg Ranitidine HCl (Zantac -) 150 mg PO BID [facility] Last Admin: 11/23/16 09:16 Dose: 150 mg - Objective Vital Signs: Vital Signs Temperature 98.3 F 11/23/16 08:17 Pulse Rate 71 11/23/16 08:17 Respiratory Rate 20 11/23/16 08:17 Blood Pressure 152/76 11/23/16 08:17 O2 Sat by Pulse Oximetry (%) 97 11/23/16 09:00 Constitutional: Yes: Well Nourished, No Distress, Calm Cardiovascular: Yes: Regular Rate and Rhythm. No: Gallop, Murmur, Rub Respiratory: Yes: Regular, CTA Bilaterally. No: Rales, Rhonchi, Wheezes Gastrointestinal: Yes: Normal Bowel Sounds, Soft. No: Distention, Tenderness Extremities: Yes: WNL Edema: No Labs: CBC, BMP 11/23/16 07:00 11/23/16 07:00 INR, PTT INR 1.08 (0.82-1.09) 11/18/16 10:00 Problem List - Problems (1) Obstructive hydrocephalus Code(s): G91.1 - OBSTRUCTIVE HYDROCEPHALUS (2) Dehydration Code(s): E86.0 - DEHYDRATION (3) Failure to thrive Code(s): [id number] - Qualifiers: Failure to thrive age range: in adult Qualified Code(s): R62.7 - Adult failure to thrive (4) Lung cancer metastatic to bone Code(s): C34.90 - MALIGNANT NEOPLASM OF UNSP PART OF UNSP BRONCHUS OR LUNG C79.51 - SECONDARY MALIGNANT NEOPLASM OF BONE (5) HTN (hypertension) Code(s): I10 - ESSENTIAL (PRIMARY) HYPERTENSION (6) Headache Code(s): R51 - HEADACHE Qualifiers: Headache type: unspecified Headache chronicity pattern: unspecified pattern Intractability: not intractable Qualified Code(s): R51 - Headache (7) Metabolic encephalopathy Code(s): G93.41 - METABOLIC ENCEPHALOPATHY (8) UTI (urinary tract infection) due to Enterococcus Code(s): N39.0 - URINARY TRACT INFECTION, SITE NOT SPECIFIED B95.2 - ENTEROCOCCUS THE CAUSE OF DISEASES CLASSIFIED ELSEWHERE Assessment/Plan (1) Obstructive hydrocephalus secondary to metastasis -received intrathecal methotrexate -continue IT methotrexate twice a week currently, planning for today (2) Dehydration Assessment/Plan: -resolved -encourage po intake Code(s): E86.0 - DEHYDRATION (3) Failure to thrive Assessment/Plan: -continue megace at physical therapy -continue supplements Code(s): [id number] - Qualifiers: Failure to thrive age range: in adult Qualified Code(s): R62.7 - Adult failure to thrive (4) Lung cancer metastatic to bone Assessment/Plan: -as above -CT scan read reviewed Code(s): C34.90 - MALIGNANT NEOPLASM OF UNSP PART OF UNSP BRONCHUS OR LUNG C79.51 - SECONDARY MALIGNANT NEOPLASM OF BONE (5) HTN (hypertension) Assessment/Plan: -continue ramipril Code(s): I10 - ESSENTIAL (PRIMARY) HYPERTENSION (6) Headache Assessment/Plan: -resolved Code(s): R51 - HEADACHE Qualifiers: Headache type: unspecified Headache chronicity pattern: unspecified pattern Intractability: not intractable Qualified Code(s): R51 - Headache (6) Metabolic encephalopathy -improved today (7) Leukocytosis -case d/w Dr Grace -suspect this is secondary to decadron -however considering getting repeated LPs for IT methotrexate, will have ID evaluate as well
[2016-11-23] MEDS ORDERED: METHOTREXATE SODIUM/PF 25 MG/ML VIAL IT ONE (13:00)
[2016-11-23 15:54] LABS: GLUCOSE,CSF 42 mg/dL (50-80)
--- NOTE | 2016-11-23 15:59 | PN ---
Progress Note (short form) - Note Progress Note: asked to f/u leukocytosis just returned from IT MTX injection awake nad Vital Signs Period Temp Pulse Resp BP Sys/Carlos Pulse Ox Last 24 Hr 98.3 F-99 F 71-114 20-20 116-152/60-86 95-97 cor-rrr lungs clear abd soft,nt ext no edema CBC, BMP 11/23/16 07:00 11/23/16 07:00 csf gram stain negative cell count pending Microbiology 11/23/16 13:40 Cerebral Spinal Fluid - Lumbar Puncture Gram Stain - Final 11/10/16 06:00 Urine - Urine - Catheterized Urine Culture - Final Enterococcus Faecalis Staphylococcus Warneri 11/09/16 21:40 Blood - Peripheral Venous Blood Culture - Final NO GROWTH AFTER 5 DAYS INCUBATION 11/09/16 21:40 Blood - Peripheral Venous Blood Culture - Final NO GROWTH AFTER 5 DAYS INCUBATION 11/12/16 13:00 Cerebral Spinal Fluid - Lumbar Puncture Gram Stain - Final 11/12/16 13:00 Cerebral Spinal Fluid - Lumbar Puncture CSF Culture - Final NO GROWTH AFTER 48 HOURS INCUBATION Current Medications Dexamethasone Sodium Phosphate (Decadron Injection -) 4 mg IVPB BID@ [facility] Last Admin: 11/23/16 06:20 Dose: 4 mg IV Flush (Mau-Cath Flush) 10 ml IVPUSH PRN PRN PRN Reason: IV MEDS Last Admin: 11/23/16 06:21 Dose: 10 ml Magnesium Oxide (Mag-Ox -) 400 mg PO BID [facility] Last Admin: 11/23/16 09:15 Dose: 400 mg Nystatin (Nystatin Oral Suspension -) 500,000 units PO Q6HPO [facility] Last Admin: 11/23/16 11:41 Dose: 500,000 units Ondansetron HCl (Zofran Injection) 4 mg IVPB Q6H PRN PRN Reason: NAUSEA Last Admin: 11/16/16 10:21 Dose: 4 mg Ramipril (Altace -) 2.5 mg PO DAILY [facility] Last Admin: 11/23/16 09:16 Dose: 2.5 mg Ranitidine HCl (Zantac -) 150 mg PO BID [facility] Last Admin: 11/23/16 09:16 Dose: 150 mg a/p leukocytosis- suspect secondary to steroids metastatic adenoca - per oncology observe off abx f/u csf results
[2016-11-23 16:53] LABS: CSF APPEARANCE CLEAR; CSF COLOR COLORLESS
[2016-11-23 16:54] LABS: CSF RBC 4 /mm3
[2016-11-24] MEDS: NYSTATIN 500,000 UNITS/5 ML SUSPENSION PO SCH ×4 (00:17→17:27)
[2016-11-24] MEDS: DEXAMETHASONE SOD PHOSPHATE 4 MG/1 ML VIAL IVPB SCH ×2 (05:26→17:26)
[2016-11-24 08:28] LABS: BASOPHIL 0.1 % (0-2.0); MCH 30.1 pg (25.7-33.7); MCHC 34.7 g/dl (32.0-36.0); MEAN CELL VOLUME 86.8 fl (80-96); MEAN PLT VOLUME 8.5 fl (7.5-11.1); NEUTROPHILS 89.8 % (42.8-82.8); PLATELET COUNT 166 K/MM3 (134-434); RDW 14.6 % (11.6-15.6); WHITE BLOOD COUNT 12.9 K/mm3 (4.0-10.0)
[2016-11-24 08:47] LABS: ALBUMIN 2.7 g/dl (3.4-5.0); ANION GAP 12 (8-16); CALCIUM 8.3 mg/dL (8.5-10.1); CO2 27 mmol/L (21-32); COCKROFT - GAULT 56.7205; CREATININE 0.9 mg/dL (0.55-1.02); GLUCOSE,RANDOM 144 mg/dL (74-106); PHOSPHOROUS 2.8 mg/dL (2.5-4.9); SGOT/AST 13 U/L (15-37)
[2016-11-24 08:50] LABS: ALK PHOS 66 U/L (45-117); BILIRUBIN,TOTAL 0.9 mg/dL (0.2-1.0); MAGNESIUM 1.8 mg/dL (1.8-2.4); SGPT/ALT 37 U/L (12-78); TOT PROT 5.4 g/dl (6.4-8.2)
[2016-11-24 08:55] LABS: INR 1.01 (0.82-1.09); PROTHROMBIN TIME (PATIENT) 11.1 SEC (9.98-11.88)
[2016-11-24] MEDS: RAMIPRIL 2.5 MG CAPSULE (FP) PO SCH (09:21)
[2016-11-24] MEDS: MAGNESIUM OXIDE 400 MG TABLET (FP) PO SCH ×2 (09:21→22:30)
[2016-11-24] MEDS: RANITIDINE HCL 150 MG TABLET (FP) PO SCH ×2 (09:21→22:30)
--- NOTE | 2016-11-24 10:02 | PN ---
Progress Note, Physician History of Present Illness: Denies any complaints, appears stoic, but answers questions. - Current Medication List Current Medications: Active Medications Dexamethasone Sodium Phosphate (Decadron Injection -) 4 mg IVPB BID@,18 [facility] Last Admin: 11/24/16 05:26 Dose: 4 mg IV Flush (Mau-Cath Flush) 10 ml IVPUSH PRN PRN PRN Reason: IV MEDS Last Admin: 11/23/16 06:21 Dose: 10 ml Magnesium Oxide (Mag-Ox -) 400 mg PO BID [facility] Last Admin: 11/24/16 09:21 Dose: 400 mg Nystatin (Nystatin Oral Suspension -) 500,000 units PO Q6HPO [facility] Last Admin: 11/24/16 05:26 Dose: Not Given Ondansetron HCl (Zofran Injection) 4 mg IVPB Q6H PRN PRN Reason: NAUSEA Last Admin: 11/16/16 10:21 Dose: 4 mg Ramipril (Altace -) 2.5 mg PO DAILY [facility] Last Admin: 11/24/16 09:21 Dose: 2.5 mg Ranitidine HCl (Zantac -) 150 mg PO BID [facility] Last Admin: 11/24/16 09:21 Dose: 150 mg - Objective Vital Signs: Vital Signs Temperature 99.0 F 11/24/16 06:00 Pulse Rate 77 11/24/16 06:00 Respiratory Rate 18 11/24/16 06:00 Blood Pressure 143/93 11/24/16 06:00 O2 Sat by Pulse Oximetry (%) 96 11/23/16 21:00 Constitutional: Yes: No Distress, Calm Neck: Yes: Supple, Trachea Midline Cardiovascular: Yes: Regular Rate and Rhythm, S1, S2. No: Murmur Respiratory: Yes: Regular, CTA Bilaterally, Other (port right chest) Gastrointestinal: Yes: Normal Bowel Sounds, Soft. No: Distention, Tenderness Edema: No Neurological: Yes: Confusion Labs: CBC, BMP 11/24/16 07:30 11/24/16 07:30 INR, PTT INR 1.01 (0.82-1.09) 11/24/16 07:30 Assessment/Plan All Active Problems Altered mental status (Acute) Dehydration (Acute) Failure to thrive (Acute) Lung cancer metastatic to bone (Acute) Metabolic encephalopathy (Acute) Obstructive hydrocephalus (Acute) UTI (urinary tract infection) due to Enterococcus (Acute) Abdominal pain (Acute) Acute kidney injury (Acute) Cholelithiasis (Acute) HTN (hypertension) (Acute) Headache (Acute) Hypothyroid (Acute) Ileus (Acute) Lactic acidosis (Acute) Metastatic adenocarcinoma (Acute) Vomiting (Acute) -continuing on intra-thecal methotrexate and IV decadron for leptomeningeal metastasis
--- NOTE | 2016-11-24 11:51 | PN ---
Progress Note (short form) - Note Progress Note: patient seen and examined confused pleasant Last Vital Signs Temp Pulse Resp BP Pulse Ox 99.0 F 92 H 18 143/93 97 11/24/16 06:00 11/24/16 10:01 11/24/16 06:00 11/24/16 06:00 11/24/16 10:01 Cor: RSR, No murmurs, No gallops Lungs: Clear to P&A Abd: Soft, Normal bowel sounds, No organomegaly Ext:No significant edema Abnormal Lab Results 11/23/16 11/24/16 11/24/16 14:45 07:30 07:30 WBC 12.9 H Neutrophils % 89.8 H Lymphocytes % 5.7 L D PTT (Actin FS) Sodium 135 L Chloride 96 L BUN 33 H Random Glucose 144 H Calcium 8.3 L AST 13 L Total Protein 5.4 L Albumin 2.7 L D CSF Glucose 42 L CSF Total Protein 78 H 11/24/16 07:30 WBC Neutrophils % Lymphocytes % PTT (Actin FS) 24.0 L Sodium Chloride BUN Random Glucose Calcium AST Total Protein Albumin CSF Glucose CSF Total Protein Home Medication List Medication Instructions Recorded Confirmed Type Atenolol 50 mg PO DAILY 11/07/16 11/07/16 History Oxycodone HCl 5 mg PO Q4HWA PRN 11/07/16 11/07/16 History Ramipril 2.5 mg PO DAILY 11/07/16 11/07/16 History Active Medications Generic Name Dose Route Start Last Admin Trade Name Freq PRN Reason Stop Dose Admin Dexamethasone Sodium Phosphate 4 mg 11/21/16 06:00 11/24/16 05:26 Decadron Injection - IVPB 4 mg BID@ YUE Administration IV Flush 10 ml 11/21/16 12:46 11/23/16 06:21 Mau-Cath Flush IVPUSH 10 ml PRN PRN Administration IV MEDS Magnesium Oxide 400 mg 11/14/16 22:00 11/24/16 09:21 Mag-Ox - PO 400 mg BID YUE Administration Nystatin 500,000 units 11/09/16 00:00 11/24/16 05:26 Nystatin Oral Suspension - PO Not Given Q6HPO YUE Ondansetron HCl 4 mg 11/07/16 06:07 11/16/16 10:21 Zofran Injection IVPB 4 mg Q6H PRN Administration NAUSEA Ramipril 2.5 mg 11/08/16 10:00 11/24/16 09:21 Altace - PO 2.5 mg DAILY YUE Administration Ranitidine HCl 150 mg 11/23/16 10:00 11/24/16 09:21 Zantac - PO 150 mg BID YUE Administration A/P 71 y/o female with metastatic lung cancer, adeno ca had been on carbo/alimta and more recently, tarceva, comes in with headache and failure to thrive concerning for progressive disease 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 lee T790M mutation testing--sent leucovorin 10mg PO Q6h x 2 doses plan on 3rd intrathecal on saturday
[2016-11-24] MEDS: LEUCOVORIN CALCIUM 5 MG TABLET PO SCH ×2 (17:27→22:30)
[2016-11-25] MEDS: NYSTATIN 500,000 UNITS/5 ML SUSPENSION PO SCH ×4 (00:10→17:57)
[2016-11-25] MEDS ORDERED: PT OWN MED DRAWER 7, Y5N ONE (05:57)
[2016-11-25] MEDS: DEXAMETHASONE SOD PHOSPHATE 4 MG/1 ML VIAL IVPB SCH ×2 (06:07→17:57)
[2016-11-25 07:50] LABS: BASOPHIL 0.2 % (0-2.0); EOSINOPHIL 0.1 % (0-4.5); MCH 29.7 pg (25.7-33.7); MCHC 34.2 g/dl (32.0-36.0); NEUTROPHILS 92.2 % (42.8-82.8); PLATELET COUNT 156 K/MM3 (134-434); RDW 14.6 % (11.6-15.6); WHITE BLOOD COUNT 12.7 K/mm3 (4.0-10.0)
[2016-11-25 08:28] LABS: CALCIUM 8.5 mg/dL (8.5-10.1)
[2016-11-25 08:34] LABS: ALBUMIN 2.8 g/dl (3.4-5.0); BILIRUBIN,TOTAL 1.1 mg/dL (0.2-1.0); COCKROFT - GAULT 51.051; TOT PROT 5.7 g/dl (6.4-8.2)
[2016-11-25] MEDS: MAGNESIUM OXIDE 400 MG TABLET (FP) PO SCH ×2 (09:48→22:07)
[2016-11-25] MEDS: RAMIPRIL 2.5 MG CAPSULE (FP) PO SCH (09:49)
[2016-11-25] MEDS: RANITIDINE HCL 150 MG TABLET (FP) PO SCH ×2 (09:49→22:07)
--- NOTE | 2016-11-25 10:48 | PN ---
Progress Note, Physician History of Present Illness: Patient sleeping this morning. Receiving decadron, to get intrathecal methotrexate tomorrow. No new issues brought up by nursing staff. - Current Medication List Current Medications: Active Medications Dexamethasone Sodium Phosphate (Decadron Injection -) 4 mg IVPB BID@06,18 [facility] Last Admin: 11/25/16 06:07 Dose: 4 mg IV Flush (Mau-Cath Flush) 10 ml IVPUSH PRN PRN PRN Reason: IV MEDS Last Admin: 11/23/16 06:21 Dose: 10 ml Magnesium Oxide (Mag-Ox -) 400 mg PO BID [facility] Last Admin: 11/25/16 09:48 Dose: 400 mg Nystatin (Nystatin Oral Suspension -) 500,000 units PO Q6HPO [facility] Last Admin: 11/25/16 06:40 Dose: Not Given Ondansetron HCl (Zofran Injection) 4 mg IVPB Q6H PRN PRN Reason: NAUSEA Last Admin: 11/16/16 10:21 Dose: 4 mg Ramipril (Altace -) 2.5 mg PO DAILY [facility] Last Admin: 11/25/16 09:49 Dose: 2.5 mg Ranitidine HCl (Zantac -) 150 mg PO BID [facility] Last Admin: 11/25/16 09:49 Dose: 150 mg - Objective Vital Signs: Vital Signs Temperature 98.6 F 11/25/16 07:57 Pulse Rate 77 11/25/16 07:57 Respiratory Rate 18 11/25/16 07:57 Blood Pressure 152/95 11/25/16 07:57 O2 Sat by Pulse Oximetry (%) 97 11/24/16 21:00 Constitutional: Yes: No Distress, Calm Cardiovascular: Yes: Regular Rate and Rhythm, S1, S2. No: Murmur Respiratory: Yes: Regular, Diminished, Other (port right chest). No: Rales, Rhonchi, Wheezes Gastrointestinal: Yes: Normal Bowel Sounds, Soft. No: Distention, Tenderness Edema: No Labs: CBC, BMP 11/25/16 07:00 11/25/16 07:00 INR, PTT INR 1.01 (0.82-1.09) 11/24/16 07:30 Assessment/Plan All Active Problems Altered mental status (Acute) Dehydration (Acute) Failure to thrive (Acute) Lung cancer metastatic to bone (Acute) Metabolic encephalopathy (Acute) Obstructive hydrocephalus (Acute) UTI (urinary tract infection) due to Enterococcus (Acute) Abdominal pain (Acute) Acute kidney injury (Acute) Cholelithiasis (Acute) HTN (hypertension) (Acute) Headache (Acute) Hypothyroid (Acute) Ileus (Acute) Lactic acidosis (Acute) Metastatic adenocarcinoma (Acute) Vomiting (Acute) -cont same treatment
--- NOTE | 2016-11-25 16:32 | PN ---
Progress Note (short form) - Note Progress Note: patient seen and examined confused lethargic Last Vital Signs Temp Pulse Resp BP Pulse Ox 98.1 F 109 H 20 136/78 96 11/25/16 13:55 11/25/16 13:55 11/25/16 13:55 11/25/16 13:55 11/25/16 09:00 Cor: RSR, No murmurs, No gallops Lungs: Clear to P&A Abd: Soft, Normal bowel sounds, No organomegaly Ext:No significant edema Abnormal Lab Results 11/25/16 11/25/16 07:00 07:00 WBC 12.7 H Neutrophils % 92.2 H Lymphocytes % 4.0 L D Monocytes % 3.5 L Sodium 134 L Chloride 96 L BUN 34 H Random Glucose 163 H Total Bilirubin 1.1 H D AST 11 L Total Protein 5.7 L Albumin 2.8 L Active Medications Generic Name Dose Route Start Last Admin Trade Name Freq PRN Reason Stop Dose Admin Dexamethasone Sodium Phosphate 4 mg 11/21/16 06:00 11/25/16 06:07 Decadron Injection - IVPB 4 mg BID@18 YUE Administration IV Flush 10 ml 11/21/16 12:46 11/23/16 06:21 Mau-Cath Flush IVPUSH 10 ml PRN PRN Administration IV MEDS Magnesium Oxide 400 mg 11/14/16 22:00 11/25/16 09:48 Mag-Ox - PO 400 mg BID YUE Administration Nystatin 500,000 units 11/09/16 00:00 11/25/16 12:13 Nystatin Oral Suspension - PO Not Given Q6HPO YUE Ondansetron HCl 4 mg 11/07/16 06:07 11/16/16 10:21 Zofran Injection IVPB 4 mg Q6H PRN Administration NAUSEA Ramipril 2.5 mg 11/08/16 10:00 11/25/16 09:49 Altace - PO 2.5 mg DAILY YUE Administration Ranitidine HCl 150 mg 11/23/16 10:00 11/25/16 09:49 Zantac - PO 150 mg BID YUE Administration A/P 71 y/o female with metastatic lung cancer, adeno ca had been on carbo/alimta and more recently, tarceva, comes in with headache and failure to thrive concerning for progressive disease 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 lee T790M mutation testing--sent plan on intrathecal on saturday
[2016-11-25] MEDS: PORTA CATH FLUSH 10 ML IVPUSH PRN (18:53)
[2016-11-26] MEDS ORDERED: PT OWN MED DRAWER 7, Y5N ONE ×2 (05:39→06:42)
[2016-11-26] MEDS: NYSTATIN 500,000 UNITS/5 ML SUSPENSION PO SCH ×4 (05:53→18:05)
[2016-11-26] MEDS: DEXAMETHASONE SOD PHOSPHATE 4 MG/1 ML VIAL IVPB SCH ×2 (05:53→18:05)
[2016-11-26 07:28] LABS: BASOPHIL 0.1 % (0-2.0); MCH 29.8 pg (25.7-33.7); MCHC 34.3 g/dl (32.0-36.0); MEAN CELL VOLUME 86.7 fl (80-96); MEAN PLT VOLUME 8.3 fl (7.5-11.1); NEUTROPHILS 93.6 % (42.8-82.8); PLATELET COUNT 157 K/MM3 (134-434); RDW 14.6 % (11.6-15.6); WHITE BLOOD COUNT 14.7 K/mm3 (4.0-10.0)
[2016-11-26 08:32] LABS: ALBUMIN 2.9 g/dl (3.4-5.0); BILIRUBIN,TOTAL 0.9 mg/dL (0.2-1.0); CALCIUM 8.9 mg/dL (8.5-10.1); COCKROFT - GAULT 46.41; CREATININE 1.1 mg/dL (0.55-1.02); TOT PROT 5.8 g/dl (6.4-8.2)
[2016-11-26] MEDS: MAGNESIUM OXIDE 400 MG TABLET (FP) PO SCH ×2 (10:15→21:54)
[2016-11-26] MEDS: RAMIPRIL 2.5 MG CAPSULE (FP) PO SCH (10:15)
[2016-11-26] MEDS: RANITIDINE HCL 150 MG TABLET (FP) PO SCH ×2 (10:15→21:54)
--- NOTE | 2016-11-26 11:53 | PN ---
Progress Note (short form) - Note Progress Note: slow to respond today no complaints ate some pudding Vital Signs Period Temp Pulse Resp BP Sys/Carlos Pulse Ox Last 24 Hr 98.1 F-98.6 F 80-109 18-20 136-152/78-95 96-97 cor-rrr lungs clear abd soft,nt ext no edema no rash +port head ct unchanged CBC, BMP 11/26/16 06:30 11/26/16 06:30 Microbiology 11/24/16 09:28 Blood - Peripheral Venous Blood Culture - Preliminary NO GROWTH OBTAINED AFTER 48 HOURS, INCUBATION TO CONTINUE FOR 3 DAYS. 11/24/16 09:25 Blood - Peripheral Venous Blood Culture - Preliminary NO GROWTH OBTAINED AFTER 48 HOURS, INCUBATION TO CONTINUE FOR 3 DAYS. 11/23/16 13:40 Cerebral Spinal Fluid - Lumbar Puncture Gram Stain - Final 11/23/16 13:40 Cerebral Spinal Fluid - Lumbar Puncture CSF Culture - Final NO GROWTH AFTER 48 HOURS INCUBATION Current Medications Dexamethasone Sodium Phosphate (Decadron Injection -) 4 mg IVPB BID@ [facility] Last Admin: 11/26/16 05:53 Dose: 4 mg IV Flush (Mau-Cath Flush) 10 ml IVPUSH PRN PRN PRN Reason: IV MEDS Last Admin: 11/25/16 18:53 Dose: 10 ml Magnesium Oxide (Mag-Ox -) 400 mg PO BID [facility] Last Admin: 11/26/16 10:15 Dose: 400 mg Nystatin (Nystatin Oral Suspension -) 500,000 units PO Q6HPO [facility] Last Admin: 11/26/16 05:53 Dose: 500,000 units Ondansetron HCl (Zofran Injection) 4 mg IVPB Q6H PRN PRN Reason: NAUSEA Last Admin: 11/16/16 10:21 Dose: 4 mg Ramipril (Altace -) 2.5 mg PO DAILY [facility] Last Admin: 11/26/16 10:15 Dose: 2.5 mg Ranitidine HCl (Zantac -) 150 mg PO BID [facility] Last Admin: 11/26/16 10:15 Dose: 150 mg a/p continues to do poorly not much to offer metastatic adenoca suspect leukocytosis is secondary to steroids please call back if needed
--- NOTE | 2016-11-26 12:17 | PN ---
Progress Note, Physician Chief Complaint: Unable to obtain today. Patient sitting up and eating but is non-verbal today. - Current Medication List Current Medications: Active Medications Dexamethasone Sodium Phosphate (Decadron Injection -) 4 mg IVPB BID@ [facility] Last Admin: 11/26/16 05:53 Dose: 4 mg IV Flush (Mau-Cath Flush) 10 ml IVPUSH PRN PRN PRN Reason: IV MEDS Last Admin: 11/25/16 18:53 Dose: 10 ml Magnesium Oxide (Mag-Ox -) 400 mg PO BID [facility] Last Admin: 11/26/16 10:15 Dose: 400 mg Nystatin (Nystatin Oral Suspension -) 500,000 units PO Q6HPO [facility] Last Admin: 11/26/16 05:53 Dose: 500,000 units Ondansetron HCl (Zofran Injection) 4 mg IVPB Q6H PRN PRN Reason: NAUSEA Last Admin: 11/16/16 10:21 Dose: 4 mg Ramipril (Altace -) 2.5 mg PO DAILY [facility] Last Admin: 11/26/16 10:15 Dose: 2.5 mg Ranitidine HCl (Zantac -) 150 mg PO BID [facility] Last Admin: 11/26/16 10:15 Dose: 150 mg - Objective Vital Signs: Vital Signs Temperature 98.2 F 11/26/16 07:46 Pulse Rate 80 11/26/16 07:46 Respiratory Rate 18 11/26/16 07:46 Blood Pressure 152/95 11/26/16 07:46 O2 Sat by Pulse Oximetry (%) 97 11/26/16 09:00 Constitutional: Yes: Well Nourished, No Distress, Calm Cardiovascular: Yes: Regular Rate and Rhythm. No: Gallop, Murmur, Rub Respiratory: Yes: Regular, CTA Bilaterally. No: Rales, Rhonchi, Wheezes Gastrointestinal: Yes: Soft. No: Distention, Tenderness Extremities: Yes: WNL Edema: No Labs: CBC, BMP 11/26/16 06:30 11/26/16 06:30 INR, PTT INR 1.01 (0.82-1.09) 11/24/16 07:30 Problem List - Problems (1) Obstructive hydrocephalus Code(s): G91.1 - OBSTRUCTIVE HYDROCEPHALUS (2) Dehydration Code(s): E86.0 - DEHYDRATION (3) Failure to thrive Code(s): [id number] - Qualifiers: Failure to thrive age range: in adult Qualified Code(s): R62.7 - Adult failure to thrive (4) Lung cancer metastatic to bone Code(s): C34.90 - MALIGNANT NEOPLASM OF UNSP PART OF UNSP BRONCHUS OR LUNG C79.51 - SECONDARY MALIGNANT NEOPLASM OF BONE (5) HTN (hypertension) Code(s): I10 - ESSENTIAL (PRIMARY) HYPERTENSION (6) Headache Code(s): R51 - HEADACHE Qualifiers: Headache type: unspecified Headache chronicity pattern: unspecified pattern Intractability: not intractable Qualified Code(s): R51 - Headache (7) Metabolic encephalopathy Code(s): G93.41 - METABOLIC ENCEPHALOPATHY (8) UTI (urinary tract infection) due to Enterococcus Code(s): N39.0 - URINARY TRACT INFECTION, SITE NOT SPECIFIED B95.2 - ENTEROCOCCUS THE CAUSE OF DISEASES CLASSIFIED ELSEWHERE Assessment/Plan (1) Obstructive hydrocephalus secondary to metastasis -oncology managing -continue IT methotrexate per their recommendations (2) Dehydration Assessment/Plan: -resolved -encourage po intake Code(s): E86.0 - DEHYDRATION (3) Failure to thrive Assessment/Plan: -continue megace at physical therapy -continue supplements -eating today Code(s): [id number] - Qualifiers: Failure to thrive age range: in adult Qualified Code(s): R62.7 - Adult failure to thrive (4) Lung cancer metastatic to bone Assessment/Plan: -as above Code(s): C34.90 - MALIGNANT NEOPLASM OF UNSP PART OF UNSP BRONCHUS OR LUNG C79.51 - SECONDARY MALIGNANT NEOPLASM OF BONE (5) HTN (hypertension) Assessment/Plan: -continue ramipril Code(s): I10 - ESSENTIAL (PRIMARY) HYPERTENSION (6) Headache Assessment/Plan: -resolved Code(s): R51 - HEADACHE Qualifiers: Headache type: unspecified Headache chronicity pattern: unspecified pattern Intractability: not intractable Qualified Code(s): R51 - Headache (6) Metabolic encephalopathy -waxes and wanes -secondary to malignancy (7) Leukocytosis -appreciate ID assistance
[2016-11-26] MEDS: PORTA CATH FLUSH 10 ML IVPUSH PRN (13:25)
[2016-11-26] MEDS ORDERED: METHOTREXATE SODIUM/PF 25 MG/ML VIAL IT ONE ×2 (14:30)
--- NOTE | 2016-11-26 16:52 | PN ---
Progress Note (short form) - Note Progress Note: patient seen and examined confused lethargic Last Vital Signs Temp Pulse Resp BP Pulse Ox 97.9 F 112 H 18 135/95 97 11/26/16 16:13 11/26/16 16:13 11/26/16 16:13 11/26/16 16:13 11/26/16 09:00 Cor: RSR, No murmurs, No gallops Lungs: Clear to P&A Abd: Soft, Normal bowel sounds, No organomegaly Ext:No significant edema Abnormal Lab Results 11/26/16 11/26/16 06:30 06:30 WBC 14.7 H Neutrophils % 93.6 H Lymphocytes % 3.4 L Monocytes % 2.9 L Chloride 97 L BUN 42 H D Creatinine 1.1 H Random Glucose 197 H D AST 11 L Total Protein 5.8 L Albumin 2.9 L Home Medication List Medication Instructions Recorded Confirmed Type Atenolol 50 mg PO DAILY 11/07/16 11/07/16 History Oxycodone HCl 5 mg PO Q4HWA PRN 11/07/16 11/07/16 History Ramipril 2.5 mg PO DAILY 11/07/16 11/07/16 History Active Medications Generic Name Dose Route Start Last Admin Trade Name Freq PRN Reason Stop Dose Admin Dexamethasone Sodium Phosphate 4 mg 11/21/16 06:00 11/26/16 05:53 Decadron Injection - IVPB 4 mg BID@18 YUE Administration IV Flush 10 ml 11/21/16 12:46 11/26/16 13:25 Mau-Cath Flush IVPUSH 10 ml PRN PRN Administration IV MEDS Magnesium Oxide 400 mg 11/14/16 22:00 11/26/16 10:15 Mag-Ox - PO 400 mg BID YUE Administration Nystatin 500,000 units 11/09/16 00:00 11/26/16 13:25 Nystatin Oral Suspension - PO 500,000 units Q6HPO YUE Administration Ondansetron HCl 4 mg 11/07/16 06:07 11/16/16 10:21 Zofran Injection IVPB 4 mg Q6H PRN Administration NAUSEA Ramipril 2.5 mg 11/08/16 10:00 11/26/16 10:15 Altace - PO 2.5 mg DAILY YUE Administration Ranitidine HCl 150 mg 11/23/16 10:00 11/26/16 10:15 Zantac - PO 150 mg BID YUE Administration A/P 71 y/o female with metastatic lung cancer, adeno ca had been on carbo/alimta and more recently, tarceva, comes in with headache and failure to thrive concerning for progressive disease 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
[2016-11-26 22:36] LABS: CSF APPEARANCE CLEAR; CSF COLOR COLORLESS; CSF RBC 275 /mm3
[2016-11-26 23:29] LABS: CSF NEUTROPHILS 1 %
[2016-11-26 23:53] LABS: GLUCOSE,CSF 60 mg/dL (50-80)
[2016-11-27] MEDS: NYSTATIN 500,000 UNITS/5 ML SUSPENSION PO SCH ×4 (00:30→17:13)
[2016-11-27] MEDS ORDERED: PT OWN MED DRAWER 7, Y5N ONE ×3 (05:55→17:02)
[2016-11-27] MEDS: DEXAMETHASONE SOD PHOSPHATE 4 MG/1 ML VIAL IVPB SCH ×2 (06:23→17:13)
[2016-11-27 07:16] LABS: BASOPHIL 0.1 % (0-2.0); MCH 29.7 pg (25.7-33.7); MCHC 34.3 g/dl (32.0-36.0); MEAN CELL VOLUME 86.6 fl (80-96); MEAN PLT VOLUME 8.3 fl (7.5-11.1); NEUTROPHILS 91.4 % (42.8-82.8); PLATELET COUNT 174 K/MM3 (134-434); RDW 14.6 % (11.6-15.6); WHITE BLOOD COUNT 17.3 K/mm3 (4.0-10.0)
[2016-11-27 08:21] LABS: CALCIUM 8.9 mg/dL (8.5-10.1); COCKROFT - GAULT 42.5425; CREATININE 1.2 mg/dL (0.55-1.02); MAGNESIUM 2.2 mg/dL (1.8-2.4)
--- NOTE | 2016-11-27 08:27 | PN ---
Progress Note (short form) - Note Progress Note: PATIENT AWAKE / BUT UNRESPONSIVE TO QUESTIONS. BEING FED IN BED . NO DISTRESS. RECEIVING IT MTX. Selected Entries Laboratory Tests Laboratory Tests Selected Entries 11/27/16 05:54 Temperature 98.4 F Pulse Rate 94 H Respiratory 20 Rate Blood Pressure 146/81 Laboratory Tests 11/26/16 11/27/16 06:30 06:15 WBC 17.3 H RBC 4.68 Hgb 13.9 Hct 40.5 Plt Count 174 Neutrophils % 91.4 H Lymphocytes % 4.4 L D Sodium 136 Potassium 4.3 Chloride 97 L Carbon Dioxide 23 Anion Gap 16 BUN 42 H D Creatinine 1.1 H Creat Clearance w eGFR 48.69 Random Glucose 197 H D Calcium 8.9 Total Bilirubin 0.9 AST 11 L ALT 39 Alkaline Phosphatase 74 Total Protein 5.8 L Albumin 2.9 L P/E <> NO DISTRESS / AWAKE BUT NOT RESPONDING TO COMMANDS. HEENT <> NECK SUPPLE COR <> S1 S2 HS DISTANT. CHEST <> FEW SCATTERED RHONCHI ABD <> SOFT / NO REBOUND / NO GUARDING . EXT <> NO SWELLING . IMP. METASTATIC LUNG CA LEPTOMENINGEAL CARCINOMATOSIS DEHYDRATION . HTN TYPE 2 DM PLAN : HAD IT CHEMO YESTERDAY. PER ONC. NEXT DOSE SATURDAY. CONTINUE DECADRON. FOLLOW LABS . MONITOR LYTES / BUN / CR. PROGNOSIS POOR / SUPPORTIVE CARE POSSIBLE HOSPICE PLACEMENT PENDING RESPONSE TO PRESENT RX.
[2016-11-27] MEDS: RAMIPRIL 2.5 MG CAPSULE (FP) PO SCH (09:58)
[2016-11-27] MEDS: MAGNESIUM OXIDE 400 MG TABLET (FP) PO SCH ×2 (09:58→21:27)
[2016-11-27] MEDS: RANITIDINE HCL 150 MG TABLET (FP) PO SCH ×2 (09:58→21:27)
[2016-11-27] MEDS: SODIUM CHLORIDE 1,000 ML IV SCH (10:06)
--- NOTE | 2016-11-27 21:51 | PN ---
Progress Note (short form) - Note Progress Note: Patient seen and examined Remains confused Discussed with Dr. Hoyt Last Vital Signs Temp Pulse Resp BP Pulse Ox 98.6 F 110 H 20 146/79 97 11/27/16 14:43 11/27/16 14:43 11/27/16 10:00 11/27/16 14:43 11/26/16 21:00 HEENT: JOSE ROBERTO, EOM Intact Oropharynx: No thrush, No mucositis Cor: RSR, No murmurs, No gallops Lungs: diminished breath sounds Abd: Soft, Normal bowel sounds, No organomegaly Ext:No significant edema CBC, BMP 11/27/16 06:15 11/27/16 06:15 Current Medications Generic Name Dose Route Start Last Admin Trade Name Freq PRN Reason Stop Dose Admin Dexamethasone Sodium Phosphate 4 mg 11/21/16 06:00 11/27/16 17:13 Decadron Injection - IVPB 4 mg BID@06,18 YUE Administration IV Flush 10 ml 11/21/16 12:46 11/26/16 13:25 Mau-Cath Flush IVPUSH 10 ml PRN PRN Administration IV MEDS Sodium Chloride 1,000 mls @ 42 mls/hr 11/27/16 07:15 11/27/16 10:06 Normal Saline - IV 42 mls/hr ASDIR YUE Administration Magnesium Oxide 400 mg 11/14/16 22:00 11/27/16 21:27 Mag-Ox - PO 400 mg BID YUE Administration Nystatin 500,000 units 11/09/16 00:00 11/27/16 17:13 Nystatin Oral Suspension - PO 500,000 units Q6HPO YUE Administration Ondansetron HCl 4 mg 11/07/16 06:07 11/16/16 10:21 Zofran Injection IVPB 4 mg Q6H PRN Administration NAUSEA Ramipril 2.5 mg 11/08/16 10:00 11/27/16 09:58 Altace - PO 2.5 mg DAILY YUE Administration Ranitidine HCl 150 mg 11/23/16 10:00 11/27/16 21:27 Zantac - PO 150 mg BID YUE Administration Impression: Lung ca Leptomeningeal carcinomatosis Continuing on I.T. chemotherapy. No continue improvement to date. Would give one month of therapy and if no improvement , may need to consider hospice placement.
[2016-11-28] MEDS: NYSTATIN 500,000 UNITS/5 ML SUSPENSION PO SCH ×4 (00:29→17:25)
[2016-11-28] MEDS: DEXAMETHASONE SOD PHOSPHATE 4 MG/1 ML VIAL IVPB SCH ×2 (05:20→17:30)
[2016-11-28] MEDS: MAGNESIUM OXIDE 400 MG TABLET (FP) PO SCH ×2 (09:45→21:20)
[2016-11-28] MEDS: RANITIDINE HCL 150 MG TABLET (FP) PO SCH ×2 (09:45→21:20)
[2016-11-28] MEDS: RAMIPRIL 2.5 MG CAPSULE (FP) PO SCH (09:45)
[2016-11-28] MEDS: SODIUM CHLORIDE 1,000 ML IV SCH (09:46)
--- NOTE | 2016-11-28 11:20 | PATH ---
Cytology Non-Gynecological Report Patient Name: ISABEL STONE [facility]. Rec. #: [id number] /Age/Gender: 1945 (Age: 71) / F Account: [id number] Location: [address] [place] [address] Taken: 11/26/2016 Received: 11/27/2016 Reported: 11/27/2016 Physicians: Brittny Soria M.D. Specimen(s) Received CEREBRAL SPINAL FLUID Clinical History Lung cancer, carcinomatous meningitis Final Diagnosis CEREBROSPINAL FLUID: SATISFACTORY FOR EVALUATION. POSITIVE FOR MALIGNANT CELLS. CONSISTENT WITH INVOLVEMENT BY ADENOCARCINOMA (SEE COMMENT). Comment: The findings are similar to the prior CSF cytology studies ([id number] and [id number]). Electronically Signed Abel Lamb M.D. Gross Description Received is 15 cc of clear fluid. Four cytofunnel slides are made.
[2016-11-28] MEDS ORDERED: PT OWN MED DRAWER 7, Y5N ONE (11:25)
--- NOTE | 2016-11-28 12:05 | PN ---
Progress Note, Physician Chief Complaint: Unable to obtain today. Patient sitting up and eating but remains non-verbal with me. - Current Medication List Current Medications: Active Medications Dexamethasone Sodium Phosphate (Decadron Injection -) 4 mg IVPB BID@,18 [facility] Last Admin: 11/28/16 05:20 Dose: 4 mg IV Flush (Mau-Cath Flush) 10 ml IVPUSH PRN PRN PRN Reason: IV MEDS Last Admin: 11/26/16 13:25 Dose: 10 ml Sodium Chloride (Normal Saline -) 1,000 mls @ 42 mls/hr IV ASDIR [facility] Last Admin: 11/28/16 09:46 Dose: 42 mls/hr Magnesium Oxide (Mag-Ox -) 400 mg PO BID [facility] Last Admin: 11/28/16 09:45 Dose: 400 mg Nystatin (Nystatin Oral Suspension -) 500,000 units PO Q6HPO [facility] Last Admin: 11/28/16 11:35 Dose: Not Given Ondansetron HCl (Zofran Injection) 4 mg IVPB Q6H PRN PRN Reason: NAUSEA Last Admin: 11/16/16 10:21 Dose: 4 mg Ramipril (Altace -) 2.5 mg PO DAILY [facility] Last Admin: 11/28/16 09:45 Dose: 2.5 mg Ranitidine HCl (Zantac -) 150 mg PO BID [facility] Last Admin: 11/28/16 09:45 Dose: 150 mg - Objective Vital Signs: Vital Signs Temperature 97.4 F L 11/28/16 06:00 Pulse Rate 90 11/28/16 06:00 Respiratory Rate 18 11/28/16 06:00 Blood Pressure 146/90 11/28/16 06:00 O2 Sat by Pulse Oximetry (%) 98 11/27/16 21:00 Constitutional: Yes: Well Nourished, No Distress, Calm Cardiovascular: Yes: Regular Rate and Rhythm. No: Gallop, Murmur, Rub Respiratory: Yes: Regular, CTA Bilaterally. No: Rales, Rhonchi, Wheezes Gastrointestinal: Yes: Normal Bowel Sounds, Soft. No: Distention, Tenderness Extremities: Yes: WNL Edema: No Labs: CBC, BMP 11/27/16 06:15 11/27/16 06:15 INR, PTT INR 1.01 (0.82-1.09) 11/24/16 07:30 Problem List - Problems (1) Obstructive hydrocephalus Code(s): G91.1 - OBSTRUCTIVE HYDROCEPHALUS (2) Dehydration Code(s): E86.0 - DEHYDRATION (3) Failure to thrive Code(s): [id number] - Qualifiers: Failure to thrive age range: in adult Qualified Code(s): R62.7 - Adult failure to thrive (4) Lung cancer metastatic to bone Code(s): C34.90 - MALIGNANT NEOPLASM OF UNSP PART OF UNSP BRONCHUS OR LUNG C79.51 - SECONDARY MALIGNANT NEOPLASM OF BONE (5) HTN (hypertension) Code(s): I10 - ESSENTIAL (PRIMARY) HYPERTENSION (6) Headache Code(s): R51 - HEADACHE Qualifiers: Headache type: unspecified Headache chronicity pattern: unspecified pattern Intractability: not intractable Qualified Code(s): R51 - Headache (7) Metabolic encephalopathy Code(s): G93.41 - METABOLIC ENCEPHALOPATHY (8) UTI (urinary tract infection) due to Enterococcus Code(s): N39.0 - URINARY TRACT INFECTION, SITE NOT SPECIFIED B95.2 - ENTEROCOCCUS THE CAUSE OF DISEASES CLASSIFIED ELSEWHERE Assessment/Plan (1) Obstructive hydrocephalus secondary to metastasis -oncology managing -continue IT methotrexate per their recommendations -case d/w Dr Blankenship, poor prognosis (2) Dehydration Assessment/Plan: -resolved -encourage po intake Code(s): E86.0 - DEHYDRATION (3) Failure to thrive Assessment/Plan: -continue megace at physical therapy -continue supplements -eating today Code(s): [id number] - Qualifiers: Failure to thrive age range: in adult Qualified Code(s): R62.7 - Adult failure to thrive (4) Lung cancer metastatic to bone Assessment/Plan: -as above Code(s): C34.90 - MALIGNANT NEOPLASM OF UNSP PART OF UNSP BRONCHUS OR LUNG C79.51 - SECONDARY MALIGNANT NEOPLASM OF BONE (5) HTN (hypertension) Assessment/Plan: -continue ramipril Code(s): I10 - ESSENTIAL (PRIMARY) HYPERTENSION (6) Headache Assessment/Plan: -resolved Code(s): R51 - HEADACHE Qualifiers: Headache type: unspecified Headache chronicity pattern: unspecified pattern Intractability: not intractable Qualified Code(s): R51 - Headache (6) Metabolic encephalopathy -waxes and wanes -secondary to malignancy (7) Leukocytosis -appreciate ID assistance
[2016-11-29] MEDS: NYSTATIN 500,000 UNITS/5 ML SUSPENSION PO SCH ×4 (00:02→17:29)
[2016-11-29] MEDS: DEXAMETHASONE SOD PHOSPHATE 4 MG/1 ML VIAL IVPB SCH ×2 (06:04→17:30)
[2016-11-29] MEDS: SODIUM CHLORIDE 1,000 ML IV SCH ×2 (06:04→10:24)
[2016-11-29] MEDS: PORTA CATH FLUSH 10 ML IVPUSH PRN (06:33)
[2016-11-29 07:27] LABS: BASOPHIL 0.1 % (0-2.0); MCH 29.7 pg (25.7-33.7); MCHC 33.9 g/dl (32.0-36.0); MEAN CELL VOLUME 87.8 fl (80-96); NEUTROPHILS 95.8 % (42.8-82.8); PLATELET COUNT 168 K/MM3 (134-434); RDW 14.9 % (11.6-15.6); WHITE BLOOD COUNT 18.5 K/mm3 (4.0-10.0)
[2016-11-29 07:59] LABS: CALCIUM 8.6 mg/dL (8.5-10.1); MAGNESIUM 2.2 mg/dL (1.8-2.4)
[2016-11-29 08:02] LABS: COCKROFT - GAULT 56.7205; CREATININE 0.9 mg/dL (0.55-1.02); PHOSPHOROUS 2.7 mg/dL (2.5-4.9)
[2016-11-29] MEDS: MAGNESIUM OXIDE 400 MG TABLET (FP) PO SCH ×2 (10:23→21:37)
[2016-11-29] MEDS: RANITIDINE HCL 150 MG TABLET (FP) PO SCH ×2 (10:23→21:37)
[2016-11-29] MEDS: RAMIPRIL 2.5 MG CAPSULE (FP) PO SCH (10:24)
--- NOTE | 2016-11-29 13:42 | PN ---
Progress Note, Physician Chief Complaint: Unable to obtain today. Patient sitting in chair but is not speaking to me. - Current Medication List Current Medications: Active Medications Dexamethasone Sodium Phosphate (Decadron Injection -) 4 mg IVPB BID@06,18 [facility] Last Admin: 11/29/16 06:04 Dose: 4 mg IV Flush (Mau-Cath Flush) 10 ml IVPUSH PRN PRN PRN Reason: IV MEDS Last Admin: 11/29/16 06:33 Dose: 10 ml Sodium Chloride (Normal Saline -) 1,000 mls @ 42 mls/hr IV ASDIR [facility] Last Admin: 11/29/16 10:24 Dose: Not Given Magnesium Oxide (Mag-Ox -) 400 mg PO BID [facility] Last Admin: 11/29/16 10:23 Dose: 400 mg Nystatin (Nystatin Oral Suspension -) 500,000 units PO Q6HPO [facility] Last Admin: 11/29/16 13:05 Dose: Not Given Ondansetron HCl (Zofran Injection) 4 mg IVPB Q6H PRN PRN Reason: NAUSEA Last Admin: 11/16/16 10:21 Dose: 4 mg Ramipril (Altace -) 2.5 mg PO DAILY [facility] Last Admin: 11/29/16 10:24 Dose: 2.5 mg Ranitidine HCl (Zantac -) 150 mg PO BID [facility] Last Admin: 11/29/16 10:23 Dose: 150 mg - Objective Vital Signs: Vital Signs Temperature 98.5 F 11/29/16 10:00 Pulse Rate 125 H 11/29/16 10:00 Respiratory Rate 20 11/29/16 10:00 Blood Pressure 139/80 11/29/16 10:00 O2 Sat by Pulse Oximetry (%) 95 11/28/16 21:00 Constitutional: Yes: Well Nourished, No Distress, Calm Cardiovascular: Yes: Regular Rate and Rhythm. No: Gallop, Murmur, Rub Respiratory: Yes: Regular, CTA Bilaterally. No: Rales, Rhonchi, Wheezes Gastrointestinal: Yes: Normal Bowel Sounds, Soft. No: Distention, Tenderness Extremities: Yes: WNL Edema: No Labs: CBC, BMP 11/29/16 06:10 11/29/16 06:10 INR, PTT INR 1.01 (0.82-1.09) 11/24/16 07:30 Problem List - Problems (1) Obstructive hydrocephalus Code(s): G91.1 - OBSTRUCTIVE HYDROCEPHALUS (2) Dehydration Code(s): E86.0 - DEHYDRATION (3) Failure to thrive Code(s): [id number] - Qualifiers: Failure to thrive age range: in adult Qualified Code(s): R62.7 - Adult failure to thrive (4) Lung cancer metastatic to bone Code(s): C34.90 - MALIGNANT NEOPLASM OF UNSP PART OF UNSP BRONCHUS OR LUNG C79.51 - SECONDARY MALIGNANT NEOPLASM OF BONE (5) HTN (hypertension) Code(s): I10 - ESSENTIAL (PRIMARY) HYPERTENSION (6) Headache Code(s): R51 - HEADACHE Qualifiers: Headache type: unspecified Headache chronicity pattern: unspecified pattern Intractability: not intractable Qualified Code(s): R51 - Headache (7) Metabolic encephalopathy Code(s): G93.41 - METABOLIC ENCEPHALOPATHY (8) UTI (urinary tract infection) due to Enterococcus Code(s): N39.0 - URINARY TRACT INFECTION, SITE NOT SPECIFIED B95.2 - ENTEROCOCCUS THE CAUSE OF DISEASES CLASSIFIED ELSEWHERE Assessment/Plan (1) Obstructive hydrocephalus secondary to metastasis -oncology managing -continue IT methotrexate per their recommendations -case d/w Dr Blankenship, poor prognosis (2) Dehydration Assessment/Plan: -resolved -encourage po intake Code(s): E86.0 - DEHYDRATION (3) Failure to thrive Assessment/Plan: -continue megace at physical therapy -continue supplements Code(s): [id number] - Qualifiers: Failure to thrive age range: in adult Qualified Code(s): R62.7 - Adult failure to thrive (4) Lung cancer metastatic to bone Assessment/Plan: -treatment per oncology Code(s): C34.90 - MALIGNANT NEOPLASM OF UNSP PART OF UNSP BRONCHUS OR LUNG C79.51 - SECONDARY MALIGNANT NEOPLASM OF BONE (5) HTN (hypertension) Assessment/Plan: -continue ramipril Code(s): I10 - ESSENTIAL (PRIMARY) HYPERTENSION (6) Headache Assessment/Plan: -resolved Code(s): R51 - HEADACHE Qualifiers: Headache type: unspecified Headache chronicity pattern: unspecified pattern Intractability: not intractable Qualified Code(s): R51 - Headache (6) Metabolic encephalopathy -waxes and wanes -secondary to malignancy (7) Leukocytosis -non-infectious
[2016-11-30] MEDS: NYSTATIN 500,000 UNITS/5 ML SUSPENSION PO SCH ×5 (01:06→23:12)
[2016-11-30] MEDS: PORTA CATH FLUSH 10 ML IVPUSH PRN (05:31)
[2016-11-30] MEDS: DEXAMETHASONE SOD PHOSPHATE 4 MG/1 ML VIAL IVPB SCH ×2 (05:31→17:10)
[2016-11-30 08:27] LABS: BASOPHIL 0.1 % (0-2.0); EOSINOPHIL 0.1 % (0-4.5); MCH 29.5 pg (25.7-33.7); MCHC 33.5 g/dl (32.0-36.0); MEAN CELL VOLUME 88.2 fl (80-96); MEAN PLT VOLUME 8.1 fl (7.5-11.1); NEUTROPHILS 95.9 % (42.8-82.8); PLATELET COUNT 150 K/MM3 (134-434); RDW 15.3 % (11.6-15.6); WHITE BLOOD COUNT 16.7 K/mm3 (4.0-10.0)
[2016-11-30 08:34] LABS: INR 0.99 (0.82-1.09); PROTHROMBIN TIME (PATIENT) 10.9 SEC (9.98-11.88)
[2016-11-30 08:37] LABS: ACTIVATED PTT 23.9 SECONDS (26.9-34.4)
[2016-11-30 09:05] LABS: CALCIUM 8.3 mg/dL (8.5-10.1); COCKROFT - GAULT 51.051; MAGNESIUM 2.3 mg/dL (1.8-2.4); PHOSPHOROUS 2.3 mg/dL (2.5-4.9)
[2016-11-30] MEDS: RAMIPRIL 2.5 MG CAPSULE (FP) PO SCH (09:51)
[2016-11-30] MEDS: RANITIDINE HCL 150 MG TABLET (FP) PO SCH ×2 (09:51→22:08)
[2016-11-30] MEDS: MAGNESIUM OXIDE 400 MG TABLET (FP) PO SCH ×2 (09:51→22:08)
[2016-11-30] MEDS ORDERED: METHOTREXATE SODIUM IT ONE (12:00)
--- NOTE | 2016-11-30 12:46 | PN ---
Progress Note, Physician Chief Complaint: Unable to obtain. Patient awake and in bed but remains non-verbal. - Current Medication List Current Medications: Active Medications Dexamethasone Sodium Phosphate (Decadron Injection -) 4 mg IVPB BID@06,18 [facility] Last Admin: 11/30/16 05:31 Dose: 4 mg IV Flush (Mau-Cath Flush) 10 ml IVPUSH PRN PRN PRN Reason: IV MEDS Last Admin: 11/30/16 05:31 Dose: 10 ml Sodium Chloride (Normal Saline -) 1,000 mls @ 42 mls/hr IV ASDIR [facility] Last Admin: 11/29/16 10:24 Dose: Not Given Magnesium Oxide (Mag-Ox -) 400 mg PO BID [facility] Last Admin: 11/30/16 09:51 Dose: 400 mg Nystatin (Nystatin Oral Suspension -) 500,000 units PO Q6HPO [facility] Last Admin: 11/30/16 11:41 Dose: 500,000 units Ondansetron HCl (Zofran Injection) 4 mg IVPB Q6H PRN PRN Reason: NAUSEA Last Admin: 11/16/16 10:21 Dose: 4 mg Ramipril (Altace -) 2.5 mg PO DAILY [facility] Last Admin: 11/30/16 09:51 Dose: 2.5 mg Ranitidine HCl (Zantac -) 150 mg PO BID [facility] Last Admin: 11/30/16 09:51 Dose: 150 mg - Objective Vital Signs: Vital Signs Temperature 98.4 F 11/30/16 08:53 Pulse Rate 97 H 11/30/16 08:53 Respiratory Rate 20 11/30/16 08:55 Blood Pressure 147/92 11/30/16 08:53 O2 Sat by Pulse Oximetry (%) 98 11/30/16 08:55 Constitutional: Yes: Well Nourished, No Distress, Calm Cardiovascular: Yes: Regular Rate and Rhythm. No: Gallop, Murmur, Rub Respiratory: Yes: Regular, CTA Bilaterally. No: Rales, Rhonchi, Wheezes Gastrointestinal: Yes: Normal Bowel Sounds, Soft. No: Distention, Tenderness Extremities: Yes: WNL Edema: No Labs: CBC, BMP 11/30/16 07:10 11/30/16 07:10 INR, PTT INR 0.99 (0.82-1.09) 11/30/16 07:10 Problem List - Problems (1) Obstructive hydrocephalus Code(s): G91.1 - OBSTRUCTIVE HYDROCEPHALUS (2) Dehydration Code(s): E86.0 - DEHYDRATION (3) Failure to thrive Code(s): [id number] - Qualifiers: Failure to thrive age range: in adult Qualified Code(s): R62.7 - Adult failure to thrive (4) Lung cancer metastatic to bone Code(s): C34.90 - MALIGNANT NEOPLASM OF UNSP PART OF UNSP BRONCHUS OR LUNG C79.51 - SECONDARY MALIGNANT NEOPLASM OF BONE (5) HTN (hypertension) Code(s): I10 - ESSENTIAL (PRIMARY) HYPERTENSION (6) Headache Code(s): R51 - HEADACHE Qualifiers: Headache type: unspecified Headache chronicity pattern: unspecified pattern Intractability: not intractable Qualified Code(s): R51 - Headache (7) Metabolic encephalopathy Code(s): G93.41 - METABOLIC ENCEPHALOPATHY (8) UTI (urinary tract infection) due to Enterococcus Code(s): N39.0 - URINARY TRACT INFECTION, SITE NOT SPECIFIED B95.2 - ENTEROCOCCUS THE CAUSE OF DISEASES CLASSIFIED ELSEWHERE Assessment/Plan (1) Obstructive hydrocephalus secondary to metastasis -oncology managing -IT methotrexate today -oncology following (2) Dehydration Assessment/Plan: -resolved -encourage po intake Code(s): E86.0 - DEHYDRATION (3) Failure to thrive Assessment/Plan: -continue megace at physical therapy -continue supplements Code(s): [id number] - Qualifiers: Failure to thrive age range: in adult Qualified Code(s): R62.7 - Adult failure to thrive (4) Lung cancer metastatic to bone Assessment/Plan: -treatment per oncology Code(s): C34.90 - MALIGNANT NEOPLASM OF UNSP PART OF UNSP BRONCHUS OR LUNG C79.51 - SECONDARY MALIGNANT NEOPLASM OF BONE (5) HTN (hypertension) Assessment/Plan: -continue ramipril Code(s): I10 - ESSENTIAL (PRIMARY) HYPERTENSION (6) Headache Assessment/Plan: -resolved Code(s): R51 - HEADACHE Qualifiers: Headache type: unspecified Headache chronicity pattern: unspecified pattern Intractability: not intractable Qualified Code(s): R51 - Headache (6) Metabolic encephalopathy -waxes and wanes -secondary to malignancy (7) Leukocytosis -non-infectious
[2016-11-30 13:44] LABS: CSF APPEARANCE CLEAR; CSF COLOR COLORLESS
[2016-11-30] MEDS: SODIUM CHLORIDE 1,000 ML IV SCH (13:48)
--- NOTE | 2016-11-30 15:05 | PATH ---
Surgical Pathology Report Patient Name: ISABEL STONE [facility]. Rec. #: [id number] /Age/Gender: 1945 (Age: 71) / F Account: [id number] Location: [address] [place] [address]/[facility] Taken: 11/22/2016 Received: 11/22/2016 Reported: 11/30/2016 Physicians: Brittny Soria M.D. Specimen(s) Received PERIPHERAL BLOOD 2 LAVENDER Clinical History Metastatic lung cancer Final Diagnosis EGFR Maryjo, [id number] analysis, including T790M mutation performed and interpreted on plasma specimen at [place] [place] (specimen ID [id number]) shows the following: Result: EGFR MARYJO V2: Negative Interpretation: No EGFR mutation was detected in the provided plasma specimen. Mutation detected with EGFR MARYJO V2 include mutations in exons 18 (G719X), 19 (deletion and complex mutations) , exon 20 (S768I, T790M, insertions) and exon 21 (L858R, L861Q). Patients who are negative for these mutations should be reflexed to routine biopsy and testing for EGFR mutation on FFPE specimen type. Electronically Signed Abel Lamb M.D. Gross Description Received are 2 lavender top tubes of blood which are sent to [facility] 11/22/201611/22/2016
[2016-11-30 17:27] LABS: CSF RBC 16 /mm3
[2016-11-30 17:53] LABS: GLUCOSE,CSF 44 mg/dL (50-80)
--- NOTE | 2016-11-30 23:26 | PN ---
Progress Note (short form) - Note Progress Note: patient seen and examined confused lethargic Last Vital Signs Temp Pulse Resp BP Pulse Ox 97.9 F 112 H 18 135/95 97 11/26/16 16:13 11/26/16 16:13 11/26/16 16:13 11/26/16 16:13 11/26/16 09:00 Cor: RSR, No murmurs, No gallops Lungs: Clear to P&A Abd: Soft, Normal bowel sounds, No organomegaly Ext:No significant edema Abnormal Lab Results 11/26/16 11/26/16 06:30 06:30 WBC 14.7 H Neutrophils % 93.6 H Lymphocytes % 3.4 L Monocytes % 2.9 L Chloride 97 L BUN 42 H D Creatinine 1.1 H Random Glucose 197 H D AST 11 L Total Protein 5.8 L Albumin 2.9 L Home Medication List Medication Instructions Recorded Confirmed Type Atenolol 50 mg PO DAILY 11/07/16 11/07/16 History Oxycodone HCl 5 mg PO Q4HWA PRN 11/07/16 11/07/16 History Ramipril 2.5 mg PO DAILY 11/07/16 11/07/16 History Active Medications Generic Name Dose Route Start Last Admin Trade Name Freq PRN Reason Stop Dose Admin Dexamethasone Sodium Phosphate 4 mg 11/21/16 06:00 11/26/16 05:53 Decadron Injection - IVPB 4 mg BID@18 YUE Administration IV Flush 10 ml 11/21/16 12:46 11/26/16 13:25 Mau-Cath Flush IVPUSH 10 ml PRN PRN Administration IV MEDS Magnesium Oxide 400 mg 11/14/16 22:00 11/26/16 10:15 Mag-Ox - PO 400 mg BID YUE Administration Nystatin 500,000 units 11/09/16 00:00 11/26/16 13:25 Nystatin Oral Suspension - PO 500,000 units Q6HPO YUE Administration Ondansetron HCl 4 mg 11/07/16 06:07 11/16/16 10:21 Zofran Injection IVPB 4 mg Q6H PRN Administration NAUSEA Ramipril 2.5 mg 11/08/16 10:00 11/26/16 10:15 Altace - PO 2.5 mg DAILY YUE Administration Ranitidine HCl 150 mg 11/23/16 10:00 11/26/16 10:15 Zantac - PO 150 mg BID YUE Administration A/P 71 y/o female with metastatic lung cancer, adeno ca had been on carbo/alimta and more recently, tarceva, comes in with headache and failure to thrive concerning for progressive disease 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
[2016-12-01] MEDS: DEXAMETHASONE SOD PHOSPHATE 4 MG/1 ML VIAL IVPB SCH ×2 (05:29→18:25)
[2016-12-01] MEDS: NYSTATIN 500,000 UNITS/5 ML SUSPENSION PO SCH ×3 (05:29→18:26)
[2016-12-01 07:54] LABS: BASOPHIL 0.2 % (0-2.0); MCH 29.7 pg (25.7-33.7); MCHC 33.3 g/dl (32.0-36.0); MEAN CELL VOLUME 89.2 fl (80-96); MEAN PLT VOLUME 7.8 fl (7.5-11.1); NEUTROPHILS 94.4 % (42.8-82.8); PLATELET COUNT 160 K/MM3 (134-434); WHITE BLOOD COUNT 12.3 K/mm3 (4.0-10.0)
[2016-12-01 08:18] LABS: CALCIUM 8.6 mg/dL (8.5-10.1); COCKROFT - GAULT 51.051; MAGNESIUM 2.3 mg/dL (1.8-2.4); PHOSPHOROUS 2.5 mg/dL (2.5-4.9)
[2016-12-01] MEDS: RAMIPRIL 2.5 MG CAPSULE (FP) PO SCH (10:30)
[2016-12-01] MEDS: RANITIDINE HCL 150 MG TABLET (FP) PO SCH ×2 (10:30→21:29)
[2016-12-01] MEDS: MAGNESIUM OXIDE 400 MG TABLET (FP) PO SCH ×3 (10:30→21:37)
--- NOTE | 2016-12-01 13:09 | PN ---
Progress Note (short form) - Note Progress Note: Does not talk but shows in respose that she has no head aches or pain O/E Vital Signs Temp 98.1 F 12/01/16 09:03 Pulse 100 H 12/01/16 09:03 Resp 18 12/01/16 09:03 BP 155/77 12/01/16 09:03 Pulse Ox 98 11/30/16 08:55 Intake & Output 11/30/16 12/01/16 12/01/16 23:59 11:59 23:59 Intake Total 813 539 Balance 813 539 Intake: IV 588 294 Normal Saline - 1,000 ml 588 294 @ 42 mls/hr IV ASDIR [facility] Rx#:[id number] IVPB 50 0 Oral 175 245 Other: Voiding Method Incontinent Incontinent # Unmeasured Voids Void 2 1 Bowel Movement No Heart regul;ar Lungs clear Abd soft Ext trace edema Allert and awake but not respoding to questions verbally Current Medications Dexamethasone Sodium Phosphate (Decadron Injection -) 4 mg IVPB BID@ [facility] Last Admin: 12/01/16 05:29 Dose: 4 mg IV Flush (Mau-Cath Flush) 10 ml IVPUSH PRN PRN PRN Reason: IV MEDS Last Admin: 11/30/16 05:31 Dose: 10 ml Sodium Chloride (Normal Saline -) 1,000 mls @ 42 mls/hr IV ASDIR [facility] Last Admin: 11/30/16 13:48 Dose: 42 mls/hr Magnesium Oxide (Mag-Ox -) 400 mg PO BID [facility] Last Admin: 12/01/16 10:30 Dose: 400 mg Nystatin (Nystatin Oral Suspension -) 500,000 units PO Q6HPO [facility] Last Admin: 12/01/16 05:29 Dose: Not Given Ondansetron HCl (Zofran Injection) 4 mg IVPB Q6H PRN PRN Reason: NAUSEA Last Admin: 11/16/16 10:21 Dose: 4 mg Ramipril (Altace -) 2.5 mg PO DAILY [facility] Last Admin: 12/01/16 10:30 Dose: 2.5 mg Ranitidine HCl (Zantac -) 150 mg PO BID [facility] Last Admin: 12/01/16 10:30 Dose: 150 mg Home Medications Medication Instructions Recorded Atenolol 50 mg PO DAILY 11/07/16 Oxycodone HCl 5 mg PO Q4HWA PRN 11/07/16 Ramipril 2.5 mg PO DAILY 11/07/16 Laboratory Results - last 24 hr 11/30/16 12/01/16 12/01/16 12:35 06:30 06:30 WBC 12.3 H RBC 4.15 Hgb 12.3 Hct 37.0 MCV 89.2 MCHC 33.3 RDW 15.0 Plt Count 160 MPV 7.8 Neutrophils % 94.4 H Lymphocytes % 2.8 L D Monocytes % 2.6 L Eosinophils % 0.0 D Basophils % 0.2 Sodium 140 Potassium 4.8 Chloride 105 Carbon Dioxide 26 Anion Gap 9 BUN 39 H Creatinine 1.0 Random Glucose 241 H Calcium 8.6 Phosphorus 2.5 Magnesium 2.3 CSF Appearance Clear CSF Color Colorless CSF WBC 5 CSF RBC 16 CSF Neutrophils Y CSF Glucose 44 L CSF Total Protein 77 H A&P Assessment/Plan (1) Obstructive hydrocephalus secondary to metastasis overall pronosis is grim. She needs to be placed on a palliative protocol and comfort care for terminal illness Will discuss with family (2) Dehydration Assessment/Plan: -resolved Code(s): E86.0 - DEHYDRATION (3) Failure to thrive Assessment/Plan: -continue present care Code(s): [id number] - Qualifiers: Failure to thrive age range: in adult Qualified Code(s): R62.7 - Adult failure to thrive (4) Lung cancer metastatic to bone Assessment/Plan: -as discussed above Code(s): C34.90 - MALIGNANT NEOPLASM OF UNSP PART OF UNSP BRONCHUS OR LUNG C79.51 - SECONDARY MALIGNANT NEOPLASM OF BONE (5) HTN (hypertension) Assessment/Plan: -continue ramipril Code(s): I10 - ESSENTIAL (PRIMARY) HYPERTENSION (6) Headache Assessment/Plan: -resolved Code(s): R51 - HEADACHE Qualifiers: Headache type: unspecified Headache chronicity pattern: unspecified pattern Intractability: not intractable Qualified Code(s): R51 - Headache (6) Metabolic encephalopathy -waxes and wanes -secondary to malignancy (7) Leukocytosis -non-infectious
[2016-12-02] MEDS: NYSTATIN 500,000 UNITS/5 ML SUSPENSION PO SCH ×4 (00:25→17:06)
[2016-12-02] MEDS: DEXAMETHASONE SOD PHOSPHATE 4 MG/1 ML VIAL IVPB SCH ×2 (05:41→17:06)
[2016-12-02] MEDS: PORTA CATH FLUSH 10 ML IVPUSH PRN (05:42)
[2016-12-02] MEDS: RANITIDINE HCL 150 MG TABLET (FP) PO SCH ×2 (09:15→22:26)
[2016-12-02] MEDS: RAMIPRIL 2.5 MG CAPSULE (FP) PO SCH (09:15)
[2016-12-02] MEDS: MAGNESIUM OXIDE 400 MG TABLET (FP) PO SCH ×2 (09:15→22:26)
--- NOTE | 2016-12-02 13:38 | PN ---
Progress Note (short form) - Note Progress Note: Non verbal today O/E Vital Signs Period Temp Pulse Resp BP Sys/Carlos Pulse Ox Last 24 Hr 97.4 F-99.3 F 87-114 18-20 123-153/74-90 98-98 Heart regular Lungs clear Abd soft Ext no edema Current Medications Dexamethasone Sodium Phosphate (Decadron Injection -) 4 mg IVPB BID@06,18 [facility] Last Admin: 12/02/16 05:41 Dose: 4 mg IV Flush (Mau-Cath Flush) 10 ml IVPUSH PRN PRN PRN Reason: IV MEDS Last Admin: 12/02/16 05:42 Dose: 10 ml Sodium Chloride (Normal Saline -) 1,000 mls @ 42 mls/hr IV ASDIR [facility] Last Admin: 11/30/16 13:48 Dose: 42 mls/hr Magnesium Oxide (Mag-Ox -) 400 mg PO BID [facility] Last Admin: 12/02/16 09:15 Dose: 400 mg Nystatin (Nystatin Oral Suspension -) 500,000 units PO Q6HPO [facility] Last Admin: 12/02/16 12:18 Dose: 500,000 units Ondansetron HCl (Zofran Injection) 4 mg IVPB Q6H PRN PRN Reason: NAUSEA Last Admin: 11/16/16 10:21 Dose: 4 mg Ramipril (Altace -) 2.5 mg PO DAILY [facility] Last Admin: 12/02/16 09:15 Dose: 2.5 mg Ranitidine HCl (Zantac -) 150 mg PO BID [facility] Last Admin: 12/02/16 09:15 Dose: 150 mg A&P Assessment/Plan (1) Obstructive hydrocephalus secondary to metastasis overall pronosis is grim. She needs to be placed on a palliative protocol and comfort care for terminal illness Will discuss with family. Today she is not reponding in any way to verbal commands (2) Dehydration Assessment/Plan: -resolved Code(s): E86.0 - DEHYDRATION (3) Failure to thrive Assessment/Plan: -continue present care Code(s): [id number] - Qualifiers: Failure to thrive age range: in adult Qualified Code(s): R62.7 - Adult failure to thrive (4) Lung cancer metastatic to bone Assessment/Plan: -as discussed above Code(s): C34.90 - MALIGNANT NEOPLASM OF UNSP PART OF UNSP BRONCHUS OR LUNG C79.51 - SECONDARY MALIGNANT NEOPLASM OF BONE (5) HTN (hypertension) Assessment/Plan: -continue ramipril Code(s): I10 - ESSENTIAL (PRIMARY) HYPERTENSION (6) Headache Assessment/Plan: -resolved Code(s): R51 - HEADACHE Qualifiers: Headache type: unspecified Headache chronicity pattern: unspecified pattern Intractability: not intractable Qualified Code(s): R51 - Headache (6) Metabolic encephalopathy -waxes and wanes -secondary to malignancy (7) Leukocytosis -non-infectious
[2016-12-02] MEDS: SODIUM CHLORIDE 1,000 ML IV SCH (14:18)
[2016-12-03] MEDS: NYSTATIN 500,000 UNITS/5 ML SUSPENSION PO SCH ×4 (01:14→17:29)
[2016-12-03] MEDS: DEXAMETHASONE SOD PHOSPHATE 4 MG/1 ML VIAL IVPB SCH ×2 (06:00→17:29)
[2016-12-03] MEDS: RAMIPRIL 2.5 MG CAPSULE (FP) PO SCH (09:15)
[2016-12-03] MEDS: MAGNESIUM OXIDE 400 MG TABLET (FP) PO SCH ×2 (09:15→21:40)
[2016-12-03] MEDS: RANITIDINE HCL 150 MG TABLET (FP) PO SCH ×2 (09:15→21:40)
[2016-12-03] MEDS: SODIUM CHLORIDE 1,000 ML IV SCH (14:01)
--- NOTE | 2016-12-03 14:16 | PN ---
Progress Note (short form) - Note Progress Note: Non verbal O/E Vital Signs Period Temp Pulse Resp BP Sys/Carlos Pulse Ox Last 24 Hr 97.6 F-99.1 F 71-111 16-18 117-151/64-83 97-98 Awake but does not respond to any verbal commands Heart regular Lungs few scattered rales+ Abd soft Ext b/l trace edema+ Current Medications Dexamethasone Sodium Phosphate (Decadron Injection -) 4 mg IVPB BID@06,18 [facility] Last Admin: 12/03/16 06:00 Dose: 4 mg IV Flush (Mau-Cath Flush) 10 ml IVPUSH PRN PRN PRN Reason: IV MEDS Last Admin: 12/02/16 05:42 Dose: 10 ml Sodium Chloride (Normal Saline -) 1,000 mls @ 42 mls/hr IV ASDIR [facility] Last Admin: 12/03/16 14:01 Dose: 42 mls/hr Magnesium Oxide (Mag-Ox -) 400 mg PO BID [facility] Last Admin: 12/03/16 09:15 Dose: 400 mg Nystatin (Nystatin Oral Suspension -) 500,000 units PO Q6HPO [facility] Last Admin: 12/03/16 12:04 Dose: 500,000 units Ondansetron HCl (Zofran Injection) 4 mg IVPB Q6H PRN PRN Reason: NAUSEA Last Admin: 11/16/16 10:21 Dose: 4 mg Ramipril (Altace -) 2.5 mg PO DAILY [facility] Last Admin: 12/03/16 09:15 Dose: 2.5 mg Ranitidine HCl (Zantac -) 150 mg PO BID [facility] Last Admin: 12/03/16 09:15 Dose: 150 mg Assessment/Plan (1) Obstructive hydrocephalus secondary to metastasis overall pronosis is grim. Had a very lenghty discussion with her a son and his for well over an hour. Futility of curative care discussed and convinced the to sign DNR forms Her is to think over stopping all curative measures and is agreeable to getting her to [place] but will get back to me on those by tomorrow the latest. (2) Dehydration Assessment/Plan: -resolved Code(s): E86.0 - DEHYDRATION (3) Failure to thrive Assessment/Plan: -continue present care Code(s): [id number] - Qualifiers: Failure to thrive age range: in adult Qualified Code(s): R62.7 - Adult failure to thrive (4) Lung cancer metastatic to bone Assessment/Plan: -as discussed above Code(s): C34.90 - MALIGNANT NEOPLASM OF UNSP PART OF UNSP BRONCHUS OR LUNG C79.51 - SECONDARY MALIGNANT NEOPLASM OF BONE (5) HTN (hypertension) Assessment/Plan: -continue ramipril Code(s): I10 - ESSENTIAL (PRIMARY) HYPERTENSION (6) Headache Assessment/Plan: -resolved Code(s): R51 - HEADACHE Qualifiers: Headache type: unspecified Headache chronicity pattern: unspecified pattern Intractability: not intractable Qualified Code(s): R51 - Headache (6) Metabolic encephalopathy -waxes and wanes -secondary to malignancy (7) Leukocytosis -non-infectious
[2016-12-04] MEDS: NYSTATIN 500,000 UNITS/5 ML SUSPENSION PO SCH ×4 (00:10→17:49)
[2016-12-04] MEDS: DEXAMETHASONE SOD PHOSPHATE 4 MG/1 ML VIAL IVPB SCH ×2 (06:20→17:49)
--- NOTE | 2016-12-04 06:40 | PN ---
Progress Note (short form) - Note Progress Note: PATIENT AROUSABLE BUT NONVERBAL. NO CARDIAC / NO RESPIRATORY DISTRESS. DR MASSEY 'S NOTE REVIEWED. PATIENT IS DNR / FAMILY CONSIDERING SUSPENDING FURTHER IT CHEMO . CALVARY PLACEMENT BEING CONSIDERED. Selected Entries Laboratory Tests Laboratory Tests Selected Entries Selected Entries 12/03/16 12/04/16 21:00 05:43 Temperature 98.3 F Pulse Rate 76 Respiratory 20 Rate Blood Pressure 142/96 Blood Pressure 111 Mean O2 Sat by Pulse 98 Oximetry (%) Oxygen Delivery Room Air Method Laboratory Tests 12/01/16 12/01/16 06:30 06:30 WBC 12.3 H RBC 4.15 Hgb 12.3 Hct 37.0 Plt Count 160 Sodium 140 Potassium 4.8 Chloride 105 Carbon Dioxide 26 Anion Gap 9 BUN 39 H Creatinine 1.0 Random Glucose 241 H Calcium 8.6 Phosphorus 2.5 Magnesium 2.3 Laboratory Tests P/E <> AROUSABLE BUT NONVERBAL. HEENT <> NECK / NO BRUITS. COR <> S1 S2 HS DISTANT. CHEST <> DECREASED BS AT BASES. ABD <> SOFT / NO REBOUND / NO GUARDING . EXT <>1 + EDEMA. IMP. METASTATIC LUNG CA LEPTOMENINGEAL CARCINOMATOSIS DEHYDRATION . HTN TYPE 2 DM PLAN : DNR / SUPPORTIVE CARE. CALVARY PLACEMENT POSSIBLE. ONCOLOGY FOLLOWUP. CONTINUE DECADRON.
[2016-12-04] MEDS: SODIUM CHLORIDE 1,000 ML IV SCH (09:43)
[2016-12-04] MEDS: MAGNESIUM OXIDE 400 MG TABLET (FP) PO SCH ×2 (09:44→21:49)
[2016-12-04] MEDS: RAMIPRIL 2.5 MG CAPSULE (FP) PO SCH (09:44)
[2016-12-04] MEDS: RANITIDINE HCL 150 MG TABLET (FP) PO SCH ×2 (09:44→21:49)
--- NOTE | 2016-12-04 13:01 | PATH ---
Cytology Non-Gynecological Report Patient Name: IASBEL STONE [facility]. Rec. #: [id number] /Age/Gender: 1945 (Age: 71) / F Account: [id number] Location: [address] [place] [address]/[facility] Taken: 11/30/2016 Received: 11/30/2016 Reported: 12/04/2016 Physicians: Ned Fuentes M.D. David Tang Norman Rosen, M.D. Specimen(s) Received CEREBRAL SPINAL FLUID Clinical History Lung cancer, carcinomatous meningitis Final Diagnosis CEREBROSPINAL FLUID: SATISFACTORY FOR EVALUATION. SCATTERED DEGENERATED ATYPICAL CELLS PRESENT (SEE COMMENT). 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 Refer to prior CSF specimens (C17-185, C17-198, and C17-207). The current specimen demonstrates scattered atypical cells with degeneration, morphologically somewhat reminiscent of the neoplastic cells seen in the prior specimens. Electronically Signed Abel Lamb M.D. Gross Description Received is approximately 4 cc of clear fluid. Four cytofunnel slides are made.
[2016-12-05] MEDS: DEXAMETHASONE SOD PHOSPHATE 4 MG/1 ML VIAL IVPB SCH ×2 (05:59→17:42)
[2016-12-05] MEDS: NYSTATIN 500,000 UNITS/5 ML SUSPENSION PO SCH ×4 (06:00→17:41)
[2016-12-05] MEDS: RAMIPRIL 2.5 MG CAPSULE (FP) PO SCH (10:28)
[2016-12-05] MEDS: MAGNESIUM OXIDE 400 MG TABLET (FP) PO SCH ×2 (10:28→21:26)
[2016-12-05] MEDS: RANITIDINE HCL 150 MG TABLET (FP) PO SCH ×2 (10:28→21:27)
--- NOTE | 2016-12-05 12:52 | PN ---
Progress Note, Physician Chief Complaint: Unable to obtain. Patient awake but not interacting. at bedside. - Current Medication List Current Medications: Active Medications Dexamethasone Sodium Phosphate (Decadron Injection -) 4 mg IVPB BID@,18 [facility] Last Admin: 12/05/16 05:59 Dose: 4 mg IV Flush (Mau-Cath Flush) 10 ml IVPUSH PRN PRN PRN Reason: IV MEDS Last Admin: 12/02/16 05:42 Dose: 10 ml Sodium Chloride (Normal Saline -) 1,000 mls @ 42 mls/hr IV ASDIR [facility] Last Admin: 12/04/16 09:43 Dose: 42 mls/hr Magnesium Oxide (Mag-Ox -) 400 mg PO BID [facility] Last Admin: 12/05/16 10:28 Dose: 400 mg Nystatin (Nystatin Oral Suspension -) 500,000 units PO Q6HPO [facility] Last Admin: 12/05/16 11:21 Dose: 500,000 units Ondansetron HCl (Zofran Injection) 4 mg IVPB Q6H PRN PRN Reason: NAUSEA Last Admin: 11/16/16 10:21 Dose: 4 mg Ramipril (Altace -) 2.5 mg PO DAILY [facility] Last Admin: 12/05/16 10:28 Dose: 2.5 mg Ranitidine HCl (Zantac -) 150 mg PO BID [facility] Last Admin: 12/05/16 10:28 Dose: 150 mg - Objective Vital Signs: Vital Signs Temperature 97.6 F 12/05/16 08:00 Pulse Rate 76 12/05/16 08:00 Respiratory Rate 18 12/05/16 08:00 Blood Pressure 133/85 12/05/16 08:00 O2 Sat by Pulse Oximetry (%) 100 12/04/16 09:00 Constitutional: Yes: No Distress, Calm Cardiovascular: Yes: Regular Rate and Rhythm. No: Gallop, Murmur, Rub Respiratory: Yes: Regular, CTA Bilaterally. No: Rales, Rhonchi, Wheezes Gastrointestinal: Yes: Normal Bowel Sounds, Soft. No: Distention, Tenderness Extremities: Yes: WNL Edema: No Labs: CBC, BMP 12/01/16 06:30 12/01/16 06:30 INR, PTT INR 0.99 (0.82-1.09) 05/26/17 07:10 Problem List - Problems (1) Obstructive hydrocephalus Code(s): G91.1 - OBSTRUCTIVE HYDROCEPHALUS (2) Dehydration Code(s): E86.0 - DEHYDRATION (3) Failure to thrive Code(s): [id number] - Qualifiers: Failure to thrive age range: in adult Qualified Code(s): R62.7 - Adult failure to thrive (4) Lung cancer metastatic to bone Code(s): C34.90 - MALIGNANT NEOPLASM OF UNSP PART OF UNSP BRONCHUS OR LUNG C79.51 - SECONDARY MALIGNANT NEOPLASM OF BONE (5) HTN (hypertension) Code(s): I10 - ESSENTIAL (PRIMARY) HYPERTENSION (6) Headache Code(s): R51 - HEADACHE Qualifiers: Headache type: unspecified Headache chronicity pattern: unspecified pattern Intractability: not intractable Qualified Code(s): R51 - Headache (7) Metabolic encephalopathy Code(s): G93.41 - METABOLIC ENCEPHALOPATHY (8) UTI (urinary tract infection) due to Enterococcus Code(s): N39.0 - URINARY TRACT INFECTION, SITE NOT SPECIFIED B95.2 - ENTEROCOCCUS THE CAUSE OF DISEASES CLASSIFIED ELSEWHERE Assessment/Plan (1) Obstructive hydrocephalus secondary to metastasis -oncology managing -continue IT methotrexate per their recommendations -repeat cytology still showing malignant cells -case d/w , made aware of very poor prognosis (2) Dehydration Assessment/Plan: -resolved -encourage po intake Code(s): E86.0 - DEHYDRATION (3) Failure to thrive Assessment/Plan: -continue megace at physical therapy -continue supplements Code(s): [id number] - Qualifiers: Failure to thrive age range: in adult Qualified Code(s): R62.7 - Adult failure to thrive (4) Lung cancer metastatic to bone Assessment/Plan: -treatment per oncology Code(s): C34.90 - MALIGNANT NEOPLASM OF UNSP PART OF UNSP BRONCHUS OR LUNG C79.51 - SECONDARY MALIGNANT NEOPLASM OF BONE (5) HTN (hypertension) Assessment/Plan: -continue ramipril Code(s): I10 - ESSENTIAL (PRIMARY) HYPERTENSION (6) Headache Assessment/Plan: -resolved Code(s): R51 - HEADACHE Qualifiers: Headache type: unspecified Headache chronicity pattern: unspecified pattern Intractability: not intractable Qualified Code(s): R51 - Headache (6) Metabolic encephalopathy -waxes and wanes -secondary to malignancy (7) Leukocytosis -non-infectious
[2016-12-05] MEDS: SODIUM CHLORIDE 1,000 ML IV SCH ×2 (14:30→15:03)
[2016-12-06] MEDS: NYSTATIN 500,000 UNITS/5 ML SUSPENSION PO SCH ×4 (01:13→17:26)
[2016-12-06] MEDS: DEXAMETHASONE SOD PHOSPHATE 4 MG/1 ML VIAL IVPB SCH ×2 (05:39→17:26)
[2016-12-06] MEDS: MAGNESIUM OXIDE 400 MG TABLET (FP) PO SCH ×2 (10:49→21:12)
[2016-12-06] MEDS: RANITIDINE HCL 150 MG TABLET (FP) PO SCH ×2 (10:49→21:12)
[2016-12-06] MEDS: RAMIPRIL 2.5 MG CAPSULE (FP) PO SCH (10:49)
--- NOTE | 2016-12-06 11:59 | PN ---
Progress Note, Physician Chief Complaint: Unable to obtain. Patient awake but not interacting. - Current Medication List Current Medications: Active Medications Dexamethasone Sodium Phosphate (Decadron Injection -) 4 mg IVPB BID@,18 [facility] Last Admin: 12/06/16 05:39 Dose: 4 mg IV Flush (Mau-Cath Flush) 10 ml IVPUSH PRN PRN PRN Reason: IV MEDS Last Admin: 12/02/16 05:42 Dose: 10 ml Sodium Chloride (Normal Saline -) 1,000 mls @ 42 mls/hr IV ASDIR [facility] Last Admin: 12/05/16 14:30 Dose: 42 mls/hr Magnesium Oxide (Mag-Ox -) 400 mg PO BID [facility] Last Admin: 12/06/16 10:49 Dose: 400 mg Nystatin (Nystatin Oral Suspension -) 500,000 units PO Q6HPO [facility] Last Admin: 12/06/16 05:39 Dose: 500,000 units Ondansetron HCl (Zofran Injection) 4 mg IVPB Q6H PRN PRN Reason: NAUSEA Last Admin: 11/16/16 10:21 Dose: 4 mg Ramipril (Altace -) 2.5 mg PO DAILY [facility] Last Admin: 12/06/16 10:49 Dose: 2.5 mg Ranitidine HCl (Zantac -) 150 mg PO BID [facility] Last Admin: 12/06/16 10:49 Dose: 150 mg - Objective Vital Signs: Vital Signs Temperature 98.0 F 12/06/16 05:58 Pulse Rate 97 H 12/06/16 05:58 Respiratory Rate 20 12/06/16 05:58 Blood Pressure 111/66 12/06/16 05:58 O2 Sat by Pulse Oximetry (%) 98 12/05/16 22:00 Constitutional: Yes: Well Nourished, No Distress, Calm Cardiovascular: Yes: Regular Rate and Rhythm. No: Gallop, Murmur, Rub Respiratory: Yes: Regular, CTA Bilaterally. No: Rales, Rhonchi, Wheezes Gastrointestinal: Yes: Normal Bowel Sounds, Soft. No: Distention, Tenderness Extremities: Yes: WNL Edema: No Labs: CBC, BMP 12/01/16 06:30 12/01/16 06:30 INR, PTT INR 0.99 (0.82-1.09) 11/30/16 07:10 Problem List - Problems (1) Obstructive hydrocephalus Code(s): G91.1 - OBSTRUCTIVE HYDROCEPHALUS (2) Dehydration Code(s): E86.0 - DEHYDRATION (3) Failure to thrive Code(s): [id number] - Qualifiers: Failure to thrive age range: in adult Qualified Code(s): R62.7 - Adult failure to thrive (4) Lung cancer metastatic to bone Code(s): C34.90 - MALIGNANT NEOPLASM OF UNSP PART OF UNSP BRONCHUS OR LUNG C79.51 - SECONDARY MALIGNANT NEOPLASM OF BONE (5) HTN (hypertension) Code(s): I10 - ESSENTIAL (PRIMARY) HYPERTENSION (6) Headache Code(s): R51 - HEADACHE Qualifiers: Headache type: unspecified Headache chronicity pattern: unspecified pattern Intractability: not intractable Qualified Code(s): R51 - Headache (7) Metabolic encephalopathy Code(s): G93.41 - METABOLIC ENCEPHALOPATHY (8) UTI (urinary tract infection) due to Enterococcus Code(s): N39.0 - URINARY TRACT INFECTION, SITE NOT SPECIFIED B95.2 - ENTEROCOCCUS THE CAUSE OF DISEASES CLASSIFIED ELSEWHERE Assessment/Plan (1) Obstructive hydrocephalus secondary to metastasis (2) Dehydration Code(s): E86.0 - DEHYDRATION (3) Failure to thrive Code(s): [id number] - Qualifiers: Failure to thrive age range: in adult Qualified Code(s): R62.7 - Adult failure to thrive (4) Lung cancer metastatic to bone Code(s): C34.90 - MALIGNANT NEOPLASM OF UNSP PART OF UNSP BRONCHUS OR LUNG C79.51 - SECONDARY MALIGNANT NEOPLASM OF BONE (5) HTN (hypertension) Code(s): I10 - ESSENTIAL (PRIMARY) HYPERTENSION (6) Headache Code(s): R51 - HEADACHE Qualifiers: Headache type: unspecified Headache chronicity pattern: unspecified pattern Intractability: not intractable Qualified Code(s): R51 - Headache (6) Metabolic encephalopathy (7) Leukocytosis Plan -continue current management -plan for another dose of IT methotrexate tomorrow -case d/w oncology -Dr Mart to discuss prognosis with family -very poor prognosis, would benefit from hospice care
[2016-12-06] MEDS: SODIUM CHLORIDE 1,000 ML IV SCH (17:28)
--- NOTE | 2016-12-06 23:20 | PN ---
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
[2016-12-07] MEDS: NYSTATIN 500,000 UNITS/5 ML SUSPENSION PO SCH ×3 (00:53→13:02)
[2016-12-07] MEDS: DEXAMETHASONE SOD PHOSPHATE 4 MG/1 ML VIAL IVPB SCH (05:33)
[2016-12-07 07:34] LABS: MCH 30.5 pg (25.7-33.7); MCHC 34.2 g/dl (32.0-36.0); MEAN CELL VOLUME 89.1 fl (80-96); MEAN PLT VOLUME 8.1 fl (7.5-11.1); PLATELET COUNT 109 K/MM3 (134-434); RDW 15.4 % (11.6-15.6); WHITE BLOOD COUNT 8.8 K/mm3 (4.0-10.0)
[2016-12-07 08:03] LABS: INR 0.99 (0.82-1.09); PROTHROMBIN TIME (PATIENT) 10.9 SEC (9.98-11.88)
[2016-12-07 08:06] LABS: ACTIVATED PTT 22.1 SECONDS (26.9-34.4)
[2016-12-07 09:36] LABS: PLATELET ESTIMATE DECREASED (NORMAL)
[2016-12-07] MEDS: MAGNESIUM OXIDE 400 MG TABLET (FP) PO SCH ×2 (09:52→21:39)
[2016-12-07] MEDS: RANITIDINE HCL 150 MG TABLET (FP) PO SCH ×2 (09:53→21:39)
[2016-12-07] MEDS: RAMIPRIL 2.5 MG CAPSULE (FP) PO SCH (09:53)
[2016-12-07] MEDS ORDERED: METHOTREXATE SODIUM IT ONE (11:00)
--- NOTE | 2016-12-07 11:53 | PN ---
Progress Note, Physician Chief Complaint: Unable to obtain. - Current Medication List Current Medications: Active Medications Dexamethasone Sodium Phosphate (Decadron Injection -) 4 mg IVPB BID@,18 [facility] Last Admin: 12/07/16 05:33 Dose: 4 mg IV Flush (Mau-Cath Flush) 10 ml IVPUSH PRN PRN PRN Reason: IV MEDS Last Admin: 12/02/16 05:42 Dose: 10 ml Sodium Chloride (Normal Saline -) 1,000 mls @ 42 mls/hr IV ASDIR [facility] Last Admin: 12/06/16 17:28 Dose: 42 mls/hr Magnesium Oxide (Mag-Ox -) 400 mg PO BID [facility] Last Admin: 12/07/16 09:52 Dose: 400 mg Nystatin (Nystatin Oral Suspension -) 500,000 units PO Q6HPO [facility] Last Admin: 12/07/16 05:33 Dose: 500,000 units Ondansetron HCl (Zofran Injection) 4 mg IVPB Q6H PRN PRN Reason: NAUSEA Last Admin: 11/16/16 10:21 Dose: 4 mg Ramipril (Altace -) 2.5 mg PO DAILY [facility] Last Admin: 12/07/16 09:53 Dose: 2.5 mg Ranitidine HCl (Zantac -) 150 mg PO BID [facility] Last Admin: 12/07/16 09:53 Dose: 150 mg - Objective Vital Signs: Vital Signs Temperature 97.7 F 12/07/16 10:00 Pulse Rate 128 H 12/07/16 10:00 Respiratory Rate 18 12/07/16 10:00 Blood Pressure 128/88 12/07/16 10:00 O2 Sat by Pulse Oximetry (%) 98 12/06/16 22:00 Constitutional: Yes: No Distress, Calm Cardiovascular: Yes: Regular Rate and Rhythm. No: Gallop, Murmur, Rub Respiratory: Yes: Regular, CTA Bilaterally. No: Rales, Rhonchi, Wheezes Gastrointestinal: Yes: Normal Bowel Sounds, Soft. No: Distention, Tenderness Extremities: Yes: WNL Edema: No Labs: CBC, BMP 12/07/16 06:25 12/01/16 06:30 INR, PTT INR 0.99 (0.82-1.09) 12/07/16 06:25 Fibrinogen 235.0 mg/dL (238-498) L 12/07/16 06:25 Problem List - Problems (1) Obstructive hydrocephalus Code(s): G91.1 - OBSTRUCTIVE HYDROCEPHALUS (2) Dehydration Code(s): E86.0 - DEHYDRATION (3) Failure to thrive Code(s): [id number] - Qualifiers: Failure to thrive age range: in adult Qualified Code(s): R62.7 - Adult failure to thrive (4) Lung cancer metastatic to bone Code(s): C34.90 - MALIGNANT NEOPLASM OF UNSP PART OF UNSP BRONCHUS OR LUNG C79.51 - SECONDARY MALIGNANT NEOPLASM OF BONE (5) HTN (hypertension) Code(s): I10 - ESSENTIAL (PRIMARY) HYPERTENSION (6) Headache Code(s): R51 - HEADACHE Qualifiers: Headache type: unspecified Headache chronicity pattern: unspecified pattern Intractability: not intractable Qualified Code(s): R51 - Headache (7) Metabolic encephalopathy Code(s): G93.41 - METABOLIC ENCEPHALOPATHY (8) UTI (urinary tract infection) due to Enterococcus Code(s): N39.0 - URINARY TRACT INFECTION, SITE NOT SPECIFIED B95.2 - ENTEROCOCCUS THE CAUSE OF DISEASES CLASSIFIED ELSEWHERE Assessment/Plan (1) Obstructive hydrocephalus secondary to metastasis (2) Dehydration Code(s): E86.0 - DEHYDRATION (3) Failure to thrive Code(s): [id number] - Qualifiers: Failure to thrive age range: in adult Qualified Code(s): R62.7 - Adult failure to thrive (4) Lung cancer metastatic to bone Code(s): C34.90 - MALIGNANT NEOPLASM OF UNSP PART OF UNSP BRONCHUS OR LUNG C79.51 - SECONDARY MALIGNANT NEOPLASM OF BONE (5) HTN (hypertension) Code(s): I10 - ESSENTIAL (PRIMARY) HYPERTENSION (6) Headache Code(s): R51 - HEADACHE Qualifiers: Headache type: unspecified Headache chronicity pattern: unspecified pattern Intractability: not intractable Qualified Code(s): R51 - Headache (6) Metabolic encephalopathy (7) Leukocytosis Plan -case d/w Dr Mart -plan for IT methotrexate today -not responding -very poor prognosis -? [place] vs home with hospice
[2016-12-07 14:07] LABS: CSF APPEARANCE CLEAR; CSF COLOR COLORLESS
[2016-12-07 14:08] LABS: CSF MONOCYTES 30 %; CSF NEUTROPHILS 22 %; CSF RBC 1 /mm3
[2016-12-07 15:14] LABS: GLUCOSE,CSF 130 mg/dL (50-80)
[2016-12-07] MEDS: SODIUM CHLORIDE 1,000 ML IV SCH (21:39)
--- NOTE | 2016-12-08 00:03 | PN ---
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
[2016-12-08] MEDS: NYSTATIN 500,000 UNITS/5 ML SUSPENSION PO SCH ×5 (00:15→18:03)
[2016-12-08] MEDS: DEXAMETHASONE SOD PHOSPHATE 4 MG/1 ML VIAL IVPB SCH ×3 (05:33→18:03)
[2016-12-08] MEDS: RANITIDINE HCL 150 MG TABLET (FP) PO SCH ×2 (11:18→21:28)
[2016-12-08] MEDS: MAGNESIUM OXIDE 400 MG TABLET (FP) PO SCH ×2 (11:19→21:28)
[2016-12-08] MEDS: RAMIPRIL 2.5 MG CAPSULE (FP) PO SCH (11:19)
--- NOTE | 2016-12-08 11:23 | PN ---
Progress Note, Physician Chief Complaint: Mrs Walter says pa, unable to obtain further subjective - Current Medication List Current Medications: Active Medications Dexamethasone Sodium Phosphate (Decadron Injection -) 4 mg IVPB BID@,18 [facility] Last Admin: 12/08/16 07:44 Dose: Not Given IV Flush (Mau-Cath Flush) 10 ml IVPUSH PRN PRN PRN Reason: IV MEDS Last Admin: 12/02/16 05:42 Dose: 10 ml Sodium Chloride (Normal Saline -) 1,000 mls @ 42 mls/hr IV ASDIR [facility] Last Admin: 12/07/16 21:39 Dose: 42 mls/hr Magnesium Oxide (Mag-Ox -) 400 mg PO BID [facility] Last Admin: 12/08/16 11:19 Dose: 400 mg Nystatin (Nystatin Oral Suspension -) 500,000 units PO Q6HPO [facility] Last Admin: 12/08/16 07:45 Dose: Not Given Ondansetron HCl (Zofran Injection) 4 mg IVPB Q6H PRN PRN Reason: NAUSEA Last Admin: 11/16/16 10:21 Dose: 4 mg Ramipril (Altace -) 2.5 mg PO DAILY [facility] Last Admin: 12/08/16 11:19 Dose: 2.5 mg Ranitidine HCl (Zantac -) 150 mg PO BID [facility] Last Admin: 12/08/16 11:18 Dose: 150 mg - Objective Vital Signs: Vital Signs Temperature 97.9 F 12/08/16 11:17 Pulse Rate 103 H 12/08/16 11:17 Respiratory Rate 18 12/08/16 11:17 Blood Pressure 152/85 12/08/16 11:17 O2 Sat by Pulse Oximetry (%) 98 12/08/16 11:03 Constitutional: Yes: Well Nourished, No Distress, Calm Cardiovascular: Yes: Regular Rate and Rhythm. No: Gallop, Murmur, Rub Respiratory: Yes: Regular, CTA Bilaterally. No: Rales, Rhonchi, Wheezes Gastrointestinal: Yes: Normal Bowel Sounds, Soft. No: Distention, Tenderness Extremities: Yes: WNL Edema: No Labs: CBC, BMP 12/07/16 06:25 12/01/16 06:30 INR, PTT INR 0.99 (0.82-1.09) 12/07/16 06:25 Fibrinogen 235.0 mg/dL (238-498) L 12/07/16 06:25 Problem List - Problems (1) Obstructive hydrocephalus Code(s): G91.1 - OBSTRUCTIVE HYDROCEPHALUS (2) Dehydration Code(s): E86.0 - DEHYDRATION (3) Failure to thrive Code(s): [id number] - Qualifiers: Failure to thrive age range: in adult Qualified Code(s): R62.7 - Adult failure to thrive (4) Lung cancer metastatic to bone Code(s): C34.90 - MALIGNANT NEOPLASM OF UNSP PART OF UNSP BRONCHUS OR LUNG C79.51 - SECONDARY MALIGNANT NEOPLASM OF BONE (5) HTN (hypertension) Code(s): I10 - ESSENTIAL (PRIMARY) HYPERTENSION (6) Headache Code(s): R51 - HEADACHE Qualifiers: Headache type: unspecified Headache chronicity pattern: unspecified pattern Intractability: not intractable Qualified Code(s): R51 - Headache (7) Metabolic encephalopathy Code(s): G93.41 - METABOLIC ENCEPHALOPATHY (8) UTI (urinary tract infection) due to Enterococcus Code(s): N39.0 - URINARY TRACT INFECTION, SITE NOT SPECIFIED B95.2 - ENTEROCOCCUS THE CAUSE OF DISEASES CLASSIFIED ELSEWHERE Assessment/Plan (1) Obstructive hydrocephalus secondary to metastasis (2) Dehydration Code(s): E86.0 - DEHYDRATION (3) Failure to thrive Code(s): [id number] - Qualifiers: Failure to thrive age range: in adult Qualified Code(s): R62.7 - Adult failure to thrive (4) Lung cancer metastatic to bone Code(s): C34.90 - MALIGNANT NEOPLASM OF UNSP PART OF UNSP BRONCHUS OR LUNG C79.51 - SECONDARY MALIGNANT NEOPLASM OF BONE (5) HTN (hypertension) Code(s): I10 - ESSENTIAL (PRIMARY) HYPERTENSION (6) Headache Code(s): R51 - HEADACHE Qualifiers: Headache type: unspecified Headache chronicity pattern: unspecified pattern Intractability: not intractable Qualified Code(s): R51 - Headache (6) Metabolic encephalopathy (7) Leukocytosis Plan -s/p final dose of IT methotrexate -continue current management -planning for [place]
[2016-12-08] MEDS: SODIUM CHLORIDE 1,000 ML IV SCH ×2 (19:00→19:01)
[2016-12-09] MEDS: NYSTATIN 500,000 UNITS/5 ML SUSPENSION PO SCH ×5 (00:28→23:59)
[2016-12-09] MEDS: DEXAMETHASONE SOD PHOSPHATE 4 MG/1 ML VIAL IVPB SCH ×2 (05:39→17:14)
[2016-12-09] MEDS: RANITIDINE HCL 150 MG TABLET (FP) PO SCH ×2 (09:29→21:24)
[2016-12-09] MEDS: MAGNESIUM OXIDE 400 MG TABLET (FP) PO SCH ×2 (09:29→21:24)
[2016-12-09] MEDS: RAMIPRIL 2.5 MG CAPSULE (FP) PO SCH (09:30)
--- NOTE | 2016-12-09 11:50 | PN ---
Progress Note, Physician Chief Complaint: Unable to obtain, patient awake but non-verbal today - Current Medication List Current Medications: Active Medications Dexamethasone Sodium Phosphate (Decadron Injection -) 4 mg IVPB BID@,18 [facility] Last Admin: 12/09/16 05:39 Dose: 4 mg IV Flush (Mau-Cath Flush) 10 ml IVPUSH PRN PRN PRN Reason: IV MEDS Last Admin: 12/02/16 05:42 Dose: 10 ml Sodium Chloride (Normal Saline -) 1,000 mls @ 42 mls/hr IV ASDIR [facility] Last Admin: 12/08/16 19:01 Dose: 42 mls/hr Magnesium Oxide (Mag-Ox -) 400 mg PO BID [facility] Last Admin: 12/09/16 09:29 Dose: 400 mg Nystatin (Nystatin Oral Suspension -) 500,000 units PO Q6HPO [facility] Last Admin: 12/09/16 11:30 Dose: 500,000 units Ondansetron HCl (Zofran Injection) 4 mg IVPB Q6H PRN PRN Reason: NAUSEA Last Admin: 11/16/16 10:21 Dose: 4 mg Ramipril (Altace -) 2.5 mg PO DAILY [facility] Last Admin: 12/09/16 09:30 Dose: 2.5 mg Ranitidine HCl (Zantac -) 150 mg PO BID [facility] Last Admin: 12/09/16 09:29 Dose: 150 mg - Objective Vital Signs: Vital Signs Temperature 98.4 F 12/09/16 09:00 Pulse Rate 91 H 12/09/16 11:27 Respiratory Rate 20 12/09/16 09:00 Blood Pressure 156/88 12/09/16 09:00 O2 Sat by Pulse Oximetry (%) 97 12/09/16 11:27 Constitutional: Yes: Well Nourished, No Distress, Calm Cardiovascular: Yes: Regular Rate and Rhythm. No: Gallop, Murmur, Rub Respiratory: Yes: Regular, CTA Bilaterally. No: Rales, Rhonchi, Wheezes Gastrointestinal: Yes: Normal Bowel Sounds, Soft. No: Distention, Tenderness Extremities: Yes: WNL Edema: No Labs: CBC, BMP 12/07/16 06:25 12/01/16 06:30 INR, PTT INR 0.99 (0.82-1.09) 12/07/16 06:25 Fibrinogen 235.0 mg/dL (238-498) L 12/07/16 06:25 Problem List - Problems (1) Obstructive hydrocephalus Code(s): G91.1 - OBSTRUCTIVE HYDROCEPHALUS (2) Dehydration Code(s): E86.0 - DEHYDRATION (3) Failure to thrive Code(s): [id number] - Qualifiers: Failure to thrive age range: in adult Qualified Code(s): R62.7 - Adult failure to thrive (4) Lung cancer metastatic to bone Code(s): C34.90 - MALIGNANT NEOPLASM OF UNSP PART OF UNSP BRONCHUS OR LUNG C79.51 - SECONDARY MALIGNANT NEOPLASM OF BONE (5) HTN (hypertension) Code(s): I10 - ESSENTIAL (PRIMARY) HYPERTENSION (6) Headache Code(s): R51 - HEADACHE Qualifiers: Headache type: unspecified Headache chronicity pattern: unspecified pattern Intractability: not intractable Qualified Code(s): R51 - Headache (7) Metabolic encephalopathy Code(s): G93.41 - METABOLIC ENCEPHALOPATHY (8) UTI (urinary tract infection) due to Enterococcus Code(s): N39.0 - URINARY TRACT INFECTION, SITE NOT SPECIFIED B95.2 - ENTEROCOCCUS THE CAUSE OF DISEASES CLASSIFIED ELSEWHERE Assessment/Plan (1) Obstructive hydrocephalus secondary to metastasis (2) Dehydration Code(s): E86.0 - DEHYDRATION (3) Failure to thrive Code(s): [id number] - Qualifiers: Failure to thrive age range: in adult Qualified Code(s): R62.7 - Adult failure to thrive (4) Lung cancer metastatic to bone Code(s): C34.90 - MALIGNANT NEOPLASM OF UNSP PART OF UNSP BRONCHUS OR LUNG C79.51 - SECONDARY MALIGNANT NEOPLASM OF BONE (5) HTN (hypertension) Code(s): I10 - ESSENTIAL (PRIMARY) HYPERTENSION (6) Headache Code(s): R51 - HEADACHE Qualifiers: Headache type: unspecified Headache chronicity pattern: unspecified pattern Intractability: not intractable Qualified Code(s): R51 - Headache (6) Metabolic encephalopathy (7) Leukocytosis Plan -s/p final dose of IT methotrexate -continue current management -planning for [place]
--- NOTE | 2016-12-09 14:02 | PN ---
Progress Note (short form) - Note Progress Note: ID Asked by nurse to examine buttock rash + maculo-papular lesions on both buttocks' less than 1cm marian., some pustular Rash not c/w VZV Suspect folliculitis Will order topical bacitracin
[2016-12-09] MEDS: BACITRACIN 30 GM TUBE TOPICAL OINTMENT TP SCH (15:29)
[2016-12-09] MEDS: SODIUM CHLORIDE 1,000 ML IV SCH ×2 (15:30→17:15)
[2016-12-10] MEDS: NYSTATIN 500,000 UNITS/5 ML SUSPENSION PO SCH ×3 (05:56→18:11)
[2016-12-10] MEDS: DEXAMETHASONE SOD PHOSPHATE 4 MG/1 ML VIAL IVPB SCH ×2 (05:56→18:11)
[2016-12-10] MEDS: MAGNESIUM OXIDE 400 MG TABLET (FP) PO SCH ×2 (10:34→21:47)
[2016-12-10] MEDS: RANITIDINE HCL 150 MG TABLET (FP) PO SCH ×2 (10:34→21:47)
[2016-12-10] MEDS: RAMIPRIL 2.5 MG CAPSULE (FP) PO SCH (10:34)
[2016-12-10] MEDS: BACITRACIN 30 GM TUBE TOPICAL OINTMENT TP SCH (10:36)
--- NOTE | 2016-12-10 12:30 | PN ---
Progress Note, Physician Chief Complaint: Unable to obtain, patient remains non-verbal. - Current Medication List Current Medications: Active Medications Bacitracin (Bacitracin -) 1 applic TP DAILY [facility] Last Admin: 12/10/16 10:36 Dose: 1 applic Dexamethasone Sodium Phosphate (Decadron Injection -) 4 mg IVPB BID@,18 [facility] Last Admin: 12/10/16 05:56 Dose: 4 mg IV Flush (Mau-Cath Flush) 10 ml IVPUSH PRN PRN PRN Reason: IV MEDS Last Admin: 12/02/16 05:42 Dose: 10 ml Sodium Chloride (Normal Saline -) 1,000 mls @ 42 mls/hr IV ASDIR [facility] Last Admin: 12/09/16 17:15 Dose: 42 mls/hr Magnesium Oxide (Mag-Ox -) 400 mg PO BID [facility] Last Admin: 12/10/16 10:34 Dose: 400 mg Nystatin (Nystatin Oral Suspension -) 500,000 units PO Q6HPO [facility] Last Admin: 12/10/16 11:34 Dose: 500,000 units Ondansetron HCl (Zofran Injection) 4 mg IVPB Q6H PRN PRN Reason: NAUSEA Last Admin: 11/16/16 10:21 Dose: 4 mg Ramipril (Altace -) 2.5 mg PO DAILY [facility] Last Admin: 12/10/16 10:34 Dose: 2.5 mg Ranitidine HCl (Zantac -) 150 mg PO BID [facility] Last Admin: 12/10/16 10:34 Dose: 150 mg - Objective Vital Signs: Vital Signs Temperature 98.3 F 12/10/16 09:00 Pulse Rate 98 H 12/10/16 09:00 Respiratory Rate 20 12/10/16 09:00 Blood Pressure 149/95 12/10/16 09:00 O2 Sat by Pulse Oximetry (%) 97 12/10/16 09:00 Constitutional: Yes: Well Nourished, No Distress, Calm Cardiovascular: Yes: Regular Rate and Rhythm. No: Gallop, Murmur, Rub Respiratory: Yes: Regular, CTA Bilaterally. No: Rales, Rhonchi, Wheezes Gastrointestinal: Yes: Normal Bowel Sounds, Soft. No: Distention, Tenderness Extremities: Yes: WNL Edema: No Labs: CBC, BMP 12/07/16 06:25 12/01/16 06:30 INR, PTT INR 0.99 (0.82-1.09) 12/07/16 06:25 Fibrinogen 235.0 mg/dL (238-498) L 12/07/16 06:25 Problem List - Problems (1) Obstructive hydrocephalus Code(s): G91.1 - OBSTRUCTIVE HYDROCEPHALUS (2) Dehydration Code(s): E86.0 - DEHYDRATION (3) Failure to thrive Code(s): [id number] - Qualifiers: Failure to thrive age range: in adult Qualified Code(s): R62.7 - Adult failure to thrive (4) Lung cancer metastatic to bone Code(s): C34.90 - MALIGNANT NEOPLASM OF UNSP PART OF UNSP BRONCHUS OR LUNG C79.51 - SECONDARY MALIGNANT NEOPLASM OF BONE (5) HTN (hypertension) Code(s): I10 - ESSENTIAL (PRIMARY) HYPERTENSION (6) Headache Code(s): R51 - HEADACHE Qualifiers: Headache type: unspecified Headache chronicity pattern: unspecified pattern Intractability: not intractable Qualified Code(s): R51 - Headache (7) Metabolic encephalopathy Code(s): G93.41 - METABOLIC ENCEPHALOPATHY (8) UTI (urinary tract infection) due to Enterococcus Code(s): N39.0 - URINARY TRACT INFECTION, SITE NOT SPECIFIED B95.2 - ENTEROCOCCUS THE CAUSE OF DISEASES CLASSIFIED ELSEWHERE Assessment/Plan (1) Obstructive hydrocephalus secondary to metastasis (2) Dehydration Code(s): E86.0 - DEHYDRATION (3) Failure to thrive Code(s): [id number] - Qualifiers: Failure to thrive age range: in adult Qualified Code(s): R62.7 - Adult failure to thrive (4) Lung cancer metastatic to bone Code(s): C34.90 - MALIGNANT NEOPLASM OF UNSP PART OF UNSP BRONCHUS OR LUNG C79.51 - SECONDARY MALIGNANT NEOPLASM OF BONE (5) HTN (hypertension) Code(s): I10 - ESSENTIAL (PRIMARY) HYPERTENSION (6) Headache Code(s): R51 - HEADACHE Qualifiers: Headache type: unspecified Headache chronicity pattern: unspecified pattern Intractability: not intractable Qualified Code(s): R51 - Headache (6) Metabolic encephalopathy (7) Leukocytosis Plan -case d/w hematology -hematology to d/w family about further treatment -patient not responding to IT methotrexate -possible discharge to Why
--- NOTE | 2016-12-10 13:07 | PATH ---
Cytology Non-Gynecological Report Patient Name: ISABEL STONE [facility]. Rec. #: [id number] /Age/Gender: 1945 (Age: 71) / F Account: [id number] Location: [address] [place] [address] Taken: 12/07/2016 Received: 12/07/2016 Reported: 12/10/2016 Physicians: Brittny Soria M.D. Specimen(s) Received CEREBRAL SPINAL FLUID Clinical History Lung cancer, leptomeningeal disease Final Diagnosis CEREBROSPINAL FLUID: SATISFACTORY FOR EVALUATION. POSITIVE FOR MALIGNANT CELLS. INVOLVEMENT BY ADENOCARCINOMA (SEE COMMENT). Comment: Scattered neoplastic cells are seen, morphologically similar to the prior specimens ([id number], C17-198). Electronically Signed Abel Lamb M.D. Gross Description Received is10 cc of clear fluid fresh. Four cytofunnel slides are made.
[2016-12-10] MEDS: SODIUM CHLORIDE 1,000 ML IV SCH ×2 (18:00→18:02)
--- NOTE | 2016-12-10 22:42 | PN ---
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
[2016-12-11] MEDS: NYSTATIN 500,000 UNITS/5 ML SUSPENSION PO SCH ×4 (00:30→17:57)
[2016-12-11] MEDS: DEXAMETHASONE SOD PHOSPHATE 4 MG/1 ML VIAL IVPB SCH ×2 (06:15→17:57)
[2016-12-11] MEDS: RAMIPRIL 2.5 MG CAPSULE (FP) PO SCH (10:10)
[2016-12-11] MEDS: BACITRACIN 30 GM TUBE TOPICAL OINTMENT TP SCH (10:10)
[2016-12-11] MEDS: RANITIDINE HCL 150 MG TABLET (FP) PO SCH ×2 (10:10→21:49)
[2016-12-11] MEDS: MAGNESIUM OXIDE 400 MG TABLET (FP) PO SCH ×2 (10:10→21:49)
--- NOTE | 2016-12-11 14:47 | PN ---
Progress Note, Physician Chief Complaint: Unable to obtain, patient remains non-verbal. - Current Medication List Current Medications: Active Medications Bacitracin (Bacitracin -) 1 applic TP DAILY [facility] Last Admin: 12/11/16 10:10 Dose: 1 applic Dexamethasone Sodium Phosphate (Decadron Injection -) 4 mg IVPB BID@18 [facility] Last Admin: 12/11/16 06:15 Dose: 4 mg IV Flush (Mau-Cath Flush) 10 ml IVPUSH PRN PRN PRN Reason: IV MEDS Last Admin: 12/02/16 05:42 Dose: 10 ml Sodium Chloride (Normal Saline -) 1,000 mls @ 42 mls/hr IV ASDIR [facility] Last Admin: 12/10/16 18:02 Dose: 42 mls/hr Magnesium Oxide (Mag-Ox -) 400 mg PO BID [facility] Last Admin: 12/11/16 10:10 Dose: 400 mg Nystatin (Nystatin Oral Suspension -) 500,000 units PO Q6HPO [facility] Last Admin: 12/11/16 12:08 Dose: Not Given Ondansetron HCl (Zofran Injection) 4 mg IVPB Q6H PRN PRN Reason: NAUSEA Last Admin: 11/16/16 10:21 Dose: 4 mg Ramipril (Altace -) 2.5 mg PO DAILY [facility] Last Admin: 12/11/16 10:10 Dose: 2.5 mg Ranitidine HCl (Zantac -) 150 mg PO BID [facility] Last Admin: 12/11/16 10:10 Dose: 150 mg - Objective Vital Signs: Vital Signs Temperature 98.2 F 12/11/16 13:55 Pulse Rate 120 H 12/11/16 13:55 Respiratory Rate 20 12/11/16 13:55 Blood Pressure 151/103 12/11/16 09:00 O2 Sat by Pulse Oximetry (%) 97 12/11/16 09:00 Constitutional: Yes: No Distress, Calm Cardiovascular: Yes: Regular Rate and Rhythm. No: Gallop, Murmur, Rub Respiratory: Yes: Regular, CTA Bilaterally. No: Rales, Rhonchi, Wheezes Gastrointestinal: Yes: Normal Bowel Sounds, Soft. No: Distention, Tenderness Extremities: Yes: WNL Edema: No Labs: CBC, BMP 12/07/16 06:25 12/01/16 06:30 INR, PTT INR 0.99 (0.82-1.09) 12/07/16 06:25 Fibrinogen 235.0 mg/dL (238-498) L 12/07/16 06:25 Problem List - Problems (1) Obstructive hydrocephalus Code(s): G91.1 - OBSTRUCTIVE HYDROCEPHALUS (2) Dehydration Code(s): E86.0 - DEHYDRATION (3) Failure to thrive Code(s): [id number] - Qualifiers: Failure to thrive age range: in adult Qualified Code(s): R62.7 - Adult failure to thrive (4) Lung cancer metastatic to bone Code(s): C34.90 - MALIGNANT NEOPLASM OF UNSP PART OF UNSP BRONCHUS OR LUNG C79.51 - SECONDARY MALIGNANT NEOPLASM OF BONE (5) HTN (hypertension) Code(s): I10 - ESSENTIAL (PRIMARY) HYPERTENSION (6) Headache Code(s): R51 - HEADACHE Qualifiers: Headache type: unspecified Headache chronicity pattern: unspecified pattern Intractability: not intractable Qualified Code(s): R51 - Headache (7) Metabolic encephalopathy Code(s): G93.41 - METABOLIC ENCEPHALOPATHY (8) UTI (urinary tract infection) due to Enterococcus Code(s): N39.0 - URINARY TRACT INFECTION, SITE NOT SPECIFIED B95.2 - ENTEROCOCCUS THE CAUSE OF DISEASES CLASSIFIED ELSEWHERE Assessment/Plan (1) Obstructive hydrocephalus secondary to metastasis (2) Dehydration Code(s): E86.0 - DEHYDRATION (3) Failure to thrive Code(s): [id number] - Qualifiers: Failure to thrive age range: in adult Qualified Code(s): R62.7 - Adult failure to thrive (4) Lung cancer metastatic to bone Code(s): C34.90 - MALIGNANT NEOPLASM OF UNSP PART OF UNSP BRONCHUS OR LUNG C79.51 - SECONDARY MALIGNANT NEOPLASM OF BONE (5) HTN (hypertension) Code(s): I10 - ESSENTIAL (PRIMARY) HYPERTENSION (6) Headache Code(s): R51 - HEADACHE Qualifiers: Headache type: unspecified Headache chronicity pattern: unspecified pattern Intractability: not intractable Qualified Code(s): R51 - Headache (6) Metabolic encephalopathy (7) Leukocytosis Plan -case d/w family -planning for [place]
--- NOTE | 2016-12-11 19:21 | PN ---
Progress Note (short form) - Note Progress Note: Patient seen and examined Non responsive to mild chest rub Non communicative , Last Vital Signs Temp Pulse Resp BP Pulse Ox 98.2 F 120 H 20 151/103 97 12/11/16 13:55 12/11/16 13:55 12/11/16 13:55 12/11/16 09:00 12/11/16 09:00 Poor inspiratory effort Diminished breath sounds Cor-RSR Soft abdomen Minimal flicker of LE's with touch CBC, BMP 12/07/16 06:25 12/01/16 06:30 Current Medications Generic Name Dose Route Start Last Admin Trade Name Freq PRN Reason Stop Dose Admin Bacitracin 1 applic 12/09/16 14:15 12/11/16 10:10 Bacitracin - TP 1 applic DAILY [facility] Administration Dexamethasone Sodium Phosphate 4 mg 11/21/16 06:00 12/11/16 17:57 Decadron Injection - IVPB 4 mg BID@06,18 [facility] Administration IV Flush 10 ml 11/21/16 12:46 12/02/16 05:42 Mau-Cath Flush IVPUSH 10 ml PRN PRN Administration IV MEDS Sodium Chloride 1,000 mls @ 42 mls/hr 11/27/16 07:15 12/10/16 18:02 Normal Saline - IV 42 mls/hr ASDIR [facility] Administration Magnesium Oxide 400 mg 11/14/16 22:00 12/11/16 10:10 Mag-Ox - PO 400 mg BID [facility] Administration Nystatin 500,000 units 11/09/16 00:00 12/11/16 17:57 Nystatin Oral Suspension - PO 500,000 units Q6HPO [facility] Administration Ondansetron HCl 4 mg 11/07/16 06:07 11/16/16 10:21 Zofran Injection IVPB 4 mg Q6H PRN Administration NAUSEA Ramipril 2.5 mg 11/08/16 10:00 12/11/16 10:10 Altace - PO 2.5 mg DAILY [facility] Administration Ranitidine HCl 150 mg 11/23/16 10:00 12/11/16 10:10 Zantac - PO 150 mg BID [facility] Administration Impression: Lung ca with carcinomatous meningitis S/P Intrathecal MTX x 6 with no clinical response Hospice transfer appropriate No further treatments planned. Taper steroids
[2016-12-11] MEDS: SODIUM CHLORIDE 1,000 ML IV SCH (20:00)
[2016-12-11] MEDS: PORTA CATH FLUSH 10 ML IVPUSH PRN (21:50)
[2016-12-11] MEDS ORDERED: PORTA CATH FLUSH 10 ML IVPUSH ONE (23:07)
[2016-12-12] MEDS: NYSTATIN 500,000 UNITS/5 ML SUSPENSION PO SCH ×3 (00:29→12:25)
[2016-12-12] MEDS: DEXAMETHASONE SOD PHOSPHATE 4 MG/1 ML VIAL IVPB SCH ×2 (01:35→10:44)
[2016-12-12 06:11] VITALS: BP 150/92; PULSE 98; TEMP 98.2
[2016-12-12] MEDS: BACITRACIN 30 GM TUBE TOPICAL OINTMENT TP SCH (10:44)
[2016-12-12] MEDS: MAGNESIUM OXIDE 400 MG TABLET (FP) PO SCH (10:45)
[2016-12-12] MEDS: RAMIPRIL 2.5 MG CAPSULE (FP) PO SCH (10:45)
[2016-12-12] MEDS: RANITIDINE HCL 150 MG TABLET (FP) PO SCH (10:45)
--- NOTE | 2016-12-12 11:56 | DS ---
Physical Examination Vital Signs: Vital Signs Temperature 98.2 F 12/12/16 06:00 Pulse Rate 98 H 12/12/16 06:00 Respiratory Rate 18 12/12/16 06:00 Blood Pressure 150/92 12/12/16 06:00 O2 Sat by Pulse Oximetry (%) 96 12/11/16 21:00 Constitutional: Yes: No Distress Cardiovascular: Yes: Regular Rate and Rhythm. No: Gallop, Murmur, Rub Respiratory: Yes: Regular, CTA Bilaterally. No: Rales, Rhonchi, Wheezes Gastrointestinal: Yes: Normal Bowel Sounds, Soft. No: Distention, Tenderness Extremities: Yes: WNL Edema: No Labs: CBC, BMP 12/07/16 06:25 12/01/16 06:30 Discharge Summary Reason For Visit: AMS DEHYDRATION LUNG CA METS BONE Current Active Problems Altered mental status (Acute) Dehydration (Acute) Failure to thrive (Acute) Lung cancer metastatic to bone (Acute) Metabolic encephalopathy (Acute) Obstructive hydrocephalus (Acute) UTI (urinary tract infection) due to Enterococcus (Acute) Hospital Course: (1) Obstructive hydrocephalus Code(s): G91.1 - OBSTRUCTIVE HYDROCEPHALUS (2) Dehydration Code(s): E86.0 - DEHYDRATION (3) Failure to thrive Code(s): [id number] - Qualifiers: Failure to thrive age range: in adult Qualified Code(s): R62.7 - Adult failure to thrive (4) Lung cancer metastatic to bone Code(s): C34.90 - MALIGNANT NEOPLASM OF UNSP PART OF UNSP BRONCHUS OR LUNG C79.51 - SECONDARY MALIGNANT NEOPLASM OF BONE (5) HTN (hypertension) Code(s): I10 - ESSENTIAL (PRIMARY) HYPERTENSION (6) Headache Code(s): R51 - HEADACHE Qualifiers: Headache type: unspecified Headache chronicity pattern: unspecified pattern Intractability: not intractable Qualified Code(s): R51 - Headache (7) Metabolic encephalopathy Code(s): G93.41 - METABOLIC ENCEPHALOPATHY (8) UTI (urinary tract infection) due to Enterococcus Code(s): N39.0 - URINARY TRACT INFECTION, SITE NOT SPECIFIED B95.2 - ENTEROCOCCUS THE CAUSE OF DISEASES CLASSIFIED ELSEWHERE Mrs Walter is a pleasant 71 year old female who came in with weakness and was found to have lung cancer metastatic to her meninges and UTI with AMS. She was admitted to the hospital and her UTI was treated. She was found to have an obstructive hydrocephalus. Neurosurgery was consulted and no surgical intervention was noted. LP was performed and she was found to have malignant cells in her CSF. Oncology was following and she had dexamethasone and IT methotrexate. She did not improve. After discussion with family she will be transferred to [place] for hospice. 36 minutes spent in preparation of this discharge Condition: Poor - Instructions Diet, Activity, Other Instructions: diet and activity for comfort Referrals: Florian Clarke MD [Primary Care Provider] - Disposition: TRANSFER ACUTE CARE/OTHER HOSP - Home Medications Comprehensive Discharge Medication List: Ambulatory Orders Ramipril 2.5 mg PO DAILY 11/07/16 Bacitracin - [Bacitracin Topical Ointment -] 1 applic TP DAILY tube 12/12/16
== END 2016-12-12 13:34 | disposition hospice, inpatient (51) | DRG 180 ==
LOC: JER 18:35 → JERBED 11-07 05:48 → UNDOADMIN 11-07 06:22 → J6S 11-07 08:11
PROVIDERS: ADMIT Specialist; ATTEND Specialist
PROC: 009U3ZX Drainage of Spinal Canal, Percutaneous Approach, Diagnostic (ICD-10-PCS; 2016-11-12)
PROC: B01BYZZ Fluoroscopy of Spinal Cord using Other Contrast (ICD-10-PCS; 2016-11-12)
PROC: 3E0R305 Introduction of Other Antineoplastic into Spinal Canal, Percutaneous Approach (ICD-10-PCS; principal; 2016-11-19)
PROC: 009U3ZX Drainage of Spinal Canal, Percutaneous Approach, Diagnostic (ICD-10-PCS; 2016-11-19)
PROC: B01BYZZ Fluoroscopy of Spinal Cord using Other Contrast (ICD-10-PCS; 2016-11-19)
PROC: 009U3ZX Drainage of Spinal Canal, Percutaneous Approach, Diagnostic (ICD-10-PCS; 2016-11-23)
PROC: B01BYZZ Fluoroscopy of Spinal Cord using Other Contrast (ICD-10-PCS; 2016-11-23)
PROC: 3E0R305 Introduction of Other Antineoplastic into Spinal Canal, Percutaneous Approach (ICD-10-PCS; 2016-11-23)
PROC: 009U3ZX Drainage of Spinal Canal, Percutaneous Approach, Diagnostic (ICD-10-PCS; 2016-11-26)
PROC: B01BYZZ Fluoroscopy of Spinal Cord using Other Contrast (ICD-10-PCS; 2016-11-26)
PROC: 3E0R305 Introduction of Other Antineoplastic into Spinal Canal, Percutaneous Approach (ICD-10-PCS; 2016-11-26)
PROC: 009U3ZX Drainage of Spinal Canal, Percutaneous Approach, Diagnostic (ICD-10-PCS; 2016-11-30)
PROC: B01BYZZ Fluoroscopy of Spinal Cord using Other Contrast (ICD-10-PCS; 2016-11-30)
PROC: 3E0R305 Introduction of Other Antineoplastic into Spinal Canal, Percutaneous Approach (ICD-10-PCS; 2016-11-30)
PROC: 009U3ZX Drainage of Spinal Canal, Percutaneous Approach, Diagnostic (ICD-10-PCS; 2016-12-07)
PROC: B01BYZZ Fluoroscopy of Spinal Cord using Other Contrast (ICD-10-PCS; 2016-12-07)
PROC: 3E0R305 Introduction of Other Antineoplastic into Spinal Canal, Percutaneous Approach (ICD-10-PCS; 2016-12-07)
DX: C34.90 Malignant neoplasm of unspecified part of unspecified bronchus or lung (principal); G93.41 Metabolic encephalopathy; C79.32 Secondary malignant neoplasm of cerebral meninges; N39.0 Urinary tract infection, site not specified; C79.51 Secondary malignant neoplasm of bone; G91.1 Obstructive hydrocephalus; N17.9 Acute kidney failure, unspecified; E87.2 Acidosis; K80.10 Calculus of gallbladder with chronic cholecystitis without obstruction; B37.0 Candidal stomatitis; R51 Headache; I10 Essential (primary) hypertension; R62.7 Adult failure to thrive; E86.0 Dehydration; R41.82 Altered mental status, unspecified; D72.829 Elevated white blood cell count, unspecified; E03.9 Hypothyroidism, unspecified; E11.9 Type 2 diabetes mellitus without complications; Z87.891 Personal history of nicotine dependence
CPT/HCPCS: 36415; 62272; 70450-TC; 70551-TC; 70552-TC; 71020-TC; 71250-TC; 72141-TC; 72146-TC; 72148-TC; 76000-TC; 76098-TC; 76705-TC; 77002-TC; 80048; 80053; 81003; 82140; 82550; 82607; 82945; 83735; 84100; 84157; 84425; 84436; 84443; 84484; 85025; 85384; 85610; 85730; 87040; 87070; 87086; 87186; 87205; 87529; 87899; 88108; 88300-TC; 89050; 93005; 93010; 96420; 97116-GP; 97162; 99284-25; A9576; J8999